=== PATIENT | female | born 1990 | race Caucasian/White ===

== ENCOUNTER → 2017-04-16 16:05 | Outpatient (CLI) | payer SELFPAY ==
[2017-04-16 16:40] LABS: ROM Internal Control Test YES-OK TO RESULT pt. (Internal QC)
[2017-04-16 16:41] LABS: ROM Patient Test Negative (Negative)
== END ==
PROVIDERS: Visit Provider Obstetrics & Gynecology
DX: Z34.83 Encounter for supervision of other normal pregnancy, third trimester (principal)
CPT/HCPCS: 84112

== ENCOUNTER → 2017-04-23 11:07 | Outpatient (CLI) | payer SELFPAY ==
[2017-04-23 11:26] LABS: Hematocrit 35.7 % (37-47); Hemoglobin 12.1 g/dl (12.0-15.0); Mean Corp Hgb Conc 33.9 g/gl (32-36); Mean Corpuscular Volume 88.4 fL (81-99); Mean Platelet Vol. 9.9 fl (6.2-12.0); Platelet Count 257 K/mm3 (150-450); RBC Distribution Width CV 14.2 % (11.6-14.6); RBC Distribution Width SD 45.1 fl (35.1-43.9); Red Blood Count 4.04 M/mm3 (4.2-5.4); Scan Indicated on CBC? Y/N NO; White Blood Count 11.3 K/mm3 (4.4-11.0)
[2017-04-23 11:33] LABS: Protein, Urine (Random) 16.9 mg/dL (<11.9)
[2017-04-23 11:54] LABS: ALB/GLOB Ratio 0.6 RATIO (0.9-2.4); AST(SGOT) 14 U/L (15-37); Alanine Aminotransfer ALT/SGPT 17 U/L (13-56); Albumin, Serum 2.6 g/dL (3.2-5.0); Alkaline Phosphatase 136 U/L (45-117); Anion Gap 10 (5-15); BUN 6 mg/dL (7-18); BUN/Creat Ratio 15.2 RATIO (10-20); Calcium,Total 8.4 mg/dL (8.5-10.1); Chloride 106 mmol/L (98-107); Creatinine, Serum 0.39 mg/dL (0.55-1.02); EST Glomerular Filtration Rate 205 mL/min (>60); Est Glom Filt Rate - Afr Amer 248 mL/min (>60); Globulin 4.4 g/dL (2.2-4.2); Glucose 79 mg/dL (74-106); Potassium 3.8 mmol/L (3.5-5.1); Sodium Level 137 mmol/L (136-145); Uric Acid 4.9 mg/dL (2.6-6.0)
== END ==
DX: O12.03 Gestational edema, third trimester (principal); R03.0 Elevated blood-pressure reading, without diagnosis of hypertension; Z3A.00 Weeks of gestation of pregnancy not specified
CPT/HCPCS: 36415; 80053; 82570; 84156; 84550; 85027

== ENCOUNTER 2017-05-03 02:20 | Inpatient (IN) | payer SELFPAY ==
[2017-05-03 03:31] VITALS: BMI 42.0
[2017-05-03] MEDS: Lactated Ringers 1,000 ML 50 ML IV ×5 (03:45→19:32)
[2017-05-03 03:58] LABS: Hemoglobin 12.1 g/dl (12.0-15.0); Mean Corp Hgb Conc 33.6 g/gl (32-36); Mean Corpuscular Hgb 29.8 pg (27.0-32.0); Mean Corpuscular Volume 88.7 fL (81-99); Mean Platelet Vol. 10.5 fl (6.2-12.0); Platelet Count 250 K/mm3 (150-450); RBC Distribution Width CV 14.6 % (11.6-14.6); RBC Distribution Width SD 46.1 fl (35.1-43.9); Red Blood Count 4.06 M/mm3 (4.2-5.4); White Blood Count 16.6 K/mm3 (4.4-11.0)
[2017-05-03 04:02] LABS: Scan Indicated on CBC? Y/N NO
[2017-05-03] MEDS: Acetaminophen 325 MG Tablet PO ×2 (08:32→16:06)
[2017-05-03] MEDS: Oxytocin 30 units/NS 500 ml 30 UNITS/500 ML IV.SOLN IV (10:00)
[2017-05-03] MEDS: 0.9% Saline Lock 10 ML Syringe IV ×2 (13:13→21:04)
--- NOTE | 2017-05-03 18:30 | PCM.PN.BLA ---
Progress Note LABOR PROGRESS NOTE No complaints. She is comfortable. AVSS GEN - NAD FHR 130, moderate variabiliyt, + accelerations, + variable decelerations TOCO 4/10 min SVE 8/90/-2 by my exam. A/P: 26yo G1 @ 40wga in active labor, Cat II FHR -Unclear progression of labor curve. Will repeat exam in approximately 2 hours and if unchanged plan for section. - status overall reassuring
--- NOTE | 2017-05-03 20:45 | PCM.PN.BLA ---
Progress Note LABOR PROGRESS NOTE Relates she is feeling more painfulness in the vagina and in her left lower abdomen. AVSS GEN - NAD, AAO x 3 FHR 150, moderate variability, + acceleratoins, + variable deceleration, + prolonged deceleration TOCO 5/10 min SVE 8/90/0, no signifificant caput A/P: 26yo G1 @ 40wga in active labor, Cat II FHR -Protracted active phase however significant change in station since my last exam -Plan for repeat exam in 2 hours -Anesthesiology consult for pain management
[2017-05-03] MEDS: Ondansetron 4 MG/2 ML Vial IV (22:57)
--- NOTE | 2017-05-03 23:01 | PCM.PN.BLA ---
Progress Note LABOR PROGRESS NOTE Relates discomfort has returned. AVSS GEN- NAD, AAO x 3 SVE 8-8.5/90/0 TOCO 4/10 min FHR 135, moderate variability, + accelerations, no decelerations A/P: 26yo G1 @ 40wga in active labor with arrest of dilation, Cat I FHR -Findings reviewed. Patient with 8cm dilation since approximately 1100h-1430h with only change in station. -Given no significant change at this time, recommend proceed with section. -Reviewed indications, risks including pain, bleeding, infection, injury to bowel or bladder, hemorrhage, possible hysterectomy, VTE reviewed. Discussed how C/S performed. Patient and family given opportunity to ask questions and questions answered to their satisfaction. - status overall reassuring
[2017-05-03] MEDS: Sodium Citrate/Citric Acid 30 ML UDC PO (23:09)
[2017-05-03] MEDS: Cefazolin 2 GM in 0.9% Normal Saline 100 ML IV (23:30)
[2017-05-03] MEDS: Oxytocin 30 units/NS 500 ml 30 UNITS/500 ML IV.SOLN 167 UNITS IV (23:51)
[2017-05-03] MEDS: Methylergonovine 0.2 MG/ML Ampul IM (23:53)
[2017-05-04] VITALS (42 sets, daily range): BP systolic 91–148; BP diastolic 54–128; PULSE 100–140; RESP 16–23; TEMP 36.5–37.7; O2SAT 93–100; BMI 42.0; BMI 44.3
--- NOTE | 2017-05-04 | PLAC_PTH ---
PATIENT: ADONIS ADAMS LOC: [facility] U#:[id number] AGE/SX: 26/F ROOM: [facility] RE05/03/[address]: Dr. Fuentes Del Rosario MD : 1990 BED: 1 DIS: 05/07/2017 SPEC #: [id number] RECD: 05/04/17 10:42 STATUS: EARNEST RESurjit #: [id number] MART: 05/04/17 00:[address]: Fuentes Del Rosario DEPT: SURGICAL PATHOLOGY RECD BY: Kenan Pandey ENTERED: 05/04/17 10:42 SP TYPE: PLACENTA OTHR DR: Dr. Jon Pisano, DO No Primary Care Phys Tissues: Placenta, NOS Procedures: Surgery Specimen Level V HEADER OPERATION: Primary section PRE-OP DIAGNOSIS: 40wga, prolonged labor TISSUE SUBMITTED: Placenta MICROSCOPIC DIAGNOSIS Placenta: Placental disc - third trimester placenta (390 gm). - Focal acute vasculitis of subamniotic blood vessels. Membranes ? moderate to severe acute chorioamnionitis. Umbilical cord - three blood vessels and moderate to severe acute funisitis. SJ:stefan 05/07/17 MICROSCOPIC DESCRIPTION Slides are reviewed. GROSS DESCRIPTION SPECIMEN: PLACENTA / CLINICAL INFORMATION: A. Weight: 4.254 kg B. Gestational Age: 40 weeks C. Sex: Male PLACENTAL WEIGHT (POST FIXATION): 390 gm PLACENTAL DIMENSIONS: 21 x 15 x 2 cm PLACENTAL SHAPE: Usual ovoid PLACENTAL WEIGHT FOR GESTATIONAL AGE: Within 10-99th percentile MEMBRANES - Present A. Insertion: Marginal B. Site of rupture from edge: 1 cm from edge of placental disc C. Color of membrane: Claire-greenish consistent with meconium staining. D. Abnormalities: None UMBILICAL CORD - Present A. Color: Claire-huynh B. Insertion: Central C. Length: 2.5 cm. Also present in the container is a detached segment of umbilical cord measuring 32 cm in length and 1.5 to 3 cm in diameter. D. Diameter: Up to 2 cm (attached segment of umbilical cord) E. Number of vessels: Three F. Abnormalities: None PLACENTAL DISC - Present A. Color of surface: Claire-huynh B. surface abnormalities: None C. Maternal cotyledons: Intact with minimal tears D. Attached retro placental clot: No clot E. Cut surface: Dark red and spongy F. Lesions: None G. Separate clot: Absent SECTIONS SUBMITTED: 1. Membrane roll 2. Cord, maternal end 3. Cord, end 4. Placental disc, and maternal surfaces 5. Placental disc, and maternal surfaces 6. Placental disc, and maternal surfaces MARCELLO:stefan 05/04/17 TC:2 CPT: 95229
--- NOTE | 2017-05-04 01:14 | OP.PCM_ITS ---
- Problem List (1) 40 weeks gestation of Status: Acute (2) Delivery of by section Status: Acute Delivery Classification: HECTOR Final ANDREA: 05/03/17 Final ANDREA Source: US <20 weeks Gestational age: 40 Weeks and 1 Days Indications: Ms. Marcos is a 26-year-old 1 para 0 at 40 weeks gestational age admitted in labor who progressed to 8-9 cm dilatation with Pitocin augmentation with no further progression of dilatation. She was counseled regarding risks, benefits, indications and opted to proceed with section for arrest of dilation. Informed consent was obtained prior to procedure. Indications for : Prolonged Active Phase, - - Arrest of dilation Description of Procedure: The patient was taken to the operating room and spinal analgesia was administered. She is placed in a dorsal supine position with left lateral tilt. The perineum and abdomen were prepped and draped in sterile fashion. And the spinal was found to be adequate. A Pfannenstiel incision was made using a scalpel and brought down to incise the subcutaneous tissue and rectus fascia at the midline. Subcutaneous tissue was bluntly dissected off the fascia laterally. The fascial incision was dissected laterally and cephalad using curved Tucker scissors. The superior leaflet of the rectus fascia was grasped using Manuel clamps and bluntly dissected and sharply dissected from the underlying rectus muscle. In a similar fashion the inferior rectus fascia was dissected from the underlying muscle. The rectus muscles were bluntly at the midline. The peritoneum was identified and entered [sharply]. Peritoneal incision was extended sharply. The bladder blade was placed into the abdomen and the vesicouterine peritoneal fold identified. The fold was incised and a bladder flap created. Bladder blade was then repositioned to the abdomen. A low transverse hysterotomy was made using the [Metzenbaum scissors] to level of the membranes. The hysterotomy was extended bluntly cephalad and caudad. The membranes were then ruptured revealing questionably light meconium versus mucopurulent fluid. The head was elevated and brought to the level of the hysterotomy and the infant delivered revealing vigorous [male] . The cord was doubly clamped and cut. The infant was passed to awaiting [nursery personnel]. The placenta was manually removed from the uterus following cord avulsion and appeared intact on inspection. The uterus was rubberized cleared of debris. There was difficulty achieving visualization initially due to blood loss from the hysterotomy and mild uterine atony. A single dose of IM Methergine was administered in addition to IV pitocin. The hysterotomy was then repaired using 0 Vicryl running lock suture then returned to the abdomen. However the hysterotomy appeared mal- approximated with the abdominal peritoneum. Hysterotomy stitch was removed. The bladder blade was then repositioned to the abdomen. And the inferior edges of the hysterotomy were grasped. The hysterotomy was again repaired using 0 Vicryl running lock suture with evangelical of normal anatomy. a second imbricating layer was also placed for additional hemostasis. A figure of 8 stitch was placed at the left hysterotomy for additional hemostasis with hemostasis attained. Paracolic gutters were packed in the hysterotomy inspected for 2 minutes with excellent hemostasis. Sean was placed for continued hemostasis along denuded peritoneum. And the packing laps are removed. The bladder blade was removed. The anterior cul-de-sac was cleared of debris. The peritoneum was reapproximated using 2-0 Vicryl running suture. The rectus fascia was closed using 0 Vicryl running suture. The subcutaneous tissue was sponge irrigated and small capillary bleeding controlled using the Bovie device. The subcutaneous tissue was reapproximated using 2-0 Vicryl. The skin was closed using 4-0 Monocryl subcuticularly by the UNIFORM ATTENDANT under my supervision. This was followed by [place] and a Mepilex occlusive dressing was placed over the incision. The fundus was firm. The patient was then transferred to the recovery room without complication. Sponge, instrument, and needle counts were correct ?2. Infant weight 4254g Amniotic Membrane Rupture Type: Spontaneous Amniotic Fluid Description: Moderate meconium Placenta Disposition: [facility] Specimen(s) sent to pathology: placenta Drain: Franco to straight drain Fluids Replaced: 1500 mL Cord Entanglement: None Nuchal Cord Compression: Without compression Cord Vessel Description: 3 Vessels Esitmated Blood Loss (ml): 1400 Infant Gender: Male (1 minute): 9 (5 minute): 9 Delayed cord clamping: Yes Pre-op Antibiotic Given: Ancef 2 grams IV x1 Pt instructed on risks of surgery: Bleeding, Infection, Injury to surrounding structure(s) including bowel and bladder, - - Possible hysterectomy - Admit VTE Documentation VTE Present on Admission: No VTE Mechan Device Prophylaxis: SCD's VTE Pharm Prophylaxis ordered?: No
[2017-05-04] MEDS: miSOPROStol 200 MCG Tablet 800 MCG RECTAL (01:20)
[2017-05-04] MEDS: Carboprost Tromethamine 250 MCG/ML Ampul IM ×3 (01:39→03:11)
[2017-05-04 01:41] LABS: Hematocrit 24.8 % (37-47); Hemoglobin 8.2 g/dl (12.0-15.0); Mean Corp Hgb Conc 33.1 g/gl (32-36); Mean Corpuscular Volume 90.8 fL (81-99); Mean Platelet Vol. 9.9 fl (6.2-12.0); Platelet Count 285 K/mm3 (150-450); RBC Distribution Width CV 14.6 % (11.6-14.6); RBC Distribution Width SD 46.4 fl (35.1-43.9); Red Blood Count 2.73 M/mm3 (4.2-5.4)
[2017-05-04 01:42] LABS: Scan Indicated on CBC? Y/N NO
[2017-05-04 01:49] LABS: International Normalized Ratio 1.3; Prothrombin Time (Protime)PT. 16.1 SECONDS (11.7-14.9)
[2017-05-04 01:50] LABS: Fibrinogen 484 mg/dl (203-444); Partial Thromboplast Time 28.3 Seconds (24.1-36.2)
[2017-05-04] MEDS: Clindamycin 900 MG/50 ML BAG 75 MG IV ×3 (02:50→22:26)
[2017-05-04 03:18] LABS: Absolute Neutrophil Count 14.5 X10^3/uL (2.0-7.7); Basophil# 0.01 X10^3/uL; Basophil% 0.1 % (0-1); Eosinophil# 0.02 X10^3/uL; Eosinophils% 0.1 % (0-5); Fibrinogen 313 mg/dl (203-444); Hematocrit 23.9 % (37-47); Hemoglobin 7.9 g/dl (12.0-15.0); International Normalized Ratio 1.6; Lymphocyte % 7.6 % (19-41); Mean Corp Hgb Conc 33.1 g/gl (32-36); Mean Corpuscular Hgb 28.9 pg (27.0-32.0); Mean Corpuscular Volume 87.5 fL (81-99); Mean Platelet Vol. 9.2 fl (6.2-12.0); Monocyte# 1.21 X10^3/uL; Monocyte% 7.1 % (0-10); Neutrophil # 14.51 X10^3/uL (2.7-7.7); Neutrophil % 84.6 % (47-70); Partial Thromboplast Time 31.5 Seconds (24.1-36.2); Platelet Count 221 K/mm3 (150-450); Prothrombin Time (Protime)PT. 18.1 SECONDS (11.7-14.9); RBC Distribution Width CV 15.2 % (11.6-14.6); RBC Distribution Width SD 48.6 fl (35.1-43.9); Red Blood Count 2.73 M/mm3 (4.2-5.4); White Blood Count 17.1 K/mm3 (4.4-11.0)
[2017-05-04 03:19] LABS: Differential Indicated SCAN CRITERIA MET; POSITIVE COUNT NO; POSITIVE DIFFERENTIAL NO; POSITIVE MORPHOLOGY YES
--- NOTE | 2017-05-04 03:40 | RAD_ITS ---
STUDY: X-RAY - PELVIS REASON FOR EXAM: Female, 26 years old. Question foreign body, no confluent sponges or instrumentation done prior to emergent . TECHNIQUE: One view of the pelvis was obtained. COMPARISON: None. FINDINGS: There is a catheter superimposed over the midline urinary bladder level and a catheter coiling over the mid and right pelvis possible a drain. No other radiopaque densities detected. Normal visualized soft tissue structures. Normal bilateral iliac wings, sacroiliac joints and visualized sacrum. Normal visualized bilateral superior and inferior pubic rami. Normal pubic symphysis. Normal ischial tuberosities. Normal visualized right femoral head. Normal right acetabulum. Normal right hip joint. Normal visualized left femoral head. Normal left acetabulum. Normal left hip joint. RAD/Pelvis 1 or 2 Views IMPRESSION: Catheters as outlined above. No other foreign bodies noted. Electronically Signed: Gila Vargas MD at 4:41 EST , Service support ,
--- NOTE | 2017-05-04 03:48 | NURSING ---
0345 report called to INSPECTOR AUTOMATIC TYPEWRITERARLIN Hernandez
[2017-05-04 03:50] LABS: Hematocrit 27.3 % (37-47); Hemoglobin 9.2 g/dl (12.0-15.0); Mean Corp Hgb Conc 33.7 g/gl (32-36); Mean Corpuscular Volume 88.9 fL (81-99); Mean Platelet Vol. 9.8 fl (6.2-12.0); Platelet Count 188 K/mm3 (150-450); RBC Distribution Width CV 14.5 % (11.6-14.6); RBC Distribution Width SD 45.2 fl (35.1-43.9); Red Blood Count 3.07 M/mm3 (4.2-5.4); Scan Indicated on CBC? Y/N NO; White Blood Count 13.8 K/mm3 (4.4-11.0)
[2017-05-04 04:22] LABS: LDH 201 U/L (84-246)
[2017-05-04 04:24] LABS: ALB/GLOB Ratio 0.6 RATIO (0.9-2.4); AST(SGOT) 14 U/L (15-37); Alanine Aminotransfer ALT/SGPT 8 U/L (13-56); Albumin, Serum 1.1 g/dL (3.2-5.0); Alkaline Phosphatase 66 U/L (45-117); Anion Gap 10 (5-15); BUN 5 mg/dL (7-18); BUN/Creat Ratio 11.2 RATIO (10-20); Chloride 109 mmol/L (98-107); Creatinine, Serum 0.44 mg/dL (0.55-1.02); EST Glomerular Filtration Rate 178 mL/min (>60); Est Glom Filt Rate - Afr Amer 215 mL/min (>60); Estimated Creatinine Clearance 143.64 ml/min; Glucose 134 mg/dL (74-106); Potassium 4.7 mmol/L (3.5-5.1); Protein, Total 3.1 g/dL (6.4-8.2); Sodium Level 138 mmol/L (136-145)
--- NOTE | 2017-05-04 04:37 | PCM.OPRPT ---
Problem List (1) Delivery of by section Status: Acute (2) hemorrhage Status: Acute Qualifiers: hemorrhage type: other immediate Qualified Code(s): O72.1 - Other immediate hemorrhage (3) Endometritis Status: Acute Report of Operation Date of Procedure: 05/04/17 Pre-Operative Diagnosis: Status post section, hemorrhage Post-Operative Diagnosis: Status post section, hemorrhage, endometritis Surgery/Procedure Performed:: Examination under anesthesia, dilation and curettage, Bakri balloon placement Description of Surgical Findings:: Lower uterine segment atony test preparation tutor: Alison Esposito Type of Anesthesia:: MAC Anesthesiologist: Betty Saleh Specimen's removed: none Drains: Bakri - no drainage Estimated Blood Loss (mL): 1490 mL Description of Procedure: The labor and delivery nurse requested I return to the OR shortly after I completed patient section for vaginal bleeding. On my arrival the patient had some blood and clots on a Chux pad. Her fundus was firm. Intrauterine exam was performed retrieving approximately 500 cc of blood and clot in addition to what was already present. There was heavy vaginal bleeding and the patient had become significantly tachycardic and was noted to have pallor. At this time I decided to proceed with an examination under anesthesia. Cytotec 800 mcg was placed per rectally. Following discussion with the APPLIANCE SERVICE TECHNICIAN, MAC was performed. I quickly left the OR to discuss the turn of events with Nelli's , Robert, and reviewed with him my concern for hemorrhage and the necessity of identifying its source and cause, my plan to proceed with examination under anesthesia, and blood transfusion. He was in agreement with plan. On return to the OR the patient was comfortable and in dorsal lithotomy. The perineum was prepped and draped in sterile fashion. Vaginal wall retractors were placed. There was no vaginal laceration present and I walked ring forceps around the cervix 360? . There was no evidence of cervical laceration. I performed ultrasound-guided curettage with no retrieval of products of conception. This is also followed by gauze curettage with some improvement of lower uterine segment tone however the bleeding continued. At this time the patient was given a dose of Hemabate IM. I placed a Bakri balloon with a total of 360 cc of normal saline however there was little drainage on return. The vagina was packed. Transexamic acid was also administered IV. The patient's heart rate had improved from the 160s down to the 120s-130s and her blood pressure remained stable however her heart rate did not decrease further. On ultrasound there is no evidence of free fluid in the abdomen or pelvis however this was limited by body habitus. Blood transfusion was started in the examination under anesthesia. I suspected the source of bleeding was subclinical chorioamnionitis now endometritis given the presence of the questionably mucopurulent amniotic fluid noted at the time of rupture during section. There was no other evidence for source of bleeding. Gentamicin and clindamycin were ordered.There was no significant free fluid in pelvis noted on US. I waited approximately 15 minutes however there was no further improvement of the patient's vitals and mild abdominal distention was noted, thus I opted to proceed with exploratory laparotomy. Please see operative note for further details laparotomy. Sponge counts for the EUA were correct x 2. - Admit VTE Documentation VTE Present on Admission: No VTE Mechan Device Prophylaxis: SCD's VTE Pharm Prophylaxis ordered?: No
--- NOTE | 2017-05-04 05:05 | NURSING ---
4,000ml total IV intake per anesthesia this includes all IV fluids and blood products. see anesthesia record
--- NOTE | 2017-05-04 05:17 | PCM.OPRPT ---
Problem List (1) Delivery of by section Status: Acute (2) hemorrhage Status: Acute (3) Endometritis Status: Acute Report of Operation Date of Procedure: 05/04/17 Pre-Operative Diagnosis: Status post section, hemorrhage Post-Operative Diagnosis: Status post section, hemorrhage, endometritis Surgery/Procedure Performed:: Exploratory laparotomy Description of Surgical Findings:: Lower uterine segment atony artificial flowers starcher: Mela Henry artificial flowers starcher: Alison Esposito Type of Anesthesia:: General Anesthesiologist: Tristin Fierro Specimen's removed: none Drains: LISET Estimated Blood Loss (mL): 400 Description of Procedure: Prior operative notes and progress notes for details of patient's hemorrhage. Given persistent tachycardia in setting of hemorrhage despite intravenous fluid resuscitation and blood transfusion and vaginal packings, I recommended proceeding with exploratory laparotomy. I reviewed with Nelli's Robert, my concern and the importance of ruling out any internal/intra-abdominal source of bleeding as this must be addressed if present to ensure hemodynamic stability. I discussed with him potential for further surgery, including hysterectomy, and reviewed risks of laparotomy. Her agreed with plan to proceed with laparotomy. The vaginal packing was removed and the patient was placed into the dorsal supine position. She was under general anesthesia and intubated. The abdomen was prepped and draped in sterile fashion. The Pfannenstiel incision was taken down using scalpel and scissors to level the peritoneum. The peritoneal sutures were cut and the abdomen entered. The uterus was exteriorized and inspected. The uterus was boggy at the lower uterine segment and the BAKRI balloon was not palpable. I began vigorous massage of the uterus. At this time Dr. Pham performed an examination vaginally and it appeared that the bulky balloon had expulsed. Intramyometrial hemabate was placed. The Bakri balloon was replaced with a total of 320 cc normal saline and subsequently drained 300 mL of blood. A second dose intramyometrial hemabate dose was also injected. Uterine tone had improved. The posterior cul-de-sac was cleared of debris and clots and the uterus and adnexa were returned to the abdomen. The hysterotomy was again inspected there was no bleeding along the suture line. There was a small amount of capillary bleeding from along denuded peritoneum of the inferior broad ligament bilaterally but no active bleeding. FloSeal was placed at these sites for additional hemostasis. I proceeded with closure given no active bleeding. The peritoneum was reapproximated with the muscle using 2-0 Vicryl mattress sutures. Fascia was reapproximated using 0 Vicryl running suture. The subcutaneous tissue was reapproximated using 2-0 Vicryl running suture. Skin was closed using 4-0 Monocryl. Sean was placed along each of the tissue layers from the hysterotomy, muscle, fascia, subcutaneous tissue layer. The fundus remained firm and a Mepilex occlusive dressing was placed. The sponge and instrument count was correct x 2, however, as the count occurred after opening of the tray and laparotomy, an abdominal film was obtained. The abdominal film had no evidence of retained sponge, needle or instruments. That patient was awakened, extubated and transferred to the ICU for recovery and post-op care. - Admit VTE Documentation VTE Present on Admission: No VTE Mechan Device Prophylaxis: SCD's VTE Pharm Prophylaxis ordered?: No
--- NOTE | 2017-05-04 05:25 | OP.PCM_ITS ---
Problem List (1) Delivery of by section Status: Acute (2) hemorrhage Status: Acute (3) Endometritis Status: Acute Report of Operation Date of Procedure: 05/04/17 Pre-Operative Diagnosis: Status post section, hemorrhage Post-Operative Diagnosis: Status post section, hemorrhage, endometritis Surgery/Procedure Performed:: Exploratory laparotomy Description of Surgical Findings:: Lower uterine segment atony regulatory internship: Mela Henry regulatory internship: Alison Esposito Type of Anesthesia:: General Anesthesiologist: Tristin Fierro Specimen's removed: none Drains: LISET Estimated Blood Loss (mL): 400 Description of Procedure: Prior operative notes and progress notes for details of patient's hemorrhage. Given persistent tachycardia in setting of hemorrhage despite intravenous fluid resuscitation and blood transfusion and vaginal packings, I recommended proceeding with exploratory laparotomy. I reviewed with Nelli's Robert, my concern and the importance of ruling out any internal/intra- abdominal source of bleeding as this must be addressed if present to ensure hemodynamic stability. I discussed with him potential for further surgery, including hysterectomy, and reviewed risks of laparotomy. Her agreed with plan to proceed with laparotomy. The vaginal packing was removed and the patient was placed into the dorsal supine position. She was under general anesthesia and intubated. The abdomen was prepped and draped in sterile fashion. The Pfannenstiel incision was taken down using scalpel and scissors to level the peritoneum. The peritoneal sutures were cut and the abdomen entered. The uterus was exteriorized and inspected. The uterus was boggy at the lower uterine segment and the BAKRI balloon was not palpable. I began vigorous massage of the uterus. At this time Dr. Pham performed an examination vaginally and it appeared that the bulky balloon had expulsed. Intramyometrial hemabate was placed. The Bakri balloon was replaced with a total of 320 cc normal saline and subsequently drained 300 mL of blood. A second dose intramyometrial hemabate dose was also injected. Uterine tone had improved. The posterior cul-de-sac was cleared of debris and clots and the uterus and adnexa were returned to the abdomen. The hysterotomy was again inspected there was no bleeding along the suture line. There was a small amount of capillary bleeding from along denuded peritoneum of the inferior broad ligament bilaterally but no active bleeding. FloSeal was placed at these sites for additional hemostasis. I proceeded with closure given no active bleeding. The peritoneum was reapproximated with the muscle using 2-0 Vicryl mattress sutures. Fascia was reapproximated using 0 Vicryl running suture. The subcutaneous tissue was reapproximated using 2-0 Vicryl running suture. Skin was closed using 4-0 Monocryl. Sean was placed along each of the tissue layers from the hysterotomy, muscle, fascia, subcutaneous tissue layer. The fundus remained firm and a Mepilex occlusive dressing was placed. The sponge and instrument count was correct x 2, however, as the count occurred after opening of the tray and laparotomy, an abdominal film was obtained. The abdominal film had no evidence of retained sponge, needle or instruments. That patient was awakened, extubated and transferred to the ICU for recovery and post-op care. - Admit VTE Documentation VTE Present on Admission: No VTE Mechan Device Prophylaxis: SCD's VTE Pharm Prophylaxis ordered?: No
--- NOTE | 2017-05-04 06:05 | NURSING ---
called by this RN. notified of no change in fundal exam, blood clots noted in tapanode balloon tubing, RN attempted to milk small clots out of tubing without success. New order received to flush tampanode with 10-20 ml NS x1. physician updated on vaginal packing noted to have small amts of lochia on it. HR 120's and DIRK drained has been emptied for 100ml and approximately 50ml of drainage noted in dirk drain by ROCK LOADER 0611 balloon tamponade flushed with 20ml NS, flushed easily
[2017-05-04] MEDS: Cefazolin 1 GM/50 ML BAG IV ×2 (06:47→14:02)
--- NOTE | 2017-05-04 06:47 | NURSING ---
please see ICU charting for vital signs and intake and outputs
[2017-05-04] MEDS: 0.9% NaCl IVPB Med Flush (250 mL) 15 ML IV (06:56)
[2017-05-04] MEDS: Methylergonovine 0.2 MG/ML Ampul IM (07:14)
--- NOTE | 2017-05-04 07:44 | NURSING ---
between 429 and 714 balloon tamponade remains in place with stop-cock intact
--- NOTE | 2017-05-04 08:06 | NURSING ---
xray obtained in OR after laparotomy completed due to emergency surgery and no time to count
--- NOTE | 2017-05-04 08:20 | NURSING ---
Balloon Tampnod intact and lite pink drainage.
[2017-05-04 08:32] LABS: International Normalized Ratio 1.4; Prothrombin Time (Protime)PT. 16.2 SECONDS (11.7-14.9)
[2017-05-04 08:33] LABS: Fibrinogen 376 mg/dl (203-444); Partial Thromboplast Time 30.6 Seconds (24.1-36.2)
[2017-05-04 08:36] LABS: Basophil# 0.01 X10^3/uL; Hematocrit 21.4 % (37-47); Hemoglobin 7.2 g/dl (12.0-15.0); Mean Corp Hgb Conc 33.6 g/gl (32-36); Mean Corpuscular Hgb 28.7 pg (27.0-32.0); Mean Corpuscular Volume 85.3 fL (81-99); Mean Platelet Vol. 9.1 fl (6.2-12.0); Monocyte# 0.81 X10^3/uL; Neutrophil # 8.94 X10^3/uL (2.7-7.7); Platelet Count 143 K/mm3 (150-450); RBC Distribution Width CV 14.9 % (11.6-14.6); RBC Distribution Width SD 46.3 fl (35.1-43.9); Red Blood Count 2.51 M/mm3 (4.2-5.4); White Blood Count 10.7 K/mm3 (4.4-11.0)
[2017-05-04 08:37] LABS: Differential Indicated SCAN CRITERIA MET; POSITIVE COUNT NO; POSITIVE DIFFERENTIAL NO; POSITIVE MORPHOLOGY YES
[2017-05-04 08:38] LABS: M R Staph aureus DNA By PCR Negative (Negative); Probe Check PASS; Specimen Processing Control PASS
[2017-05-04 08:41] LABS: Anion Gap 11 (5-15); BUN 5 mg/dL (7-18); BUN/Creat Ratio 11.2 RATIO (10-20); Chloride 106 mmol/L (98-107); Creatinine, Serum 0.44 mg/dL (0.55-1.02); Glucose 116 mg/dL (74-106); Potassium 3.7 mmol/L (3.5-5.1); Sodium Level 138 mmol/L (136-145)
--- NOTE | 2017-05-04 08:47 | NURSING ---
Mother initiated pumping and instructions given. Balloon tampnod intact .
[2017-05-04 09:01] LABS: Absolute Lymphocyte Count 0.75 X10^3/ul (0.83-4.51); Absolute Neutrophil Count 7.7 X10^3/uL (2.0-7.7); Scan Smear per Review Criteria MANUAL DIFF; Total Cells Counted 100 (MANUAL DIFF)
[2017-05-04 09:02] LABS: Lymphocyte 7 % (19-41); Metamyelocyte 6 % (0-1); Monocyte 9 % (0-10); Myelocyte 1 (0-0); Neutrophil-Band 10 % (0-5); Neutrophil-Segmented 62 % (47-70)
[2017-05-04 09:10] LABS: Lactic Acid 3.8 mmol/L (0.4-2.0)
--- NOTE | 2017-05-04 09:43 | PCM.CON.CC ---
Reason for Consult Date of Consultation: 05/04/17 Reason for Consultation: hemorrhage History of Present Illness: The patient is a 26-year-old female, with a history as outlined below, who presented on May 03 in labor for planned delivery. Although there were initial plans for vaginal delivery, there was a lack of progression in dilation even with the use of Pitocin augmentation. Therefore, the decision was made to take the patient for a section. During the skein yarn dyer hours of May 04, the patient underwent planned section with 1.4 L of blood loss noted. Short time following the completion of the the patient began to experience heavy vaginal bleeding became significantly tachycardic. The patient subsequently underwent a D&C with Bakri balloon placement. There was concern for potential endometritis given the presence of the mucopurulent amniotic fluid noted at the time of rupture during section. Unfortunately, there was no change in the patient clinically and she was therefore taken for exploratory laparotomy. Throughout the skein yarn dyer hours, she received a total of 4 units of packed red blood cells, along with 4 units of FFP. Postoperatively, she was transferred to the medical intensive care unit for ongoing management. Past Medical History Allergies latex Allergy (Verified 05/03/17 03:30) Rash codeine Adverse Reaction (Verified 05/03/17 03:30) Vomiting Home Medications: Ambulatory Orders Medication Instructions Recorded Vits [Prenatabs FA] 1 tablet PO DAILY 05/03/17 Smoking Status: Never smoker Review of Systems Constitutional: Denies: Chills, Fever, Weight Change HEENT: Denies: Head Aches, Sinus Congestion, Sinus Drainage Cardiovascular: Denies: Chest Pain, Palpitations Respiratory: Denies: Cough, Shortness of breath at rest, Sputum production Gastrointestinal: Reports: Abdominal Pain. Denies: Nausea, Vomiting Genitourinary: Denies: Dysuria Musculoskeletal: Denies: Joint Pain, Joint Tenderness Skin: Denies: Rash, Wounds Neurological: Denies: Numbness, Tingling, Focal weakness Psychiatric: Denies: Anxiety, Depression, Homicidal Ideations, Suicidal Ideations Hematologic/ Lymphatic: Reports: Hx of blood transfusion Patient Problems: Active and Suspected Problems 40 weeks gestation of (Acute) Delivery of by section (Acute) hemorrhage (Acute) Endometritis (Acute) Objective: The patient's most recent lab work, culture data and imaging studies have all been personally reviewed. - Physical Exam General: Alert, Oriented x3, Cooperative, No apparent distress HEENT: Atraumatic, PERRLA, Normocephalic Oral: No Gingival or Mucosal Lesions/ Ulcerations, Dry Mucosa Neck: Supple, No Nodes, Trachea Midline Lungs: No rhonchi, No wheeze, No rales, Diminished Cardiovascular: Normal S1, Normal S2, No murmurs, Tachycardic Abdomen: Soft, Hypoactive Bowel Sounds, Tender, - - Bakri balloon remains in place. LISET drain in place Extremities: No clubbing, No cyanosis, - - Trace lower extremity edema Skin: Incision - Dressed, C/D/I Musculoskeletal: No Muscle Wasting Lymphatic: No Cervical, Supraclavicular, or Inguinal Adenopathy Neurological: Neuro grossly intact Psych/Mental Status: Normal Affect, Appropriate Vital Signs Temp Pulse Resp BP Pulse Ox 98.7 F 125 H 19 H 91/61 98 05/04/17 08:00 05/04/17 08:00 05/04/17 08:00 05/04/17 08:00 05/04/17 09:31 Oxygen Flow Rate 2 Oxygen Delivery Method Nasal Cannula Weight: 227 lb 1.218 oz Body Mass Index (BMI) 44.3 Intake and Output for Last 24 Hours 05/02/17 05/03/17 05/04/17 23:59 23:59 23:59 Intake Total 5320 / 5320 4250.6 / 4250.6 Output Total 2550 / 2550 4690 / 4690 Balance 2770 / 2770 -439.4 / -439.4 Laboratory Tests Past 24 Hrs 05/03/17 05/03/17 05/04/17 03:45 03:45 01:25 WBC 20.0 H RBC 2.73 L Hgb 8.2 L Hct 24.8 L MCV 90.8 MCH 30.0 MCHC 33.1 RDW 14.6 RDW Differential 46.4 H Plt Count 285 MPV 9.9 Immature Gran % (Auto) Neut % (Auto) Lymph % (Auto) [place] % (Auto) Eos % (Auto) Baso % (Auto) Absolute Neuts (auto) Absolute Lymphs (auto) Total Counted Neutrophils % (Manual) Band Neutrophils % Lymphocytes % (Manual) Monocytes % (Manual) Metamyelocytes % Myelocytes % Diff Path Review PT INR APTT Fibrinogen Sodium Potassium Chloride Carbon Dioxide Anion Gap BUN Creatinine Estim Creat Clear Calc Est GFR (MDRD) Af Amer Est GFR (MDRD) Non-Af BUN/Creatinine Ratio Glucose Lactic Acid Calcium Ionized Calcium Total Bilirubin AST ALT Alkaline Phosphatase Lactate Dehydrogenase Total Protein Albumin Globulin Albumin/Globulin Ratio MRSA (PCR) Crossmatch See Detail See Detail 05/04/17 05/04/17 05/04/17 01:25 02:50 02:50 WBC 17.1 H RBC 2.73 L Hgb 7.9 L Hct 23.9 L MCV 87.5 MCH 28.9 MCHC 33.1 RDW 15.2 H RDW Differential 48.6 H Plt Count 221 MPV 9.2 Immature Gran % (Auto) 0.500 Neut % (Auto) 84.6 H Lymph % (Auto) 7.6 L [place] % (Auto) 7.1 Eos % (Auto) 0.1 Baso % (Auto) 0.1 Absolute Neuts (auto) 14.5 H Absolute Lymphs (auto) 1.30 Total Counted Not Reportable Neutrophils % (Manual) Band Neutrophils % Lymphocytes % (Manual) Monocytes % (Manual) Metamyelocytes % Myelocytes % Diff Path Review PT 16.1 H 18.1 H INR 1.3 1.6 APTT 28.3 31.5 Fibrinogen 484 H 313 Sodium Potassium Chloride Carbon Dioxide Anion Gap BUN Creatinine Estim Creat Clear Calc Est GFR (MDRD) Af Amer Est GFR (MDRD) Non-Af BUN/Creatinine Ratio Glucose Lactic Acid Calcium Ionized Calcium Total Bilirubin AST ALT Alkaline Phosphatase Lactate Dehydrogenase Total Protein Albumin Globulin Albumin/Globulin Ratio MRSA (PCR) Crossmatch 05/04/17 05/04/17 05/04/17 02:50 02:50 03:32 WBC 13.8 H RBC 3.07 L Hgb 9.2 L Hct 27.3 L MCV 88.9 MCH 30.0 MCHC 33.7 RDW 14.5 RDW Differential 45.2 H Plt Count 188 MPV 9.8 Immature Gran % (Auto) Neut % (Auto) Lymph % (Auto) [place] % (Auto) Eos % (Auto) Baso % (Auto) Absolute Neuts (auto) Absolute Lymphs (auto) Total Counted Neutrophils % (Manual) Band Neutrophils % Lymphocytes % (Manual) Monocytes % (Manual) Metamyelocytes % Myelocytes % Diff Path Review PT INR APTT Fibrinogen Sodium 138 Potassium 4.7 Chloride 109 H Carbon Dioxide 19.0 L Anion Gap 10 BUN 5 L Creatinine 0.44 L Estim Creat Clear Calc 143.64 Est GFR (MDRD) Af Amer 215 Est GFR (MDRD) Non-Af 178 BUN/Creatinine Ratio 11.2 Glucose 134 H Lactic Acid Calcium 6.0 L* Ionized Calcium Total Bilirubin 0.70 AST 14 L ALT 8 L Alkaline Phosphatase 66 Lactate Dehydrogenase 201 Total Protein 3.1 L Albumin 1.1 L Globulin 2.0 L Albumin/Globulin Ratio 0.6 L MRSA (PCR) Crossmatch 05/04/17 05/04/17 05/04/17 06:00 08:15 08:15 WBC RBC Hgb Hct MCV MCH MCHC RDW RDW Differential Plt Count MPV Immature Gran % (Auto) Neut % (Auto) Lymph % (Auto) [place] % (Auto) Eos % (Auto) Baso % (Auto) Absolute Neuts (auto) Absolute Lymphs (auto) Total Counted Neutrophils % (Manual) Band Neutrophils % Lymphocytes % (Manual) Monocytes % (Manual) Metamyelocytes % Myelocytes % Diff Path Review PT 16.2 H INR 1.4 APTT 30.6 Fibrinogen 376 Sodium 138 Potassium 3.7 Chloride 106 Carbon Dioxide 21.0 Anion Gap 11 BUN 5 L Creatinine 0.44 L Estim Creat Clear Calc Est GFR (MDRD) Af Amer Est GFR (MDRD) Non-Af BUN/Creatinine Ratio 11.2 Glucose 116 H Lactic Acid Calcium Ionized Calcium Total Bilirubin AST ALT Alkaline Phosphatase Lactate Dehydrogenase Total Protein Albumin Globulin Albumin/Globulin Ratio MRSA (PCR) Negative Crossmatch 05/04/17 05/04/17 05/04/17 08:15 08:15 08:20 WBC 10.7 RBC 2.51 L Hgb 7.2 L Hct 21.4 L MCV 85.3 MCH 28.7 MCHC 33.6 RDW 14.9 H RDW Differential 46.3 H Plt Count 143 L MPV 9.1 Immature Gran % (Auto) HAND COOPER HELPER Neut % (Auto) HAND COOPER HELPER Lymph % (Auto) HAND COOPER HELPER [place] % (Auto) HAND COOPER HELPER Eos % (Auto) HAND COOPER HELPER Baso % (Auto) HAND COOPER HELPER Absolute Neuts (auto) 7.7 Absolute Lymphs (auto) 0.75 L Total Counted 100 Neutrophils % (Manual) 62 Band Neutrophils % 10 H Lymphocytes % (Manual) 7 L Monocytes % (Manual) 9 Metamyelocytes % 6 H Myelocytes % 1 H Diff Path Review May foll PT INR APTT Fibrinogen Sodium Potassium Chloride Carbon Dioxide Anion Gap BUN Creatinine Estim Creat Clear Calc Est GFR (MDRD) Af Amer Est GFR (MDRD) Non-Af BUN/Creatinine Ratio Glucose Lactic Acid 3.8 H Calcium Ionized Calcium Pending Total Bilirubin AST ALT Alkaline Phosphatase Lactate Dehydrogenase Total Protein Albumin Globulin Albumin/Globulin Ratio MRSA (PCR) Crossmatch Clinical Impression(s) from Imaging Studies Pelvis X-Ray 05/04/17 03:40 IMPRESSION: Catheters as outlined above. No other foreign bodies noted. Electronically Signed: Gila Vargas MD at 4:41 EST , Service support , Assessment/Plan Active and Suspected Problems 40 weeks gestation of (Acute) Delivery of by section (Acute) hemorrhage (Acute) Endometritis (Acute) RECOMMENDATIONS: 1. Continue to monitor serial blood counts. Hemoglobin again fell to 7.2 g/dL this morning. Therefore, the patient will receive an additional 2 units of packed red blood cells. 2. Recheck H&H 1 hour posttransfusion completion. 3. Continue antibiotics per OB 4. Clear liquid diet per OB. No need for supplemental IV fluids for now. 5. Oxycodone for pain 6. Wean supplemental oxygen to maintain saturations at or above 90%. 7. Encourage incentive spirometer use IMPRESSIONS: 1. Acute blood loss anemia secondary to hemorrhage Continue to monitor blood counts regularly. Will transfuse 2 units of additional packed red blood cells, given that the patient's hemoglobin was noted be 7.2 g/dL this morning. Check H&H 1 hour post transfusion. 2. Thrombocytopenia Likely consumptive in nature secondary to hemorrhage. No indication for transfusion at this time. We will continue to monitor. 3. Lactic acidemia Secondary to #1. Plan to repeat serum lactate level in 6 hours. Continue supplemental IV fluids and blood product administration in order to maintain hemodynamic stability. This note was generated with [employer] software. It may contain incorrect words, spelling, and punctuation that were not noted in checking the note before signing. Code Visit Inpatient E&M: 02572 Init Hosp L3
--- NOTE | 2017-05-04 09:53 | CON.PCM_ITS ---
Reason for Consult Date of Consultation: 05/04/17 Reason for Consultation: hemorrhage History of Present Illness: The patient is a 26-year-old female, with a history as outlined below, who presented on May 03 in labor for planned delivery. Although there were initial plans for vaginal delivery, there was a lack of progression in dilation even with the use of Pitocin augmentation. Therefore, the decision was made to take the patient for a section. During the telegraphic typewriter operator chief hours of May 04, the patient underwent planned section with 1.4 L of blood loss noted. Short time following the completion of the the patient began to experience heavy vaginal bleeding became significantly tachycardic. The patient subsequently underwent a D&C with Bakri balloon placement. There was concern for potential endometritis given the presence of the mucopurulent amniotic fluid noted at the time of rupture during section. Unfortunately, there was no change in the patient clinically and she was therefore taken for exploratory laparotomy. Throughout the telegraphic typewriter operator chief hours , she received a total of 4 units of packed red blood cells, along with 4 units of FFP. Postoperatively, she was transferred to the medical intensive care unit for ongoing management. Past Medical History Allergies latex Allergy (Verified 05/03/17 03:30) Rash codeine Adverse Reaction (Verified 05/03/17 03:30) Vomiting Home Medications: Ambulatory Orders Medication Instructions Recorded Vits [Prenatabs FA] 1 tablet PO DAILY 05/03/17 Smoking Status: Never smoker Review of Systems Constitutional: Denies: Chills, Fever, Weight Change HEENT: Denies: Head Aches, Sinus Congestion, Sinus Drainage Cardiovascular: Denies: Chest Pain, Palpitations Respiratory: Denies: Cough, Shortness of breath at rest, Sputum production Gastrointestinal: Reports: Abdominal Pain. Denies: Nausea, Vomiting Genitourinary: Denies: Dysuria Musculoskeletal: Denies: Joint Pain, Joint Tenderness Skin: Denies: Rash, Wounds Neurological: Denies: Numbness, Tingling, Focal weakness Psychiatric: Denies: Anxiety, Depression, Homicidal Ideations, Suicidal Ideations Hematologic/ Lymphatic: Reports: Hx of blood transfusion Patient Problems: Active and Suspected Problems 40 weeks gestation of (Acute) Delivery of by section (Acute) hemorrhage (Acute) Endometritis (Acute) Objective: The patient's most recent lab work, culture data and imaging studies have all been personally reviewed. - Physical Exam General: Alert, Oriented x3, Cooperative, No apparent distress HEENT: Atraumatic, PERRLA, Normocephalic Oral: No Gingival or Mucosal Lesions/ Ulcerations, Dry Mucosa Neck: Supple, No Nodes, Trachea Midline Lungs: No rhonchi, No wheeze, No rales, Diminished Cardiovascular: Normal S1, Normal S2, No murmurs, Tachycardic Abdomen: Soft, Hypoactive Bowel Sounds, Tender, - - Bakri balloon remains in place. LISET drain in place Extremities: No clubbing, No cyanosis, - - Trace lower extremity edema Skin: Incision - Dressed, C/D/I Musculoskeletal: No Muscle Wasting Lymphatic: No Cervical, Supraclavicular, or Inguinal Adenopathy Neurological: Neuro grossly intact Psych/Mental Status: Normal Affect, Appropriate Vital Signs Temp Pulse Resp BP Pulse Ox 98.7 F 125 H 19 H 91/61 98 05/04/17 08:00 05/04/17 08:00 05/04/17 08:00 05/04/17 08:00 05/04/17 09:31 Oxygen Flow Rate 2 Oxygen Delivery Method Nasal Cannula Weight: 227 lb 1.218 oz Body Mass Index (BMI) 44.3 Intake and Output for Last 24 Hours 05/02/17 05/03/17 05/04/17 23:59 23:59 23:59 Intake Total 5320 / 5320 4250.6 / 4250.6 Output Total 2550 / 2550 4690 / 4690 Balance 2770 / 2770 -439.4 / -439.4 Laboratory Tests Past 24 Hrs 05/03/17 05/03/17 05/04/17 03:45 03:45 01:25 WBC 20.0 H RBC 2.73 L Hgb 8.2 L Hct 24.8 L MCV 90.8 MCH 30.0 MCHC 33.1 RDW 14.6 RDW Differential 46.4 H Plt Count 285 MPV 9.9 Immature Gran % (Auto) Neut % (Auto) Lymph % (Auto) [place] % (Auto) Eos % (Auto) Baso % (Auto) Absolute Neuts (auto) Absolute Lymphs (auto) Total Counted Neutrophils % (Manual) Band Neutrophils % Lymphocytes % (Manual) Monocytes % (Manual) Metamyelocytes % Myelocytes % Diff Path Review PT INR APTT Fibrinogen Sodium Potassium Chloride Carbon Dioxide Anion Gap BUN Creatinine Estim Creat Clear Calc Est GFR (MDRD) Af Amer Est GFR (MDRD) Non-Af BUN/Creatinine Ratio Glucose Lactic Acid Calcium Ionized Calcium Total Bilirubin AST ALT Alkaline Phosphatase Lactate Dehydrogenase Total Protein Albumin Globulin Albumin/Globulin Ratio MRSA (PCR) Crossmatch See Detail See Detail 05/04/17 05/04/17 05/04/17 01:25 02:50 02:50 WBC 17.1 H RBC 2.73 L Hgb 7.9 L Hct 23.9 L MCV 87.5 MCH 28.9 MCHC 33.1 RDW 15.2 H RDW Differential 48.6 H Plt Count 221 MPV 9.2 Immature Gran % (Auto) 0.500 Neut % (Auto) 84.6 H Lymph % (Auto) 7.6 L [place] % (Auto) 7.1 Eos % (Auto) 0.1 Baso % (Auto) 0.1 Absolute Neuts (auto) 14.5 H Absolute Lymphs (auto) 1.30 Total Counted Not Reportable Neutrophils % (Manual) Band Neutrophils % Lymphocytes % (Manual) Monocytes % (Manual) Metamyelocytes % Myelocytes % Diff Path Review PT 16.1 H 18.1 H INR 1.3 1.6 APTT 28.3 31.5 Fibrinogen 484 H 313 Sodium Potassium Chloride Carbon Dioxide Anion Gap BUN Creatinine Estim Creat Clear Calc Est GFR (MDRD) Af Amer Est GFR (MDRD) Non-Af BUN/Creatinine Ratio Glucose Lactic Acid Calcium Ionized Calcium Total Bilirubin AST ALT Alkaline Phosphatase Lactate Dehydrogenase Total Protein Albumin Globulin Albumin/Globulin Ratio MRSA (PCR) Crossmatch 05/04/17 05/04/17 05/04/17 02:50 02:50 03:32 WBC 13.8 H RBC 3.07 L Hgb 9.2 L Hct 27.3 L MCV 88.9 MCH 30.0 MCHC 33.7 RDW 14.5 RDW Differential 45.2 H Plt Count 188 MPV 9.8 Immature Gran % (Auto) Neut % (Auto) Lymph % (Auto) [place] % (Auto) Eos % (Auto) Baso % (Auto) Absolute Neuts (auto) Absolute Lymphs (auto) Total Counted Neutrophils % (Manual) Band Neutrophils % Lymphocytes % (Manual) Monocytes % (Manual) Metamyelocytes % Myelocytes % Diff Path Review PT INR APTT Fibrinogen Sodium 138 Potassium 4.7 Chloride 109 H Carbon Dioxide 19.0 L Anion Gap 10 BUN 5 L Creatinine 0.44 L Estim Creat Clear Calc 143.64 Est GFR (MDRD) Af Amer 215 Est GFR (MDRD) Non-Af 178 BUN/Creatinine Ratio 11.2 Glucose 134 H Lactic Acid Calcium 6.0 L* Ionized Calcium Total Bilirubin 0.70 AST 14 L ALT 8 L Alkaline Phosphatase 66 Lactate Dehydrogenase 201 Total Protein 3.1 L Albumin 1.1 L Globulin 2.0 L Albumin/Globulin Ratio 0.6 L MRSA (PCR) Crossmatch 05/04/17 05/04/17 05/04/17 06:00 08:15 08:15 WBC RBC Hgb Hct MCV MCH MCHC RDW RDW Differential Plt Count MPV Immature Gran % (Auto) Neut % (Auto) Lymph % (Auto) [place] % (Auto) Eos % (Auto) Baso % (Auto) Absolute Neuts (auto) Absolute Lymphs (auto) Total Counted Neutrophils % (Manual) Band Neutrophils % Lymphocytes % (Manual) Monocytes % (Manual) Metamyelocytes % Myelocytes % Diff Path Review PT 16.2 H INR 1.4 APTT 30.6 Fibrinogen 376 Sodium 138 Potassium 3.7 Chloride 106 Carbon Dioxide 21.0 Anion Gap 11 BUN 5 L Creatinine 0.44 L Estim Creat Clear Calc Est GFR (MDRD) Af Amer Est GFR (MDRD) Non-Af BUN/Creatinine Ratio 11.2 Glucose 116 H Lactic Acid Calcium Ionized Calcium Total Bilirubin AST ALT Alkaline Phosphatase Lactate Dehydrogenase Total Protein Albumin Globulin Albumin/Globulin Ratio MRSA (PCR) Negative Crossmatch 05/04/17 05/04/17 05/04/17 08:15 08:15 08:20 WBC 10.7 RBC 2.51 L Hgb 7.2 L Hct 21.4 L MCV 85.3 MCH 28.7 MCHC 33.6 RDW 14.9 H RDW Differential 46.3 H Plt Count 143 L MPV 9.1 Immature Gran % (Auto) BUSINESS DEVELOPMENT PROFESSIONAL Neut % (Auto) BUSINESS DEVELOPMENT PROFESSIONAL Lymph % (Auto) BUSINESS DEVELOPMENT PROFESSIONAL [place] % (Auto) BUSINESS DEVELOPMENT PROFESSIONAL Eos % (Auto) BUSINESS DEVELOPMENT PROFESSIONAL Baso % (Auto) BUSINESS DEVELOPMENT PROFESSIONAL Absolute Neuts (auto) 7.7 Absolute Lymphs (auto) 0.75 L Total Counted 100 Neutrophils % (Manual) 62 Band Neutrophils % 10 H Lymphocytes % (Manual) 7 L Monocytes % (Manual) 9 Metamyelocytes % 6 H Myelocytes % 1 H Diff Path Review May foll PT INR APTT Fibrinogen Sodium Potassium Chloride Carbon Dioxide Anion Gap BUN Creatinine Estim Creat Clear Calc Est GFR (MDRD) Af Amer Est GFR (MDRD) Non-Af BUN/Creatinine Ratio Glucose Lactic Acid 3.8 H Calcium Ionized Calcium Pending Total Bilirubin AST ALT Alkaline Phosphatase Lactate Dehydrogenase Total Protein Albumin Globulin Albumin/Globulin Ratio MRSA (PCR) Crossmatch Clinical Impression(s) from Imaging Studies Pelvis X-Ray 05/04/17 03:40 IMPRESSION: Catheters as outlined above. No other foreign bodies noted. Electronically Signed: Gila Vargas MD at 4:41 EST , Service support , Assessment/Plan Active and Suspected Problems 40 weeks gestation of (Acute) Delivery of by section (Acute) hemorrhage (Acute) Endometritis (Acute) RECOMMENDATIONS: 1. Continue to monitor serial blood counts. Hemoglobin again fell to 7.2 g/dL this morning. Therefore, the patient will receive an additional 2 units of packed red blood cells. 2. Recheck H&H 1 hour posttransfusion completion. 3. Continue antibiotics per OB 4. Clear liquid diet per OB. No need for supplemental IV fluids for now. 5. Oxycodone for pain 6. Wean supplemental oxygen to maintain saturations at or above 90%. 7. Encourage incentive spirometer use IMPRESSIONS: 1. Acute blood loss anemia secondary to hemorrhage Continue to monitor blood counts regularly. Will transfuse 2 units of additional packed red blood cells, given that the patient's hemoglobin was noted be 7.2 g/dL this morning. Check H&H 1 hour post transfusion. 2. Thrombocytopenia Likely consumptive in nature secondary to hemorrhage. No indication for transfusion at this time. We will continue to monitor. 3. Lactic acidemia Secondary to #1. Plan to repeat serum lactate level in 6 hours. Continue supplemental IV fluids and blood product administration in order to maintain hemodynamic stability. This note was generated with [employer] software. It may contain incorrect words, spelling, and punctuation that were not noted in checking the note before signing. Code Visit Inpatient E&M: 34754 Init Hosp L3
--- NOTE | 2017-05-04 10:01 | CASEMGMT ---
Social Work SW met with pt and in room and introduced self and role of SW. Pt admitted to ICU after and need for second surgery. Spoke with both pt and about events of the night and their feelings surrounding the of their child and the unexpected surgery. Emotional support provided to pt and as they review feelings of the situation. Discussed support system and they state that both mothers and some sisters are currently at the hospital with the baby and they are comfortable with this situation and that family is a good support to them. Pt plans to be home with pt after discharge and assist as needed. Pt mother in law also plans to assist as needed. Pt states she does have a physician lined up for the baby and car seat and needed supplies for baby are in place. Although tired, pt affect is appropriate and pt willing to verbalize feelings. Pt is at bedside providing support. Discussed with pt and self pay status. Pt states costs of self pay for vaginal delivery was similar or more cost effective than purchasing insurance and [facility] package plan has been paid for. Pt expressing concerns over payment as vaginal delivery was changed to a c section and there are now addition and unexpected medical issues. CHIKIS placed phone call to Rosina in [employer] and informed of pt concerns. Rosina will look into situation and will meet with pt and to discussed financial concerns. CHIKIS reentered pt room to inform pt and spouse that Rosina from [employer] would be meeting with them to discuss financial concerns. Pt states that Rosina had just left and that pt feels like a big weight has been lifted after talking with [facility]. Pt and deny any further needs. SW will remain available should needs arise. FABRICIO Glover
--- NOTE | 2017-05-04 10:06 | NURSING ---
Balloon Tamponade continues to be intact and draining small amount of red drainage .
--- NOTE | 2017-05-04 10:45 | NURSING ---
Bakri balloon in place and intact and secure to leg
[2017-05-04 12:30] LABS: Reflex Lactate? Y
[2017-05-04] MEDS: Lactated Ringers 1,000 ML 100 ML IV ×2 (12:39→23:39)
[2017-05-04 13:19] LABS: Lactic Acid 3.2 mmol/L (0.4-2.0)
[2017-05-04 15:46] LABS: Hematocrit 26.1 % (37-47)
[2017-05-04 16:36] LABS: Reflex Lactate? Y
--- NOTE | 2017-05-04 17:17 | NURSING ---
vaginal packing removed at this time per Dr. Yañez
--- NOTE | 2017-05-04 17:46 | PN.OBGYN_ITS ---
Patient Problems: Active and Suspected Problems 40 weeks gestation of (Acute) Delivery of by section (Acute) hemorrhage (Acute) Endometritis (Acute) Subjective: Pain controlled, not yet out of bed. She tolerates a clear liquid diet without nausea or vomiting. No flatus yet. Denies chest pain, shortness of breath, lightheadedness or dizziness. She pumped and colostrum was retrieved earlier today. She asks about removal of her vaginal packing. Objective: Afebrile, tachycardia to 120s - Physical Exam General: Alert, Oriented x3, Cooperative, No apparent distress HEENT: Atraumatic, Normocephalic Abdomen: Soft, Non Tender, Non-Distended, - - Mild fundal tenderness, incision with dressing c/d/i, LISET with scant serosanguinous drainage <5cc, Franco with jreicho urine and Bakri bag with 300cc unchanged from this morning Extremities: No Calf Tenderness, - - +1 b/l LE edema Neurological: Neuro grossly intact Psych/Mental Status: Normal Affect, Appropriate, Alert and oriented to time, place, person, mood and affect Vital Signs Temp Pulse Resp BP Pulse Ox 97.7 F L 117 H 16 110/67 95 05/04/17 16:00 05/04/17 17:00 05/04/17 17:00 05/04/17 17:00 05/04/17 17:00 Oxygen Flow Rate 2 Oxygen Delivery Method Room Air Weight: 103 kg Body Mass Index (BMI) 44.3 Intake and Output for Last 24 Hours 05/02/17 05/03/17 05/04/17 23:59 23:59 23:59 Intake Total 5320 / 5320 6656.6 / 6656.6 Output Total 2550 / 2550 6520 / 6520 Balance 2770 / 2770 136.6 / 136.6 Laboratory Tests Past 24 Hrs 05/03/17 05/03/17 05/04/17 03:45 03:45 01:25 WBC 20.0 H RBC 2.73 L Hgb 8.2 L Hct 24.8 L MCV 90.8 MCH 30.0 MCHC 33.1 RDW 14.6 RDW Differential 46.4 H Plt Count 285 MPV 9.9 Immature Gran % (Auto) Neut % (Auto) Lymph % (Auto) [place] % (Auto) Eos % (Auto) Baso % (Auto) Absolute Neuts (auto) Absolute Lymphs (auto) Total Counted Neutrophils % (Manual) Band Neutrophils % Lymphocytes % (Manual) Monocytes % (Manual) Metamyelocytes % Myelocytes % Diff Path Review PT INR APTT Fibrinogen Sodium Potassium Chloride Carbon Dioxide Anion Gap BUN Creatinine Estim Creat Clear Calc Est GFR (MDRD) Af Amer Est GFR (MDRD) Non-Af BUN/Creatinine Ratio Glucose Lactic Acid Calcium Ionized Calcium Total Bilirubin AST ALT Alkaline Phosphatase Lactate Dehydrogenase Total Protein Albumin Globulin Albumin/Globulin Ratio MRSA (PCR) Screen Baby's Blood Type Baby's SIRENA Crossmatch See Detail See Detail 05/04/17 05/04/17 05/04/17 01:25 02:50 02:50 WBC 17.1 H RBC 2.73 L Hgb 7.9 L Hct 23.9 L MCV 87.5 MCH 28.9 MCHC 33.1 RDW 15.2 H RDW Differential 48.6 H Plt Count 221 MPV 9.2 Immature Gran % (Auto) 0.500 Neut % (Auto) 84.6 H Lymph % (Auto) 7.6 L [place] % (Auto) 7.1 Eos % (Auto) 0.1 Baso % (Auto) 0.1 Absolute Neuts (auto) 14.5 H Absolute Lymphs (auto) 1.30 Total Counted Not Reportable Neutrophils % (Manual) Band Neutrophils % Lymphocytes % (Manual) Monocytes % (Manual) Metamyelocytes % Myelocytes % Diff Path Review PT 16.1 H 18.1 H INR 1.3 1.6 APTT 28.3 31.5 Fibrinogen 484 H 313 Sodium Potassium Chloride Carbon Dioxide Anion Gap BUN Creatinine Estim Creat Clear Calc Est GFR (MDRD) Af Amer Est GFR (MDRD) Non-Af BUN/Creatinine Ratio Glucose Lactic Acid Calcium Ionized Calcium Total Bilirubin AST ALT Alkaline Phosphatase Lactate Dehydrogenase Total Protein Albumin Globulin Albumin/Globulin Ratio MRSA (PCR) Screen Baby's Blood Type Baby's SIRENA Crossmatch 05/04/17 05/04/17 05/04/17 02:50 02:50 03:32 WBC 13.8 H RBC 3.07 L Hgb 9.2 L Hct 27.3 L MCV 88.9 MCH 30.0 MCHC 33.7 RDW 14.5 RDW Differential 45.2 H Plt Count 188 MPV 9.8 Immature Gran % (Auto) Neut % (Auto) Lymph % (Auto) [place] % (Auto) Eos % (Auto) Baso % (Auto) Absolute Neuts (auto) Absolute Lymphs (auto) Total Counted Neutrophils % (Manual) Band Neutrophils % Lymphocytes % (Manual) Monocytes % (Manual) Metamyelocytes % Myelocytes % Diff Path Review PT INR APTT Fibrinogen Sodium 138 Potassium 4.7 Chloride 109 H Carbon Dioxide 19.0 L Anion Gap 10 BUN 5 L Creatinine 0.44 L Estim Creat Clear Calc 143.64 Est GFR (MDRD) Af Amer 215 Est GFR (MDRD) Non-Af 178 BUN/Creatinine Ratio 11.2 Glucose 134 H Lactic Acid Calcium 6.0 L* Ionized Calcium Total Bilirubin 0.70 AST 14 L ALT 8 L Alkaline Phosphatase 66 Lactate Dehydrogenase 201 Total Protein 3.1 L Albumin 1.1 L Globulin 2.0 L Albumin/Globulin Ratio 0.6 L MRSA (PCR) Screen Baby's Blood Type Baby's SIRENA Crossmatch 05/04/17 05/04/17 05/04/17 06:00 08:15 08:15 WBC RBC Hgb Hct MCV MCH MCHC RDW RDW Differential Plt Count MPV Immature Gran % (Auto) Neut % (Auto) Lymph % (Auto) [place] % (Auto) Eos % (Auto) Baso % (Auto) Absolute Neuts (auto) Absolute Lymphs (auto) Total Counted Neutrophils % (Manual) Band Neutrophils % Lymphocytes % (Manual) Monocytes % (Manual) Metamyelocytes % Myelocytes % Diff Path Review PT 16.2 H INR 1.4 APTT 30.6 Fibrinogen 376 Sodium 138 Potassium 3.7 Chloride 106 Carbon Dioxide 21.0 Anion Gap 11 BUN 5 L Creatinine 0.44 L Estim Creat Clear Calc Est GFR (MDRD) Af Amer Est GFR (MDRD) Non-Af BUN/Creatinine Ratio 11.2 Glucose 116 H Lactic Acid Calcium Ionized Calcium Total Bilirubin AST ALT Alkaline Phosphatase Lactate Dehydrogenase Total Protein Albumin Globulin Albumin/Globulin Ratio MRSA (PCR) Negative Screen Baby's Blood Type Baby's SIRENA Crossmatch 05/04/17 05/04/17 05/04/17 08:15 08:15 08:20 WBC 10.7 RBC 2.51 L Hgb 7.2 L Hct 21.4 L MCV 85.3 MCH 28.7 MCHC 33.6 RDW 14.9 H RDW Differential 46.3 H Plt Count 143 L MPV 9.1 Immature Gran % (Auto) [employer] SEAT [employer] INSTALLER Neut % (Auto) AUT[employer] SEAT COVER INSTALLER Lymph % (Auto) AUT[employer] SEAT COVER INSTALLER [place] % (Auto) AUT[employer] SEAT COVER INSTALLER Eos % (Auto) AUT[employer] SEAT COVER INSTALLER Baso % (Auto) [employer] SE[employer] INSTALLER Absolute Neuts (auto) 7.7 Absolute Lymphs (auto) 0.75 L Total Counted 100 Neutrophils % (Manual) 62 Band Neutrophils % 10 H Lymphocytes % (Manual) 7 L Monocytes % (Manual) 9 Metamyelocytes % 6 H Myelocytes % 1 H Diff Path Review May foll PT INR APTT Fibrinogen Sodium Potassium Chloride Carbon Dioxide Anion Gap BUN Creatinine Estim Creat Clear Calc Est GFR (MDRD) Af Amer Est GFR (MDRD) Non-Af BUN/Creatinine Ratio Glucose Lactic Acid 3.8 H Calcium Ionized Calcium Pending Total Bilirubin AST ALT Alkaline Phosphatase Lactate Dehydrogenase Total Protein Albumin Globulin Albumin/Globulin Ratio MRSA (PCR) Screen Baby's Blood Type Baby's SIRENA Crossmatch 05/04/17 05/04/17 05/04/17 10:05 12:15 15:30 WBC RBC Hgb 9.0 L Hct 26.1 L MCV MCH MCHC RDW RDW Differential Plt Count MPV Immature Gran % (Auto) Neut % (Auto) Lymph % (Auto) [place] % (Auto) Eos % (Auto) Baso % (Auto) Absolute Neuts (auto) Absolute Lymphs (auto) Total Counted Neutrophils % (Manual) Band Neutrophils % Lymphocytes % (Manual) Monocytes % (Manual) Metamyelocytes % Myelocytes % Diff Path Review PT INR APTT Fibrinogen Sodium Potassium Chloride Carbon Dioxide Anion Gap BUN Creatinine Estim Creat Clear Calc Est GFR (MDRD) Af Amer Est GFR (MDRD) Non-Af BUN/Creatinine Ratio Glucose Lactic Acid 3.2 H Calcium Ionized Calcium Total Bilirubin AST ALT Alkaline Phosphatase Lactate Dehydrogenase Total Protein Albumin Globulin Albumin/Globulin Ratio MRSA (PCR) Screen NEGATIVE Baby's Blood Type PRESUMED RH POS Baby's SIRENA Crossmatch Assessment/Plan Active and Suspected Problems 40 weeks gestation of (Acute) Delivery of by section (Acute) hemorrhage (Acute) Endometritis (Acute) 26yo day of surgery s/p PLTCS complicated by hemorrhage s/p EUA, dilation and curettage with acute post-operative anemia. -Reviewed course of events following delivery -PPH presumably 2/2 chorioamnionitis/endometritis. wbc improved with IV antibiotics. Will continue Gent/Clind/Ancef x 48 hours. -6u prbc, 4u ffp administered with improvement of vitals and urine output. H/H improved. Tachycardia remains. Following discussion, patient notes that her mother reminded her that she has a baseline elevated heart rate discovered at age 15, but does not recall a specific diagnosis -- possible that current tachycardia to 110s-120s is her baseline. She also had heart rate at this range on admission and throughout her labor. Will plan to observe H/H overnight and if remains stable transfer to . -Vaginal packing removed, peripad reviewed after approximately 10 minutes and it remained dry. Bakri remains in situ. -/pumping -OOB to chair -Advance to regular diet
--- NOTE | 2017-05-04 17:48 | PN.OBGYN_ITS ---
Subjective: Pain is minimal. Nelli requests I inform her to bring her breast pump from the car. She is hungry and relates her throat is sore and her mouth is dry. Denies lightheadedness, chest pain or shortness of breath. She is tired. - Physical Exam General: Oriented x3, Cooperative, No apparent distress HEENT: Atraumatic, Normocephalic Lungs: Normal air movement Cardiovascular: Tachycardic Abdomen: Soft, Non Tender, Non-Distended, - - Dressing c/d/i, fundus firm and mildly tender, lochia scant - vaginal packing in situ, Bakri balloon with 300cc in bag Extremities: No Calf Tenderness, - - trace LE edema Neurological: Neuro grossly intact Psych/Mental Status: Normal Affect, Appropriate, Alert and oriented to time, place, person, mood and affect Vital Signs Temp Pulse Resp BP Pulse Ox 97.7 F L 117 H 16 110/67 95 05/04/17 16:00 05/04/17 17:00 05/04/17 17:00 05/04/17 17:00 05/04/17 17:00 Oxygen Flow Rate 2 Oxygen Delivery Method Room Air Weight: 103 kg Body Mass Index (BMI) 44.3 Intake and Output for Last 24 Hours 05/02/17 05/03/17 05/04/17 23:59 23:59 23:59 Intake Total 5320 / 5320 6656.6 / 6656.6 Output Total 2550 / 2550 6520 / 6520 Balance 2770 / 2770 136.6 / 136.6 Laboratory Tests Past 24 Hrs 05/03/17 05/03/17 05/04/17 03:45 03:45 01:25 WBC 20.0 H RBC 2.73 L Hgb 8.2 L Hct 24.8 L MCV 90.8 MCH 30.0 MCHC 33.1 RDW 14.6 RDW Differential 46.4 H Plt Count 285 MPV 9.9 Immature Gran % (Auto) Neut % (Auto) Lymph % (Auto) [place] % (Auto) Eos % (Auto) Baso % (Auto) Absolute Neuts (auto) Absolute Lymphs (auto) Total Counted Neutrophils % (Manual) Band Neutrophils % Lymphocytes % (Manual) Monocytes % (Manual) Metamyelocytes % Myelocytes % Diff Path Review PT INR APTT Fibrinogen Sodium Potassium Chloride Carbon Dioxide Anion Gap BUN Creatinine Estim Creat Clear Calc Est GFR (MDRD) Af Amer Est GFR (MDRD) Non-Af BUN/Creatinine Ratio Glucose Lactic Acid Calcium Ionized Calcium Total Bilirubin AST ALT Alkaline Phosphatase Lactate Dehydrogenase Total Protein Albumin Globulin Albumin/Globulin Ratio MRSA (PCR) Screen Baby's Blood Type Baby's SIRENA Crossmatch See Detail See Detail 05/04/17 05/04/17 05/04/17 01:25 02:50 02:50 WBC 17.1 H RBC 2.73 L Hgb 7.9 L Hct 23.9 L MCV 87.5 MCH 28.9 MCHC 33.1 RDW 15.2 H RDW Differential 48.6 H Plt Count 221 MPV 9.2 Immature Gran % (Auto) 0.500 Neut % (Auto) 84.6 H Lymph % (Auto) 7.6 L [place] % (Auto) 7.1 Eos % (Auto) 0.1 Baso % (Auto) 0.1 Absolute Neuts (auto) 14.5 H Absolute Lymphs (auto) 1.30 Total Counted Not Reportable Neutrophils % (Manual) Band Neutrophils % Lymphocytes % (Manual) Monocytes % (Manual) Metamyelocytes % Myelocytes % Diff Path Review PT 16.1 H 18.1 H INR 1.3 1.6 APTT 28.3 31.5 Fibrinogen 484 H 313 Sodium Potassium Chloride Carbon Dioxide Anion Gap BUN Creatinine Estim Creat Clear Calc Est GFR (MDRD) Af Amer Est GFR (MDRD) Non-Af BUN/Creatinine Ratio Glucose Lactic Acid Calcium Ionized Calcium Total Bilirubin AST ALT Alkaline Phosphatase Lactate Dehydrogenase Total Protein Albumin Globulin Albumin/Globulin Ratio MRSA (PCR) Screen Baby's Blood Type Baby's SIRENA Crossmatch 05/04/17 05/04/17 05/04/17 02:50 02:50 03:32 WBC 13.8 H RBC 3.07 L Hgb 9.2 L Hct 27.3 L MCV 88.9 MCH 30.0 MCHC 33.7 RDW 14.5 RDW Differential 45.2 H Plt Count 188 MPV 9.8 Immature Gran % (Auto) Neut % (Auto) Lymph % (Auto) [place] % (Auto) Eos % (Auto) Baso % (Auto) Absolute Neuts (auto) Absolute Lymphs (auto) Total Counted Neutrophils % (Manual) Band Neutrophils % Lymphocytes % (Manual) Monocytes % (Manual) Metamyelocytes % Myelocytes % Diff Path Review PT INR APTT Fibrinogen Sodium 138 Potassium 4.7 Chloride 109 H Carbon Dioxide 19.0 L Anion Gap 10 BUN 5 L Creatinine 0.44 L Estim Creat Clear Calc 143.64 Est GFR (MDRD) Af Amer 215 Est GFR (MDRD) Non-Af 178 BUN/Creatinine Ratio 11.2 Glucose 134 H Lactic Acid Calcium 6.0 L* Ionized Calcium Total Bilirubin 0.70 AST 14 L ALT 8 L Alkaline Phosphatase 66 Lactate Dehydrogenase 201 Total Protein 3.1 L Albumin 1.1 L Globulin 2.0 L Albumin/Globulin Ratio 0.6 L MRSA (PCR) Screen Baby's Blood Type Baby's SIRENA Crossmatch 05/04/17 05/04/17 05/04/17 06:00 08:15 08:15 WBC RBC Hgb Hct MCV MCH MCHC RDW RDW Differential Plt Count MPV Immature Gran % (Auto) Neut % (Auto) Lymph % (Auto) [place] % (Auto) Eos % (Auto) Baso % (Auto) Absolute Neuts (auto) Absolute Lymphs (auto) Total Counted Neutrophils % (Manual) Band Neutrophils % Lymphocytes % (Manual) Monocytes % (Manual) Metamyelocytes % Myelocytes % Diff Path Review PT 16.2 H INR 1.4 APTT 30.6 Fibrinogen 376 Sodium 138 Potassium 3.7 Chloride 106 Carbon Dioxide 21.0 Anion Gap 11 BUN 5 L Creatinine 0.44 L Estim Creat Clear Calc Est GFR (MDRD) Af Amer Est GFR (MDRD) Non-Af BUN/Creatinine Ratio 11.2 Glucose 116 H Lactic Acid Calcium Ionized Calcium Total Bilirubin AST ALT Alkaline Phosphatase Lactate Dehydrogenase Total Protein Albumin Globulin Albumin/Globulin Ratio MRSA (PCR) Negative Screen Baby's Blood Type Baby's SIRENA Crossmatch 05/04/17 05/04/17 05/04/17 08:15 08:15 08:20 WBC 10.7 RBC 2.51 L Hgb 7.2 L Hct 21.4 L MCV 85.3 MCH 28.7 MCHC 33.6 RDW 14.9 H RDW Differential 46.3 H Plt Count 143 L MPV 9.1 Immature Gran % (Auto) [employer] SERVICES COORDINATOR Neut % (Auto) ACADEMIC SERVICES COORDINATOR Lymph % (Auto) ACADEMIC SERVICES COORDINATOR [place] % (Auto) ACADEMIC SERVICES COORDINATOR Eos % (Auto) ACADEMIC SERVICES COORDINATOR Baso % (Auto) ACADEMIC SERVICES COORDINATOR Absolute Neuts (auto) 7.7 Absolute Lymphs (auto) 0.75 L Total Counted 100 Neutrophils % (Manual) 62 Band Neutrophils % 10 H Lymphocytes % (Manual) 7 L Monocytes % (Manual) 9 Metamyelocytes % 6 H Myelocytes % 1 H Diff Path Review May foll PT INR APTT Fibrinogen Sodium Potassium Chloride Carbon Dioxide Anion Gap BUN Creatinine Estim Creat Clear Calc Est GFR (MDRD) Af Amer Est GFR (MDRD) Non-Af BUN/Creatinine Ratio Glucose Lactic Acid 3.8 H Calcium Ionized Calcium Pending Total Bilirubin AST ALT Alkaline Phosphatase Lactate Dehydrogenase Total Protein Albumin Globulin Albumin/Globulin Ratio MRSA (PCR) Screen Baby's Blood Type Baby's SIRENA Crossmatch 05/04/17 05/04/17 05/04/17 10:05 12:15 15:30 WBC RBC Hgb 9.0 L Hct 26.1 L MCV MCH MCHC RDW RDW Differential Plt Count MPV Immature Gran % (Auto) Neut % (Auto) Lymph % (Auto) [place] % (Auto) Eos % (Auto) Baso % (Auto) Absolute Neuts (auto) Absolute Lymphs (auto) Total Counted Neutrophils % (Manual) Band Neutrophils % Lymphocytes % (Manual) Monocytes % (Manual) Metamyelocytes % Myelocytes % Diff Path Review PT INR APTT Fibrinogen Sodium Potassium Chloride Carbon Dioxide Anion Gap BUN Creatinine Estim Creat Clear Calc Est GFR (MDRD) Af Amer Est GFR (MDRD) Non-Af BUN/Creatinine Ratio Glucose Lactic Acid 3.2 H Calcium Ionized Calcium Total Bilirubin AST ALT Alkaline Phosphatase Lactate Dehydrogenase Total Protein Albumin Globulin Albumin/Globulin Ratio MRSA (PCR) Screen NEGATIVE Baby's Blood Type PRESUMED RH POS Baby's SIRENA Crossmatch 05/04/17 17:30 WBC RBC Hgb Hct MCV MCH MCHC RDW RDW Differential Plt Count MPV Immature Gran % (Auto) Neut % (Auto) Lymph % (Auto) [place] % (Auto) Eos % (Auto) Baso % (Auto) Absolute Neuts (auto) Absolute Lymphs (auto) Total Counted Neutrophils % (Manual) Band Neutrophils % Lymphocytes % (Manual) Monocytes % (Manual) Metamyelocytes % Myelocytes % Diff Path Review PT INR APTT Fibrinogen Sodium Potassium Chloride Carbon Dioxide Anion Gap BUN Creatinine Estim Creat Clear Calc Est GFR (MDRD) Af Amer Est GFR (MDRD) Non-Af BUN/Creatinine Ratio Glucose Lactic Acid Pending Calcium Ionized Calcium Total Bilirubin AST ALT Alkaline Phosphatase Lactate Dehydrogenase Total Protein Albumin Globulin Albumin/Globulin Ratio MRSA (PCR) Screen Baby's Blood Type Baby's SIRENA Crossmatch Assessment/Plan 26yo day of surgery s/p PLTCS complicated by hemorrhage s/p EUA, dilation and curettage, ex lap with acute post-operative anemia. -Continue Gent/Clind/Ancef x 48 hours. -Tachycardia remains, s/p 4u prbc, 4th unit ffp hanging now. Will defer fluid management to critical care team. -Vaginal packing, Bakri balloon in situ, will maintain -Desires to breastfeed, consultation requested -Sips and chips
[2017-05-04 18:09] LABS: Lactic Acid 1.7 mmol/L (0.4-2.0)
--- NOTE | 2017-05-04 19:02 | NURSING ---
Bakri balloon intact and secure to leg.
[2017-05-04] MEDS: 0.9% Saline Lock 10 ML Syringe IV ×2 (21:23→21:30)
[2017-05-04 21:57] LABS: Hematocrit 24.6 % (37-47); Hemoglobin 8.6 g/dl (12.0-15.0)
[2017-05-05] VITALS (20 sets, daily range): BP systolic 104–124; BP diastolic 57–79; PULSE 108–129; RESP 16–25; TEMP 36.6–37.3; O2SAT 92–95
[2017-05-05 03:53] LABS: Hematocrit 23.2 % (37-47); Hemoglobin 7.9 g/dl (12.0-15.0)
--- NOTE | 2017-05-05 05:17 | PN_ITS ---
Subjective: The patient was seen and examined at the bedside this morning. Events from the last 24 hours have been reviewed. The patient is currently afebrile and hemodynamically stable. She remains tachycardic with a 2 L/min supplemental oxygen requirement. The patient was transfused an additional 2 units of packed red blood cells yesterday afternoon, as her hemoglobin was noted to be 7.2 g/ dL. Following said transfusion, her hemoglobin increased to 9.0 g/dL. However , over the course of the evening/night, her hemoglobin has again fallen 1 g. Although the patient's initial lactate was noted to be elevated at 3.8. Over the course of yesterday, her lactic acidemia normalized. The patient did tolerate a diet last evening. She reports that her pain is currently under control. Objective: The patient's most recent lab work, culture data and imaging studies have all been personally reviewed. General: Alert, Oriented x3, Cooperative, No apparent distress HEENT: Atraumatic, PERRLA, Normocephalic Oral: Moist Mucosa, No Gingival or Mucosal Lesions/ Ulcerations Neck: Supple, No Nodes, Trachea Midline Lungs: Normal air movement, No rhonchi, No wheeze, No rales Cardiovascular: Normal S1, Normal S2, No murmurs, Tachycardic Abdomen: Bowel Sounds Present, Soft, Tender, - - LISET and Bakri Balloon in place Extremities: No clubbing, No cyanosis, Edema, Peripheral Pulses Normal Skin: Incision - Intact Musculoskeletal: No Tenderness to Palpation of Joints or Extremities Lymphatic: No Cervical, Supraclavicular, or Inguinal Adenopathy Neurological: Neuro grossly intact Psych/Mental Status: Alert and oriented to time, place, person, mood and affect Vital Signs Temp Pulse Resp BP Pulse Ox 98.9 F 108 H 21 H 110/66 95 05/05/17 00:00 05/05/17 05:00 05/05/17 05:00 05/05/17 05:00 05/05/17 05:00 Oxygen Flow Rate 2 Oxygen Delivery Method Room Air Weight: 227 lb 1.218 oz Body Mass Index (BMI) 44.3 Intake and Output for Last 24 Hours 05/03/17 05/04/17 05/05/17 23:59 23:59 23:59 Intake Total 5320 / 5320 6656.6 / 6656.6 736 / 736 Output Total 2550 / 2550 6520 / 6520 1440 / 1440 Balance 2770 / 2770 136.6 / 136.6 -704 / -704 Labs (Last 48 Hours) 05/03/17 05/03/17 05/03/17 03:45 03:45 03:45 WBC RBC Hgb Hct MCV MCH MCHC RDW RDW Differential Plt Count MPV Immature Gran % (Auto) Neut % (Auto) Lymph % (Auto) [place] % (Auto) Eos % (Auto) Baso % (Auto) Absolute Neuts (auto) Absolute Lymphs (auto) Total Counted Neutrophils % (Manual) Band Neutrophils % Lymphocytes % (Manual) Monocytes % (Manual) Metamyelocytes % Myelocytes % Diff Path Review PT INR APTT Fibrinogen Sodium Potassium Chloride Carbon Dioxide Anion Gap BUN Creatinine Estim Creat Clear Calc Est GFR (MDRD) Af Amer Est GFR (MDRD) Non-Af BUN/Creatinine Ratio Glucose Lactic Acid Calcium Ionized Calcium Total Bilirubin AST ALT Alkaline Phosphatase Lactate Dehydrogenase Total Protein Albumin Globulin Albumin/Globulin Ratio MRSA (PCR) Blood Type A NEGATIVE Antibody Screen NEGATIVE Screen Baby's Blood Type Baby's SIRENA Crossmatch See Detail See Detail 05/04/17 05/04/17 05/04/17 01:25 01:25 02:50 WBC 20.0 H 17.1 H RBC 2.73 L 2.73 L Hgb 8.2 L 7.9 L Hct 24.8 L 23.9 L MCV 90.8 87.5 MCH 30.0 28.9 MCHC 33.1 33.1 RDW 14.6 15.2 H RDW Differential 46.4 H 48.6 H Plt Count 285 221 MPV 9.9 9.2 Immature Gran % (Auto) 0.500 Neut % (Auto) 84.6 H Lymph % (Auto) 7.6 L [place] % (Auto) 7.1 Eos % (Auto) 0.1 Baso % (Auto) 0.1 Absolute Neuts (auto) 14.5 H Absolute Lymphs (auto) 1.30 Total Counted Not Reportable Neutrophils % (Manual) Band Neutrophils % Lymphocytes % (Manual) Monocytes % (Manual) Metamyelocytes % Myelocytes % Diff Path Review PT 16.1 H INR 1.3 APTT 28.3 Fibrinogen 484 H Sodium Potassium Chloride Carbon Dioxide Anion Gap BUN Creatinine Estim Creat Clear Calc Est GFR (MDRD) Af Amer Est GFR (MDRD) Non-Af BUN/Creatinine Ratio Glucose Lactic Acid Calcium Ionized Calcium Total Bilirubin AST ALT Alkaline Phosphatase Lactate Dehydrogenase Total Protein Albumin Globulin Albumin/Globulin Ratio MRSA (PCR) Blood Type Antibody Screen Screen Baby's Blood Type Baby's SIRENA Crossmatch 05/04/17 05/04/17 05/04/17 02:50 02:50 02:50 WBC RBC Hgb Hct MCV MCH MCHC RDW RDW Differential Plt Count MPV Immature Gran % (Auto) Neut % (Auto) Lymph % (Auto) [place] % (Auto) Eos % (Auto) Baso % (Auto) Absolute Neuts (auto) Absolute Lymphs (auto) Total Counted Neutrophils % (Manual) Band Neutrophils % Lymphocytes % (Manual) Monocytes % (Manual) Metamyelocytes % Myelocytes % Diff Path Review PT 18.1 H INR 1.6 APTT 31.5 Fibrinogen 313 Sodium 138 Potassium 4.7 Chloride 109 H Carbon Dioxide 19.0 L Anion Gap 10 BUN 5 L Creatinine 0.44 L Estim Creat Clear Calc 143.64 Est GFR (MDRD) Af Amer 215 Est GFR (MDRD) Non-Af 178 BUN/Creatinine Ratio 11.2 Glucose 134 H Lactic Acid Calcium 6.0 L* Ionized Calcium Total Bilirubin 0.70 AST 14 L ALT 8 L Alkaline Phosphatase 66 Lactate Dehydrogenase 201 Total Protein 3.1 L Albumin 1.1 L Globulin 2.0 L Albumin/Globulin Ratio 0.6 L MRSA (PCR) Blood Type Antibody Screen Screen Baby's Blood Type Baby's SIRENA Crossmatch 05/04/17 05/04/17 05/04/17 03:32 06:00 08:15 WBC 13.8 H RBC 3.07 L Hgb 9.2 L Hct 27.3 L MCV 88.9 MCH 30.0 MCHC 33.7 RDW 14.5 RDW Differential 45.2 H Plt Count 188 MPV 9.8 Immature Gran % (Auto) Neut % (Auto) Lymph % (Auto) [place] % (Auto) Eos % (Auto) Baso % (Auto) Absolute Neuts (auto) Absolute Lymphs (auto) Total Counted Neutrophils % (Manual) Band Neutrophils % Lymphocytes % (Manual) Monocytes % (Manual) Metamyelocytes % Myelocytes % Diff Path Review PT 16.2 H INR 1.4 APTT 30.6 Fibrinogen 376 Sodium Potassium Chloride Carbon Dioxide Anion Gap BUN Creatinine Estim Creat Clear Calc Est GFR (MDRD) Af Amer Est GFR (MDRD) Non-Af BUN/Creatinine Ratio Glucose Lactic Acid Calcium Ionized Calcium Total Bilirubin AST ALT Alkaline Phosphatase Lactate Dehydrogenase Total Protein Albumin Globulin Albumin/Globulin Ratio MRSA (PCR) Negative Blood Type Antibody Screen Screen Baby's Blood Type Baby's SIRENA Crossmatch 05/04/17 05/04/17 05/04/17 08:15 08:15 08:15 WBC 10.7 RBC 2.51 L Hgb 7.2 L Hct 21.4 L MCV 85.3 MCH 28.7 MCHC 33.6 RDW 14.9 H RDW Differential 46.3 H Plt Count 143 L MPV 9.1 Immature Gran % (Auto) [employer] Neut % (Auto) [employer]IVE Lymph % (Auto) [employer]PRESENT[employer]IVE [place] % (Auto) [employer]IVE Eos % (Auto) [employer]PRES[employer]IVE Baso % (Auto) [employer]PRES[employer]IVE Absolute Neuts (auto) 7.7 Absolute Lymphs (auto) 0.75 L Total Counted 100 Neutrophils % (Manual) 62 Band Neutrophils % 10 H Lymphocytes % (Manual) 7 L Monocytes % (Manual) 9 Metamyelocytes % 6 H Myelocytes % 1 H Diff Path Review May foll PT INR APTT Fibrinogen Sodium 138 Potassium 3.7 Chloride 106 Carbon Dioxide 21.0 Anion Gap 11 BUN 5 L Creatinine 0.44 L Estim Creat Clear Calc Est GFR (MDRD) Af Amer Est GFR (MDRD) Non-Af BUN/Creatinine Ratio 11.2 Glucose 116 H Lactic Acid Calcium Ionized Calcium Pending Total Bilirubin AST ALT Alkaline Phosphatase Lactate Dehydrogenase Total Protein Albumin Globulin Albumin/Globulin Ratio MRSA (PCR) Blood Type Antibody Screen Screen Baby's Blood Type Baby's SIRENA Crossmatch 05/04/17 05/04/17 05/04/17 08:20 10:05 12:15 WBC RBC Hgb Hct MCV MCH MCHC RDW RDW Differential Plt Count MPV Immature Gran % (Auto) Neut % (Auto) Lymph % (Auto) [place] % (Auto) Eos % (Auto) Baso % (Auto) Absolute Neuts (auto) Absolute Lymphs (auto) Total Counted Neutrophils % (Manual) Band Neutrophils % Lymphocytes % (Manual) Monocytes % (Manual) Metamyelocytes % Myelocytes % Diff Path Review PT INR APTT Fibrinogen Sodium Potassium Chloride Carbon Dioxide Anion Gap BUN Creatinine Estim Creat Clear Calc Est GFR (MDRD) Af Amer Est GFR (MDRD) Non-Af BUN/Creatinine Ratio Glucose Lactic Acid 3.8 H 3.2 H Calcium Ionized Calcium Total Bilirubin AST ALT Alkaline Phosphatase Lactate Dehydrogenase Total Protein Albumin Globulin Albumin/Globulin Ratio MRSA (PCR) Blood Type Antibody Screen Screen NEGATIVE Baby's Blood Type PRESUMED RH POS Baby's SIRENA Crossmatch 05/04/17 05/04/17 05/04/17 15:30 17:30 21:35 WBC RBC Hgb 9.0 L 8.6 L Hct 26.1 L 24.6 L MCV MCH MCHC RDW RDW Differential Plt Count MPV Immature Gran % (Auto) Neut % (Auto) Lymph % (Auto) [place] % (Auto) Eos % (Auto) Baso % (Auto) Absolute Neuts (auto) Absolute Lymphs (auto) Total Counted Neutrophils % (Manual) Band Neutrophils % Lymphocytes % (Manual) Monocytes % (Manual) Metamyelocytes % Myelocytes % Diff Path Review PT INR APTT Fibrinogen Sodium Potassium Chloride Carbon Dioxide Anion Gap BUN Creatinine Estim Creat Clear Calc Est GFR (MDRD) Af Amer Est GFR (MDRD) Non-Af BUN/Creatinine Ratio Glucose Lactic Acid 1.7 Calcium Ionized Calcium Total Bilirubin AST ALT Alkaline Phosphatase Lactate Dehydrogenase Total Protein Albumin Globulin Albumin/Globulin Ratio MRSA (PCR) Blood Type Antibody Screen Screen Baby's Blood Type Baby's SIRENA Crossmatch 05/05/17 03:40 WBC RBC Hgb 7.9 L Hct 23.2 L MCV MCH MCHC RDW RDW Differential Plt Count MPV Immature Gran % (Auto) Neut % (Auto) Lymph % (Auto) [place] % (Auto) Eos % (Auto) Baso % (Auto) Absolute Neuts (auto) Absolute Lymphs (auto) Total Counted Neutrophils % (Manual) Band Neutrophils % Lymphocytes % (Manual) Monocytes % (Manual) Metamyelocytes % Myelocytes % Diff Path Review PT INR APTT Fibrinogen Sodium Potassium Chloride Carbon Dioxide Anion Gap BUN Creatinine Estim Creat Clear Calc Est GFR (MDRD) Af Amer Est GFR (MDRD) Non-Af BUN/Creatinine Ratio Glucose Lactic Acid Calcium Ionized Calcium Total Bilirubin AST ALT Alkaline Phosphatase Lactate Dehydrogenase Total Protein Albumin Globulin Albumin/Globulin Ratio MRSA (PCR) Blood Type Antibody Screen Screen Baby's Blood Type Baby's SIRENA Crossmatch Clinical Impression(s) from Imaging Studies Pelvis X-Ray 05/04/17 03:40 IMPRESSION: Catheters as outlined above. No other foreign bodies noted. Electronically Signed: Gila Vargas MD at 4:41 EST , Service support , Assessment/Plan Active and Suspected Problems 40 weeks gestation of (Acute) Delivery of by section (Acute) hemorrhage (Acute) Endometritis (Acute) RECOMMENDATIONS: 1. Continue to monitor serial blood counts. The patient's hemoglobin was noted to be 7.9 g/dL this morning. She will receive 1 additional unit of packed red blood cells accordingly. 2. Recheck H&H 1 hour posttransfusion completion. 3. Continue antibiotics per OB 4. Lactated Ringer's can be discontinued, as the patient is tolerating p.o. intake 5. Continue oxycodone for pain 6. Wean supplemental oxygen to maintain saturations at or above 90%. 7. Encourage incentive spirometer use IMPRESSIONS: 1. Acute blood loss anemia secondary to hemorrhage Continue to monitor blood counts regularly. The patient's hemoglobin slowly fell over the course of last evening following transfusion of 2 units of packed red blood cells yesterday. Concern for continued slow oozing. The patient will be given an additional unit of packed red blood cells this morning. Will recheck H&H posttransfusion. 2. Thrombocytopenia Likely consumptive in nature secondary to hemorrhage. No indication for transfusion at this time. We will continue to monitor. 3. Lactic acidemia Resolved. Secondary to #1. Continue supportive measures as noted above. This note was generated with [email or web address] software. It may contain incorrect words, spelling, and punctuation that were not noted in checking the note before signing. Code Visit Inpatient E&M: 22005 Subs Hosp L2
[2017-05-05] MEDS: Clindamycin 900 MG/50 ML BAG 75 MG IV ×2 (05:18→16:00)
--- NOTE | 2017-05-05 10:14 | PCM.PN.OB ---
Patient Problems: Active and Suspected Problems 40 weeks gestation of (Acute) Delivery of by section (Acute) hemorrhage (Acute) Endometritis (Acute) Subjective: Awake and alert. Some crmaping but pain reasonably controlled. Tolerating PO. No nausea or vomiting. Objective: Afeb 99.1 Tachycardic to 120s. BP stable. urine output adequate. 300cc from uterine balloon over last day. LISET with light drainage. - Physical Exam General: Alert, Oriented x3, Cooperative, No apparent distress Lungs: Clear to auscultation, Normal air movement Cardiovascular: Regular rate, Regular Rhythm, Tachycardic Abdomen: Soft, - - Appropriately tender. Incision dressing dry Extremities: Edema - 2+ Skin: No rashes Neurological: Neuro grossly intact Psych/Mental Status: Normal Affect Comment: Scant vaginal bleeding. Balloon in place Vital Signs Temp Pulse Resp BP Pulse Ox 98.7 F 118 H 23 H 120/67 93 05/05/17 09:00 05/05/17 09:00 05/05/17 09:00 05/05/17 09:00 05/05/17 09:00 Oxygen Flow Rate 2 Oxygen Delivery Method Room Air Weight: 227 lb 1.218 oz Body Mass Index (BMI) 44.3 Intake and Output for Last 24 Hours 05/03/17 05/04/17 05/05/17 23:59 23:59 23:59 Intake Total 5320 / 5320 6656.6 / 6656.6 1388.5 / 1388.5 Output Total 2550 / 2550 6520 / 6520 2545 / 2545 Balance 2770 / 2770 136.6 / 136.6 -1156.5 / -1156.5 Laboratory Tests Past 24 Hrs 05/03/17 05/04/17 05/04/17 03:45 10:05 12:15 Hgb Hct Lactic Acid 3.2 H Screen NEGATIVE Baby's Blood Type PRESUMED RH POS Baby's SIRENA Crossmatch See Detail 05/04/17 05/04/17 05/04/17 15:30 17:30 21:35 Hgb 9.0 L 8.6 L Hct 26.1 L 24.6 L Lactic Acid 1.7 Screen Baby's Blood Type Baby's SIRENA Crossmatch 05/05/17 03:40 Hgb 7.9 L Hct 23.2 L Lactic Acid Screen Baby's Blood Type Baby's SIRENA Crossmatch Assessment/Plan Active and Suspected Problems 40 weeks gestation of (Acute) Delivery of by section (Acute) hemorrhage (Acute) Endometritis (Acute) Currently being transfused with one unit PRBC after Hgb drop overnight. Balloon removed from the uterus this morning. Small amount of bleeding after-old blood. Will recheck H/H after transfusion. Agree with holding IV fluids as taking adequate PO. Will keep sofia for now until assured stable. Keep LISET for now but if continues small amount of drainage will d/c tomorrow. Could consider transfer back to [facility] if seems stable later this afternoon or evening.. Continue antibiotics until afebrile for at least 48 hours.
--- NOTE | 2017-05-05 10:21 | PN.OBGYN_ITS ---
Patient Problems: Active and Suspected Problems 40 weeks gestation of (Acute) Delivery of by section (Acute) hemorrhage (Acute) Endometritis (Acute) Subjective: Awake and alert. Some crmaping but pain reasonably controlled. Tolerating PO. No nausea or vomiting. Objective: Afeb 99.1 Tachycardic to 120s. BP stable. urine output adequate. 300cc from uterine balloon over last day. LISET with light drainage. - Physical Exam General: Alert, Oriented x3, Cooperative, No apparent distress Lungs: Clear to auscultation, Normal air movement Cardiovascular: Regular rate, Regular Rhythm, Tachycardic Abdomen: Soft, - - Appropriately tender. Incision dressing dry Extremities: Edema - 2+ Skin: No rashes Neurological: Neuro grossly intact Psych/Mental Status: Normal Affect Comment: Scant vaginal bleeding. Balloon in place Vital Signs Temp Pulse Resp BP Pulse Ox 98.7 F 118 H 23 H 120/67 93 05/05/17 09:00 05/05/17 09:00 05/05/17 09:00 05/05/17 09:00 05/05/17 09:00 Oxygen Flow Rate 2 Oxygen Delivery Method Room Air Weight: 227 lb 1.218 oz Body Mass Index (BMI) 44.3 Intake and Output for Last 24 Hours 05/03/17 05/04/17 05/05/17 23:59 23:59 23:59 Intake Total 5320 / 5320 6656.6 / 6656.6 1388.5 / 1388.5 Output Total 2550 / 2550 6520 / 6520 2545 / 2545 Balance 2770 / 2770 136.6 / 136.6 -1156.5 / -1156.5 Laboratory Tests Past 24 Hrs 05/03/17 05/04/17 05/04/17 03:45 10:05 12:15 Hgb Hct Lactic Acid 3.2 H Screen NEGATIVE Baby's Blood Type PRESUMED RH POS Baby's SIRENA Crossmatch See Detail 05/04/17 05/04/17 05/04/17 15:30 17:30 21:35 Hgb 9.0 L 8.6 L Hct 26.1 L 24.6 L Lactic Acid 1.7 Screen Baby's Blood Type Baby's SIRENA Crossmatch 05/05/17 03:40 Hgb 7.9 L Hct 23.2 L Lactic Acid Screen Baby's Blood Type Baby's SIRENA Crossmatch Assessment/Plan Active and Suspected Problems 40 weeks gestation of (Acute) Delivery of by section (Acute) hemorrhage (Acute) Endometritis (Acute) Currently being transfused with one unit PRBC after Hgb drop overnight. Balloon removed from the uterus this morning. Small amount of bleeding after- old blood. Will recheck H/H after transfusion. Agree with holding IV fluids as taking adequate PO. Will keep sofia for now until assured stable. Keep LSIET for now but if continues small amount of drainage will d/c tomorrow. Could consider transfer back to L and D if seems stable later this afternoon or evening.. Continue antibiotics until afebrile for at least 48 hours.
[2017-05-05] MEDS: oxyCODONE 5 MG Tablet PO ×2 (11:33→16:46)
[2017-05-05 11:37] LABS: Hematocrit 25.3 % (37-47); Hemoglobin 8.7 g/dl (12.0-15.0)
[2017-05-06 02:00] VITALS: BP 110/69; PULSE 102; RESP 16; TEMP 36.8
[2017-05-06] MEDS: Senna/Docusate Sodium 1 Tablet PO (03:20)
[2017-05-06] MEDS: oxyCODONE 5 MG Tablet PO ×3 (03:20→16:11)
[2017-05-06 05:45] LABS: Absolute Lymphocyte Count 1.33 X10^3/ul (0.83-4.51); Absolute Neutrophil Count 10.8 X10^3/uL (2.0-7.7); Basophil# 0.02 X10^3/uL; Basophil% 0.2 % (0-1); Eosinophil# 0.26 X10^3/uL; Hematocrit 25.9 % (37-47); Hemoglobin 8.7 g/dl (12.0-15.0); Lymphocyte # 1.33 X10^3/ul (4.0); Mean Corp Hgb Conc 33.6 g/gl (32-36); Mean Corpuscular Hgb 28.8 pg (27.0-32.0); Mean Corpuscular Volume 85.8 fL (81-99); Mean Platelet Vol. 9.1 fl (6.2-12.0); Monocyte# 0.69 X10^3/uL; Monocyte% 5.2 % (0-10); Neutrophil % 81.2 % (47-70); Platelet Count 180 K/mm3 (150-450); RBC Distribution Width CV 15.9 % (11.6-14.6); RBC Distribution Width SD 49.6 fl (35.1-43.9); Red Blood Count 3.02 M/mm3 (4.2-5.4); White Blood Count 13.3 K/mm3 (4.4-11.0)
[2017-05-06 05:58] LABS: Anion Gap 9 (5-15); BUN 10 mg/dL (7-18); BUN/Creat Ratio 25.8 RATIO (10-20); Calcium,Total 7.8 mg/dL (8.5-10.1); Chloride 102 mmol/L (98-107); Creatinine, Serum 0.39 mg/dL (0.55-1.02); EST Glomerular Filtration Rate 209 mL/min (>60); Est Glom Filt Rate - Afr Amer 252 mL/min (>60); Estimated Creatinine Clearance 154.26 ml/min; Glucose 93 mg/dL (74-106); POSITIVE COUNT NO; POSITIVE DIFFERENTIAL NO; POSITIVE MORPHOLOGY NO; Sodium Level 137 mmol/L (136-145)
[2017-05-06 06:10] LABS: International Normalized Ratio 1.3; Prothrombin Time (Protime)PT. 15.5 SECONDS (11.7-14.9)
[2017-05-06 08:46] VITALS: BP 107/70; PULSE 102; RESP 18; TEMP 36.6; O2SAT 98
--- NOTE | 2017-05-06 08:55 | PCM.PN.OB ---
Patient Problems: Active and Suspected Problems 40 weeks gestation of (Acute) Delivery of by section (Acute) hemorrhage (Acute) Endometritis (Acute) Subjective: Doing well this morning. Pain reasonably controlled with oxycodone. Voiding. Bleeding light. Breast feeding and pumping. Objective: Afeb VSS. Hgb stable overnight. LISET with small drainage but serosanguinous. Urine output adequate. No fevers. - Physical Exam General: Alert, Oriented x3, Cooperative, No apparent distress Lungs: Clear to auscultation, Normal air movement Cardiovascular: Regular rate, Regular Rhythm Abdomen: Soft, Non-Distended, - - Incision dressing dry. LISET site without erythema. Appropriately tender Extremities: Edema - 1+ Skin: No rashes Neurological: Neuro grossly intact Psych/Mental Status: Normal Affect Comment: Lochia scant Vital Signs Temp Pulse Resp BP Pulse Ox 97.9 F 102 H 18 107/70 98 05/06/17 08:46 05/06/17 08:46 05/06/17 08:46 05/06/17 08:46 05/06/17 08:46 Oxygen Flow Rate 2 Oxygen Delivery Method Room Air Weight: 227 lb 1.218 oz Body Mass Index (BMI) 44.3 Intake and Output for Last 24 Hours 05/04/17 05/05/17 05/06/17 23:59 23:59 23:59 Intake Total 6656.6 / 6656.6 2613.9 / 2613.9 Output Total 6520 / 6520 3645 / 3645 225 / 225 Balance 136.6 / 136.6 -1031.1 / -1031.1 -225 / -225 Laboratory Tests Past 24 Hrs 05/03/17 05/05/17 05/06/17 03:45 11:30 05:30 WBC 13.3 H RBC 3.02 L Hgb 8.7 L 8.7 L Hct 25.3 L 25.9 L MCV 85.8 MCH 28.8 MCHC 33.6 RDW 15.9 H RDW Differential 49.6 H Plt Count 180 MPV 9.1 Immature Gran % (Auto) 1.400 H Neut % (Auto) 81.2 H Lymph % (Auto) 10.0 L [place] % (Auto) 5.2 Eos % (Auto) 2.0 Baso % (Auto) 0.2 Absolute Neuts (auto) 10.8 H Absolute Lymphs (auto) 1.33 Total Counted Not Reportable PT INR Sodium Potassium Chloride Carbon Dioxide Anion Gap BUN Creatinine Estim Creat Clear Calc Est GFR (MDRD) Af Amer Est GFR (MDRD) Non-Af BUN/Creatinine Ratio Glucose Calcium Crossmatch See Detail 05/06/17 05/06/17 05:30 05:30 WBC RBC Hgb Hct MCV MCH MCHC RDW RDW Differential Plt Count MPV Immature Gran % (Auto) Neut % (Auto) Lymph % (Auto) [place] % (Auto) Eos % (Auto) Baso % (Auto) Absolute Neuts (auto) Absolute Lymphs (auto) Total Counted PT 15.5 H INR 1.3 Sodium 137 Potassium 3.0 L Chloride 102 Carbon Dioxide 26.0 Anion Gap 9 BUN 10 Creatinine 0.39 L Estim Creat Clear Calc 154.26 Est GFR (MDRD) Af Amer 252 Est GFR (MDRD) Non-Af 209 BUN/Creatinine Ratio 25.8 H Glucose 93 Calcium 7.8 L Crossmatch Assessment/Plan Active and Suspected Problems 40 weeks gestation of (Acute) Delivery of by section (Acute) hemorrhage (Acute) Endometritis (Acute) Hgb stable overnight. LISET drain removed without difficulty. No fevers so antibiotics were d/c'd yesterday with no signs of endomyometritis. Will continue comfort care today and anticipate discharge home tomorrow.
--- NOTE | 2017-05-06 09:07 | DCINST_ITS ---
Discharge Diet: No Restrictions Discharge Activity: Return to Normal Activity, May Not Drive, May not drive while taking narcotic pain medications., May Shower Return to work on:: 07/02/17 May resume sexual activity in: 4-6 weeks Call your doctor if your incision/area has: Continuous Slow Oozing, Sudden Increased Bleeding, Increased Pain/ Swelling, Increased Redness, Foul Smelling Discharge, Swelling at the incision site Call your doctor if you observe: Fever of 101 or Higher, Inability to urinate, Inability to have a bowel movement, Using more than one pad per hour, Shortness of breath, Chest pain, Calf discomfort, Uncontrolled pain Cleanse incision/area with: Soap & Water Additional Instructions: If you experience any of the following, contact your healthcare provider. * Bleeding that soaks a pad every hour for 2 hours * Fever 100.4 or higher * Unrelieved incision or abdominal pain * Swelling, redness, discharge or bleeding from your incision or episiotomy site * Your incision begins to separate * Problems urinating (including inability to urinate or burning while urinating) . * Visual changes * Severe headache * Flu-like symptoms * Pain or redness in one of both of your breasts * Pain, warmth, tenderness or swelling in your legs, especially the calf area * Frequent nausea and vomiting * Symptoms of depression or anxiety If you experience any of the following, call 911 or go to the nearest Emergency Room. * Chest pain * Problems breathing * Seizure activity * Partial or complete paralysis of a body part, slurred speech, weakness or drooping of the face, or a sudden inability to walk or hold your balance Allergies/Adverse Reactions: Allergies latex Allergy (Verified 05/03/17 03:30) Rash codeine Adverse Reaction (Verified 05/03/17 03:30) Vomiting Medications to take at Discharge Vits [Prenatabs FA ] 1 tablet PO DAILY 05/03/17 Ferrous Gluconate 325 mg PO BIDCM #60 tab 05/06/17 Ibuprofen [Motrin] 800 mg PO TID PRN PRN #30 tab 05/06/17 Oxycodone [Oxyir] 5 - 10 mg PO Q4H PRN PRN 7 Days #28 tab 05/06/17 The following prescriptions were given: Oxycodone [Oxyir] 5 - 10 mg PO Q4H PRN PRN 7 Days #28 tab PRN Reason: Mod-Severe Pain (4-12/26) Ibuprofen [Motrin] 800 mg PO TID PRN PRN #30 tab PRN Reason: pain or cramping Ferrous Gluconate 325 mg PO BIDCM #60 tab Follow-Up: Call to make an appointment with your doctor for an incision check in 1-2 weeks. You will also need a 6 week post- follow up appointment. Please Follow Up With: Teena Yañez MD When: one week Primary Care Physician: Care Physician,No Primary [Primary Care Provider] - Proposed Discharge Date: 05/07/17
--- NOTE | 2017-05-06 12:24 | NURSING ---
LISET drain removed and dressing change by Dr Del Rosario this am.
[2017-05-06 13:52] VITALS: BP 126/73; PULSE 91; RESP 18; TEMP 36.9; O2SAT 95
[2017-05-06] MEDS: Ibuprofen 600 MG Tablet PO (18:26)
[2017-05-06 20:30] VITALS: BP 129/73; PULSE 99; RESP 16; TEMP 36.6
[2017-05-07 02:05] VITALS: BP 106/70; PULSE 70; RESP 16; TEMP 36.4
[2017-05-07] MEDS: oxyCODONE 5 MG Tablet PO ×2 (02:13→08:58)
[2017-05-07] MEDS: Ibuprofen 600 MG Tablet PO (05:42)
[2017-05-07 08:00] VITALS: BP 112/60; PULSE 76; RESP 16; TEMP 36.6; O2SAT 97
[2017-05-07 10:13] LABS: Pathologist Review Reviewed
[2017-05-07] MEDS: Senna/Docusate Sodium 1 Tablet PO (11:19)
[2017-05-07 12:00] VITALS: BP 120/68; PULSE 78; RESP 16; RESP 18; TEMP 36.6; O2SAT 97
--- NOTE | 2017-05-07 20:17 | PCM.DC.SUM ---
Discharge Date and Diagnosis - Problem List Patient Problems: Active and Suspected Problems Delivery of by section (Acute) hemorrhage (Acute) Endometritis (Acute) Date of Admission: 05/03/17 Date of Discharge: 05/07/17 Hospital Course and Treatment Imaging Results: MR#: [id number] Acct: [id number] Name: ADONIS ADAMS Rep #: [id number] : 1990 F 26 From: Gila Vargas MD PCP: Care Physician, No Primary Status: ADM IN Study: Pelvis 1 or 2 Views Date of Exam: 05/04/17 Exam# [id number] Ordering Dr: Fuentes Del Rosario MD STUDY: X-RAY - PELVIS REASON FOR EXAM: Female, 26 years old. Question foreign body, no confluent sponges or instrumentation done prior to emergent . TECHNIQUE: One view of the pelvis was obtained. COMPARISON: None. FINDINGS: There is a catheter superimposed over the midline urinary bladder level and a catheter coiling over the mid and right pelvis possible a drain. No other radiopaque densities detected. Normal visualized soft tissue structures. Normal bilateral iliac wings, sacroiliac joints and visualized sacrum. Normal visualized bilateral superior and inferior pubic rami. Normal pubic symphysis. Normal ischial tuberosities. Normal visualized right femoral head. Normal right acetabulum. Normal right hip joint. Normal visualized left femoral head. Normal left acetabulum. Normal left hip joint. RAD/Pelvis 1 or 2 Views IMPRESSION: Catheters as outlined above. No other foreign bodies noted. Electronically Signed: Gila Vargas MD at 4:41 EST , Service support , Consultations 05/03/17 03:25 Consult: Anesthesia Routine Comment: Reason For Exam: Consult: Critical care Operations: - - section, examination under anesthesia with dilation and curettage, exploratory laparotomy Procedures: None Summary of Care Provided: The patient is a 26 year old F 1 para 0 admitted at 40 weeks gestational age in labor. She progressed to to 8-9cm dilation and subsequently had a section for arrest of dilation. Her infant was 9lb 6oz. Her immediate course was complicated by a post- hemorrhage. She subsequently had an examination under anesthesia with dilation and curettage and Bakri balloon placement under MAC, then an exploratory laparotomy under general anesthesia for continued hemodynamic instability. She was transferred to the ICU from the OR. She received multiple uterotonics as well as a total of 6 u prbc and 4 units ffp. IV Gentamicin, Clindamycin was administered for presumed intrauterine infection. She vitals improved with blood transfusion and volume resuscitation and was out of bed to chair and tolerating a regular diet by the evening following surgeries. On post-operative day 1 the Bakri balloon was removed with no further significant bleeding. Adonis was then transferred to the [facility] for continued post-operative care. She was out of bed and ambulating, passing flatus, . Her Hgb remained stable at 8.7. She was discharged to home on post-operative day #4 without further complication. Discharge Diet: No Restrictions Discharge Activity: Return to Normal Activity, May Not Drive, May not drive while taking narcotic pain medications., May Shower Return to work on:: 07/02/17 May resume sexual activity in: 4-6 weeks Call your doctor if your incision/area has: Continuous Slow Oozing, Sudden Increased Bleeding, Increased Pain/ Swelling, Increased Redness, Foul Smelling Discharge, Swelling at the incision site Call your doctor if you observe: Fever of 101 or Higher, Inability to urinate, Inability to have a bowel movement, Using more than one pad per hour, Shortness of breath, Chest pain, Calf discomfort, Uncontrolled pain Cleanse incision/area with: Soap & Water Home Medications: Medications to take at Discharge Vits [Prenatabs FA ] 1 tablet PO DAILY 05/03/17 Ferrous Gluconate 325 mg PO BIDCM #60 tab 05/06/17 Ibuprofen [Motrin] 800 mg PO TID PRN PRN #30 tab 05/06/17 Oxycodone [Oxyir] 5 - 10 mg PO Q4H PRN PRN 7 Days #28 tab 05/06/17 Calcium Citrate 2 tab PO BID #90 tab 05/07/17 Following Prescrptions Were Given to Patient: Oxycodone [Oxyir] 5 - 10 mg PO Q4H PRN PRN 7 Days #28 tab PRN Reason: Mod-Severe Pain (-12/26) Ibuprofen [Motrin] 800 mg PO TID PRN PRN #30 tab PRN Reason: pain or cramping Calcium Citrate 2 tab PO BID #90 tab Ferrous Gluconate 325 mg PO BIDCM #60 tab Primary Care Physician: Care Physician,No Primary [Primary Care Provider] - Please Follow Up With: Teena Yañez MD When: one week Meaningful Use Info Meaningful Use Diagnoses (Choose all that apply): None applicable
--- NOTE | 2017-05-07 20:27 | DS.PCM_ITS ---
Discharge Date and Diagnosis - Problem List Patient Problems: Active and Suspected Problems Delivery of by section (Acute) hemorrhage (Acute) Endometritis (Acute) Date of Admission: 05/03/17 Date of Discharge: 05/07/17 Hospital Course and Treatment Imaging Results: MR#: [id number] Acct: [id number] Name: ADONIS ADAMS Rep #: [id number] : 1990 F 26 From: Gila Vargas MD PCP: Care Physician, No Primary Status: ADM IN Study: Pelvis 1 or 2 Views Date of Exam: 05/04/17 Exam# [id number] Ordering Dr: Fuentes Del Rosario MD STUDY: X-RAY - PELVIS REASON FOR EXAM: Female, 26 years old. Question foreign body, no confluent sponges or instrumentation done prior to emergent . TECHNIQUE: One view of the pelvis was obtained. COMPARISON: None. FINDINGS: There is a catheter superimposed over the midline urinary bladder level and a catheter coiling over the mid and right pelvis possible a drain. No other radiopaque densities detected. Normal visualized soft tissue structures. Normal bilateral iliac wings, sacroiliac joints and visualized sacrum. Normal visualized bilateral superior and inferior pubic rami. Normal pubic symphysis. Normal ischial tuberosities. Normal visualized right femoral head. Normal right acetabulum. Normal right hip joint. Normal visualized left femoral head. Normal left acetabulum. Normal left hip joint. RAD/Pelvis 1 or 2 Views IMPRESSION: Catheters as outlined above. No other foreign bodies noted. Electronically Signed: Gila Vargas MD at 4:41 EST , Service support , Consultations 05/03/17 03:25 Consult: Anesthesia Routine Comment: Reason For Exam: Consult: Critical care Operations: - - section, examination under anesthesia with dilation and curettage, exploratory laparotomy Procedures: None Summary of Care Provided: The patient is a 26 year old F 1 para 0 admitted at 40 weeks gestational age in labor. She progressed to to 8-9cm dilation and subsequently had a section for arrest of dilation. Her infant was 9lb 6oz. Her immediate course was complicated by a post- hemorrhage. She subsequently had an examination under anesthesia with dilation and curettage and Bakri balloon placement under MAC, then an exploratory laparotomy under general anesthesia for continued hemodynamic instability. She was transferred to the ICU from the OR. She received multiple uterotonics as well as a total of 6 u prbc and 4 units ffp. IV Gentamicin, Clindamycin was administered for presumed intrauterine infection. She vitals improved with blood transfusion and volume resuscitation and was out of bed to chair and tolerating a regular diet by the evening following surgeries. On post-operative day 1 the Bakri balloon was removed with no further significant bleeding. Adonis was then transferred to the [facility] for continued post-operative care. She was out of bed and ambulating, passing flatus, . Her Hgb remained stable at 8.7. She was discharged to home on post-operative day #4 without further complication. Discharge Diet: No Restrictions Discharge Activity: Return to Normal Activity, May Not Drive, May not drive while taking narcotic pain medications., May Shower Return to work on:: 07/02/17 May resume sexual activity in: 4-6 weeks Call your doctor if your incision/area has: Continuous Slow Oozing, Sudden Increased Bleeding, Increased Pain/ Swelling, Increased Redness, Foul Smelling Discharge, Swelling at the incision site Call your doctor if you observe: Fever of 101 or Higher, Inability to urinate, Inability to have a bowel movement, Using more than one pad per hour, Shortness of breath, Chest pain, Calf discomfort, Uncontrolled pain Cleanse incision/area with: Soap & Water Home Medications: Medications to take at Discharge Vits [Prenatabs FA ] 1 tablet PO DAILY 05/03/17 Ferrous Gluconate 325 mg PO BIDCM #60 tab 05/06/17 Ibuprofen [Motrin] 800 mg PO TID PRN PRN #30 tab 05/06/17 Oxycodone [Oxyir] 5 - 10 mg PO Q4H PRN PRN 7 Days #28 tab 05/06/17 Calcium Citrate 2 tab PO BID #90 tab 05/07/17 Following Prescrptions Were Given to Patient: Oxycodone [Oxyir] 5 - 10 mg PO Q4H PRN PRN 7 Days #28 tab PRN Reason: Mod-Severe Pain (-12/26) Ibuprofen [Motrin] 800 mg PO TID PRN PRN #30 tab PRN Reason: pain or cramping Calcium Citrate 2 tab PO BID #90 tab Ferrous Gluconate 325 mg PO BIDCM #60 tab Primary Care Physician: Care Physician,No Primary [Primary Care Provider] - Please Follow Up With: Teena Yañez MD When: one week Meaningful Use Info Meaningful Use Diagnoses (Choose all that apply): None applicable
[2017-05-08 14:30] LABS: Pathology Specimen OB SEE PATHOLOGY REPORT
== END 2017-05-07 13:00 | disposition home or self-care (01) | DRG 765 ==
LOC: WP 23:59 → ICU 05-04 04:32 → WP 05-05 14:07
PROVIDERS: Internal Medicine Critical Care Medicine; Obstetrics & Gynecology; Admitting Provider Obstetrics & Gynecology; Visit Provider Obstetrics & Gynecology
DX: O62.0 Primary inadequate contractions (principal); O71.9 Obstetric trauma, unspecified; O75.3 Other infection during labor; O72.1 Other immediate postpartum hemorrhage; O90.81 Anemia of the puerperium; Z91.040 Latex allergy status; Z3A.40 40 weeks gestation of pregnancy; Z37.0 Single live birth
CPT/HCPCS: 59025; 59050; 72170; 76815; 80047; 80048; 80053; 83605; 83615; 85014; 85018; 85025; 85027; 85384; 85461; 85610; 85730; 86850; 86900; 86920; 87641; 88307; 90384; 93460; 97802; 99218; J7030; J7040; J7050; J7120; P9016; P9017; A4216; G0378; J0610; J2405; J2790

== ENCOUNTER 2017-05-10 12:14 | Outpatient (CLI) | payer SELFPAY | END 2017-05-10 12:44 | disposition home or self-care (01) | LOC: WPOUT 12:16 → WP 12:17 | PROVIDERS: Visit Provider Obstetrics & Gynecology | DX: Z39.1 Encounter for care and examination of lactating mother (principal) | CPT/HCPCS: 96152 ==

== ENCOUNTER → 2018-03-05 11:11 | Outpatient (CLI) | payer SELFPAY ==
[2017-05-04 05:55] VITALS: BMI 44.3
[2018-03-07 16:26] LABS: HPV Reflexed? NOT INDICATED
--- OUTSIDE RECORDS SUMMARY | 2018-06-06 20:07 | XMS RPT_ITS ---
:1990 Author Organization OHIP Care Team Providers Name Role Phone Teena Yañez Attending Unavailable Teena Yañez Referring Unavailable Primay Care Physicia, No Primary Care Unavailable Primay Care Physicia, No Primary Care Unavailable Fuentes Del Rosario Admitting Unavailable Fuentes Del Rosario Attending Unavailable Jon Pisano D.O. Consulting Unavailable Teena Yañez Attending Unavailable Primay Care Physicia, No Primary Care Unavailable MYNOR ARBOLEDA Attending Unavailable Fuentes Del Rosario Admitting Unavailable Charlee Lowe.Ruchi. Attending Unavailable Primay Care Physicia, No Primary Care Unavailable Charlee Lowe.Ruchi. Consulting Unavailable Fuentes Del Rosario Consulting Unavailable Fuentes Del Rosario Admitting Unavailable Jon Pisano D.O. Attending Unavailable Primay Care Physicia, No Primary Care Unavailable Jon Pisano D.O. 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 [facility] O62.1(ICD-10) Hospital Repository 04/23/2017 Unknown Z34.83 - Encounter MYNOR ARBOLEDA for supervision of [facility] other normal Hospital , third Repository trimester / Z34.83(ICD-10) 04/23/2017 Unknown O12.03 - Gestational MYNOR ARBOLEDA edema, third Community trimester / Hospital O12.03(ICD-10) Repository 04/23/2017 Unknown R03.0 - Elevated MYNOR ARBOLEDA blood-pressure Community reading, without Hospital diagnosis of Repository hypertension / R03.0(ICD-10) PROCEDURES PROCEDURES No Procedure Records FoundRESULTS RESULTS PAP I-G W/RFX HRHPV Collected: 03/04/2018 Status: F Source: [facility] 2:30 PM [facility] REPOSITORY Order Comment: CYTOLOGY INFORMATION: - CLINICAL INFORMATION: - DATE LMP/MENOPAUSE: 02/17/18 LMP - COLLECTION VIAL: Thin Prep Vial - SURVEY OPERATIONS DIRECTOR SOURCE: CERVICAL/ENDOCERVICAL - COLLECTION TECHNIQUE: BRUSH/SPATULA Specimen Comment: [id number] Specimen Comment: Source.............Cervix;Endocervix Specimen Comment: LMP / Prev Treat...OCV=[id number] Specimen Comment: No. of containers..01 ThinPrep Vial TYPE CODE TESTS RESULT OUT OF RANGE REFERENCE UNITS LAB L7400.0800 . Normal DIAGN Comment Result Comment: NEGATIVE FOR INTRAEPITHELIAL LESION AND MALIGNANCY. LAB L7400.0900 . Normal ADEQ Comment Result Comment: Satisfactory for evaluation. Endocervical and/or squamous metaplastic cells (endocervical component) are present. LAB L7400.1400 . Normal PERFORM Comment Result Comment: Lashonda Kessler, Neurodiagnostic Technologist (ASCP) LAB L7400.2575 . Normal TEST METHOD Comment Result Comment: This liquid based ThinPrep(R) pap test was screened with the use of an image guided system. LAB L7400.2600 . Normal . COMM LAB L7400.2700 . Normal PAPSMR Comment Result Comment: The Pap smear is a screening test designed to aid in the detection of premalignant and malignant conditions of the uterine cervix. It is not a diagnostic procedure and should not be used as the sole means of detecting cervical cancer. Both false-positive and false-negative reports do occur. LAB L7400.2800 . Normal HPV RFLX Comment Result Comment: The HPV DNA reflex criteria were not met with this specimen result therefore, no HPV testing was performed. Performed at: - [facility] [id number] Secretary Bookkeeper: Kaya Law MD, Phone: [phone] Performed By: #### L7400.0350 #### [facility] (refer to report for specific site) refer to report for address and phone number DISCHARGE SUMMARY Observed: 05/07/2017 Status: F Source: [facility] 8:28 PM [facility] REPOSITORY [facility] Medical Records Department [address] [place] [address] Discharge Summary 05/07/172016 MR#: [id number] Acct: [id number] Name: ADONIS HODGSON Rep #: [id number] : 1990 26 From: Teena Mejia MD PCP: Care Physician, No Primary Status: DIS IN Y Location: [place] [address]-1 Discharge Date and Diagnosis - Problem List Patient Problems: Active and Suspected Problems Delivery of by section (Acute) hemorrhage (Acute) Endometritis (Acute) Date of Admission: 05/03/17 Date of Discharge: 05/07/17 Hospital Course and Treatment Imaging Results: MR#: [id number] Acct: [id number] Name: ADONIS HODGSON Rep #: [id number] : 1990 F 26 From: Gila Vargas MD PCP: Care Physician, No Primary Status: ADM IN Study: Pelvis 1 or 2 Views Date of Exam: 05/04/17 Exam# [id number] Ordering Dr: Fuentes Del Rosario MD STUDY: X-RAY - PELVIS REASON FOR EXAM: Female, 26 years old. Question foreign body, no confluent sponges or instrumentation done prior to emergent . TECHNIQUE: One view of the pelvis was obtained. COMPARISON: None. FINDINGS: There is a catheter superimposed over the midline urinary bladder level and a catheter coiling over the mid and right pelvis possible a drain. No other radiopaque densities detected. Normal visualized soft tissue structures. Normal bilateral iliac wings, sacroiliac joints and visualized sacrum. Normal visualized bilateral superior and inferior pubic rami. Normal pubic symphysis. Normal ischial tuberosities. Normal visualized right femoral head. Normal right acetabulum. Normal right hip joint. Normal visualized left femoral head. Normal left acetabulum. Normal left hip joint. RAD/Pelvis 1 or 2 Views IMPRESSION: Catheters as outlined above. No other foreign bodies noted. Electronically Signed: Gila Vargas MD at 4:41 EST , Service support , Consultations 05/03/17 03:25 Consult: Anesthesia Routine Comment: Reason For Exam: Consult: Critical care Operations: - - section, examination under anesthesia with dilation and curettage, exploratory laparotomy Procedures: None Summary of Care Provided: The patient is a 26 year old F 1 para 0 admitted at 40 weeks gestational age in labor. She progressed to to 8-9cm dilation and subsequently had a section for arrest of dilation. Her was 9lb 6oz. Her immediate course was complicated by a post- hemorrhage. She subsequently had an examination under anesthesia with dilation and curettage and Bakri balloon placement under MAC, then an exploratory laparotomy under general anesthesia for continued hemodynamic instability. She was transferred to the ICU from the OR. She received multiple uterotonics as well as a total of 6 u prbc and 4 units ffp. IV Gentamicin, Clindamycin was administered for presumed intrauterine infection. She vitals improved with blood transfusion and volume resuscitation and was out of bed to chair and tolerating a regular diet by the evening following surgeries. On post-operative day 1 the Bakri balloon was removed with no further significant bleeding. Adonis was then transferred to the [facility] for continued post-operative care. She was out of bed and ambulating, passing flatus, . Her Hgb remained stable at 8.7. She was discharged to home on post-operative day #4 without further complication. Discharge Diet: No Restrictions Discharge Activity: Return to Normal Activity, May Not Drive, May not drive while taking narcotic pain medications., May Shower Return to work on:: 07/02/17 May resume sexual activity in: 4-6 weeks Call your doctor if your incision/area has: Continuous Slow Oozing, Sudden Increased Bleeding, Increased Pain/ Swelling, Increased Redness, Foul Smelling Discharge, Swelling at the incision site Call your doctor if you observe: Fever of 101 or Higher, Inability to urinate, Inability to have a bowel movement, Using more than one pad per hour, Shortness of breath, Chest pain, Calf discomfort, Uncontrolled pain Cleanse incision/area with: Soap AND Water Home Medications: Medications to take at Discharge Vits [Prenatabs FA ] 1 tablet PO DAILY 05/03/17 Ferrous Gluconate 325 mg PO BIDCM #60 tab 05/06/17 Ibuprofen [Motrin] 800 mg PO TID PRN PRN #30 tab 05/06/17 Oxycodone [Oxyir] 5 - 10 mg PO Q4H PRN PRN 7 Days #28 tab 05/06/17 Calcium Citrate 2 tab PO BID #90 tab 05/07/17 Following Prescrptions Were Given to Patient: Oxycodone [Oxyir] 5 - 10 mg PO Q4H PRN PRN 7 Days #28 tab PRN Reason: Mod-Severe Pain (4-10/10) Ibuprofen [Motrin] 800 mg PO TID PRN PRN #30 tab PRN Reason: pain or cramping Calcium Citrate 2 tab PO BID #90 tab Ferrous Gluconate 325 mg PO BIDCM #60 tab Primary Care Physician: Care Physician,No Primary [Primary Care Provider] - Please Follow Up With: Teena Yañez MD When: one week Meaningful Use Info Meaningful Use Diagnoses (Choose all that apply): None applicable 05/07/172027 <Electronically signed by Teena Yañez MD> Date Teena Yañez MD Cosigner Signature (if applicable): Date CC: No Primary Care Physician; Teena Yañez MD Signed OPERATIVE REPORT Observed: 05/07/2017 Status: F Source: [facility] 8:15 PM [facility] REPOSITORY [facility] Medical Records Department [address] [place] [address] Operative Report 05/04/17 0437 MR#: [id number] Acct: [id number] Name: ADONIS HODGSON Rep #: [id number] : 1990 26 From: Teena Mejia MD PCP: Care Physician, No Primary Status: DIS IN Y [id number] Problem List (1) Delivery of by section Status: Acute (2) hemorrhage Status: Acute Qualifiers: hemorrhage type: other immediate Qualified Code(s): O72.1 - Other immediate hemorrhage (3) Endometritis Status: Acute Report of Operation Date of Procedure: 05/04/17 Pre-Operative Diagnosis: Status post section, hemorrhage Post-Operative Diagnosis: Status post section, hemorrhage, endometritis Surgery/Procedure Performed:: Examination under anesthesia, dilation and curettage, Bakri balloon placement Description of Surgical Findings:: Lower uterine segment atony medicine tech: Alison Esposito Type of Anesthesia:: MAC Anesthesiologist: Betty Saleh Specimen's removed: none Drains: Bakri - no drainage Estimated Blood Loss (mL): 1490 mL Description of Procedure: The labor and delivery nurse requested I return to the OR shortly after I completed patient section for vaginal bleeding. On my arrival the patient had some blood and clots on a Chux pad. Her fundus was firm. Intrauterine exam was performed retrieving approximately 500 cc of blood and clot in addition to what was already present. There was heavy vaginal bleeding and the patient had become significantly tachycardic and was noted to have pallor. At this time I decided to proceed with an examination under anesthesia. Cytotec 800 mcg was placed per rectally. Following discussion with the ATLASSIAN ADMINISTRATOR, MAC was performed. I quickly left the OR to discuss the turn of events with Adonis's , Robert, and reviewed with him my concern for hemorrhage and the necessity of identifying its source and cause, my plan to proceed with examination under anesthesia, and blood transfusion. He was in agreement with plan. On return to the OR the patient was comfortable and in dorsal lithotomy. The perineum was prepped and draped in sterile fashion. Vaginal wall retractors were placed. There was no vaginal laceration present and I walked ring forceps around the cervix 360 . There was no evidence of cervical laceration. I performed ultrasound-guided curettage with no retrieval of products of conception. This is also followed by gauze curettage with some improvement of lower uterine segment tone however the bleeding continued. At this time the patient was given a dose of Hemabate IM. I placed a Bakri balloon with a total of 360 cc of normal saline however there was little drainage on return. The vagina was packed. Transexamic acid was also administered IV. The patient's heart rate had improved from the 160s down to the 120s-130s and her blood pressure remained stable however her heart rate did not decrease further. On ultrasound there is no evidence of free fluid in the abdomen or pelvis however this was limited by body habitus. Blood transfusion was started in the examination under anesthesia. I suspected the source of bleeding was subclinical chorioamnionitis now endometritis given the presence of the questionably mucopurulent amniotic fluid noted at the time of rupture during section. There was no other evidence for source of bleeding. Gentamicin and clindamycin were ordered.There was no significant free fluid in pelvis noted on US. I waited approximately 15 minutes however there was no further improvement of the patient's vitals and mild abdominal distention was noted, thus I opted to proceed with exploratory laparotomy. Please see operative note for further details laparotomy. Sponge counts for the EUA were correct x 2. - Admit VTE Documentation VTE Present on Admission: No VTE Mechan Device Prophylaxis: SCD's VTE Pharm Prophylaxis ordered?: No 05/07/172014 <Electronically signed by Teena Yañez MD> Date Teena Yañez MD CC: No Primary Care Physician; Jon Pisano D.O.; Teena Yañez MD Signed OPERATIVE REPORT Observed: 05/07/2017 Status: F Source: [facility] 7:57 PM [facility] REPOSITORY [facility] Medical Records Department [address] [place] [address] Operative Report 05/04/17 0517 MR#: [id number] Acct: [id number] Name: ADONIS HODGSON Rep #: [id number] : 1990 26 From: Teena Mejia MD PCP: Care Physician, No Primary Status: DIS IN Y Location: [id number] Problem List (1) Delivery of by section Status: Acute (2) hemorrhage Status: Acute (3) Endometritis Status: Acute Report of Operation Date of Procedure: 05/04/17 Pre-Operative Diagnosis: Status post section, hemorrhage Post-Operative Diagnosis: Status post section, hemorrhage, endometritis Surgery/Procedure Performed:: Exploratory laparotomy Description of Surgical Findings:: Lower uterine segment atony medicine tech: Mela Henry medicine tech: Alison Esposito Type of Anesthesia:: General Anesthesiologist: Tristin Fierro Specimen's removed: none Drains: LISET Estimated Blood Loss (mL): 400 Description of Procedure: Prior operative notes and progress notes for details of patient's hemorrhage. Given persistent tachycardia in setting of hemorrhage despite intravenous fluid resuscitation and blood transfusion and vaginal packings, I recommended proceeding with exploratory laparotomy. I reviewed with Adonis's Robert, my concern and the importance of ruling out any internal/intra-abdominal source of bleeding as this must be addressed if present to ensure hemodynamic stability. I discussed with him potential for further surgery, including hysterectomy, and reviewed risks of laparotomy. Her agreed with plan to proceed with laparotomy. The vaginal packing was removed and the patient was placed into the dorsal supine position. She was under general anesthesia and intubated. The abdomen was prepped and draped in sterile fashion. The Pfannenstiel incision was taken down using scalpel and scissors to level the peritoneum. The peritoneal sutures were cut and the abdomen entered. The uterus was exteriorized and inspected. The uterus was boggy at the lower uterine segment and the BAKRI balloon was not palpable. I began vigorous massage of the uterus. At this time Dr. Pham performed an examination vaginally and it appeared that the bulky balloon had expulsed. Intramyometrial hemabate was placed. The Bakri balloon was replaced with a total of 320 cc normal saline and subsequently drained 300 mL of blood. A second dose intramyometrial hemabate dose was also injected. Uterine tone had improved. The posterior cul-de-sac was cleared of debris and clots and the uterus and adnexa were returned to the abdomen. The hysterotomy was again inspected there was no bleeding along the suture line. There was a small amount of capillary bleeding from along denuded peritoneum of the inferior broad ligament bilaterally but no active bleeding. FloSeal was placed at these sites for additional hemostasis. I proceeded with closure given no active bleeding. The peritoneum was reapproximated with the muscle using 2-0 Vicryl mattress sutures. Fascia was reapproximated using 0 Vicryl running suture. The subcutaneous tissue was reapproximated using 2-0 Vicryl running suture. Skin was closed using 4-0 Monocryl. Sean was placed along each of the tissue layers from the hysterotomy, muscle, fascia, subcutaneous tissue layer. The fundus remained firm and a Mepilex occlusive dressing was placed. The sponge and instrument count was correct x 2, however, as the count occurred after opening of the tray and laparotomy, an abdominal film was obtained. The abdominal film had no evidence of retained sponge, needle or instruments. That patient was awakened, extubated and transferred to the ICU for recovery and post-op care. - Admit VTE Documentation VTE Present on Admission: No VTE Mechan Device Prophylaxis: SCD's VTE Pharm Prophylaxis ordered?: No 05/07/171956 <Electronically signed by Teena Yañez MD> Date Teena Yañez MD CC: No Primary Care Physician; Jon Pisano D.O.; Teena Yañez MD Signed DISCHARGE INSTRUCTION Observed: 05/06/2017 Status: F Source: [facility] 9:07 AM [facility] REPOSITORY [facility] Medical Records Department [address] [place] [address] Instructions for Home/Discharge Instructions 05/06/17905 MR#: [id number] Acct: [id number] Name: ADONIS HODGSON Rep #: [id number] : 1990 26 From: Fuentes Del Rosario MD PCP: Care Physician, No Primary Status: ADM IN Discharge Diet: No Restrictions Discharge Activity: Return to Normal Activity, May Not Drive, May not drive while taking narcotic pain medications., May Shower Return to work on:: 07/02/17 May resume sexual activity in: 4-6 weeks Call your doctor if your incision/area has: Continuous Slow Oozing, Sudden Increased Bleeding, Increased Pain/ Swelling, Increased Redness, Foul Smelling Discharge, Swelling at the incision site Call your doctor if you observe: Fever of 101 or Higher, Inability to urinate, Inability to have a bowel movement, Using more than one pad per hour, Shortness of breath, Chest pain, Calf discomfort, Uncontrolled pain Cleanse incision/area with: Soap AND Water Additional Instructions: If you experience any of the following, contact your healthcare provider. * Bleeding that soaks a pad every hour for 2 hours * Fever 100.4 or higher * Unrelieved incision or abdominal pain * Swelling, redness, discharge or bleeding from your incision or episiotomy site * Your incision begins to separate * Problems urinating (including inability to urinate or burning while urinating). * Visual changes * Severe headache * Flu-like symptoms * Pain or redness in one of both of your breasts * Pain, warmth, tenderness or swelling in your legs, especially the calf area * Frequent nausea and vomiting * Symptoms of depression or anxiety If you experience any of the following, call 911 or go to the nearest Emergency Room. * Chest pain * Problems breathing * Seizure activity * Partial or complete paralysis of a body part, slurred speech, weakness or drooping of the face, or a sudden inability to walk or hold your balance Allergies/Adverse Reactions: Allergies latex Allergy (Verified 05/03/17 03:30) Rash codeine Adverse Reaction (Verified 05/03/17 03:30) Vomiting Medications to take at Discharge Vits [Prenatabs FA ] 1 tablet PO DAILY 05/03/17 Ferrous Gluconate 325 mg PO BIDCM #60 tab 05/06/17 Ibuprofen [Motrin] 800 mg PO TID PRN PRN #30 tab 05/06/17 Oxycodone [Oxyir] 5 - 10 mg PO Q4H PRN PRN 7 Days #28 tab 05/06/17 The following prescriptions were given: Oxycodone [Oxyir] 5 - 10 mg PO Q4H PRN PRN 7 Days #28 tab PRN Reason: Mod-Severe Pain (4-10/10) Ibuprofen [Motrin] 800 mg PO TID PRN PRN #30 tab PRN Reason: pain or cramping Ferrous Gluconate 325 mg PO BIDCM #60 tab Follow-Up: Call to make an appointment with your doctor for an incision check in 1-2 weeks. You will also need a 6 week post- follow up appointment. Please Follow Up With: Teena Yañez MD When: one week Primary Care Physician: Care Physician,No Primary [Primary Care Provider] - Proposed Discharge Date: 05/07/17 05/06/17906 <Electronically signed by Fuentes Del Rosario MD> Date Fuentes Del Rosario MD CC: No Primary Care Physician; Jon Pisano D.O. CBC W/DIFF, AUTOMATED Collected: 05/06/2017 Status: F Source: [facility] 5:30 AM [facility] REPOSITORY TYPE CODE TESTS RESULT OUT OF RANGE REFERENCE UNITS LAB L100.1000 4.4-11.0 K/mm3 High WBC 13.3 LAB L100.1200 4.2-5.4 M/mm3 Low RBC 3.02 LAB L100.1300 12.0-15.0 g/dl Low HGB 8.7 LAB L100.1400 37-47 % Low HCT 25.9 LAB L100.1500 81-99 fL Normal MCV 85.8 LAB L100.1600 27.0-32.0 pg Normal MCH 28.8 LAB L100.1700 32-36 g/gl Normal MCHC 33.6 LAB L100.1810 11.6-14.6 % High RDW CV 15.9 LAB L100.1820 35.1-43.9 fl High RDW SD 49.6 LAB L100.1900 150-450 K/mm3 Normal PLT 180 LAB L100.2000 6.2-12.0 fl Normal MPV 9.1 LAB L100.2100 47-70 % High NEUT% 81.2 LAB L100.2200 19-41 % Low LY% 10.0 LAB L100.2300 0-10 % Normal MONO% 5.2 LAB L100.2400 0-5 % Normal EO% 2.0 LAB L100.2500 0-1 % Normal BASO% 0.2 LAB L100.2550 0.0-0.9 % High IM GRAN % 1.400 Result Comment: IG% - Immature Granulocytes (promyelocytes, myelocytes and metamyelocytes) > 1% indicates that a LEFT SHIFT is Present. LAB L100.2620 2.0-7.7 X10 3/uL High Absolute Neut 10.8 LAB L100.2720 0.83-4.51 X10 3/ul Normal Absolute Lymph 1.33 Performed By: #### L100.0100 #### [facility] [address] [place], [address] BASIC METABOLIC Collected: 05/06/2017 Status: F Source: [facility] PROFILE ([facility]) 5:30 AM [facility] REPOSITORY TYPE CODE TESTS RESULT OUT OF RANGE REFERENCE UNITS LAB L501.0100 74-106 mg/dL Normal GLU 93 Result Comment: Please note revised GLUCOSE reference range effective 2017. LAB L501.1000 7-18 mg/dL Normal BUN 10 LAB L501.1100 0.55-1.02 mg/dL Low CREAT,SERUM 0.39 Result Comment: The validity of the calculated GFR AND GFRAA in patients over 70 years has not been determined. Clinical correlation is essential. LAB L501.1110 >60 mL/min Normal EST GFR 209 Result Comment: Non- GFR Calc LAB L501.1115 >60 mL/min Normal EST GFR - AA 252 Result Comment: GFR Calc LAB L501.1255 ml/min Normal Estimated CRCL 154.26 LAB L501.1300 10-20 RATIO High BUN/CRE 25.8 LAB L501.2200 8.5-10 mg/dL Low .1 CA 7.8 LAB L501.5300 136-14 mmol/L 5 NA Normal 137 LAB L501.5600 3.5-5. mmol/L Low 1 K 3.0 LAB L501.5900 98-107 mmol/L CL Normal 102 LAB L501.6100 21.0-3 mmol/L 2.0 CO2 Normal 26.0 LAB L501.6200 5-15 GAP Normal 9 Performed By: #### L500.2500 #### [facility] [place], [address] PROTHROMBIN TIME W/INR Collected: 05/06/2017 Status: F Source: [facility] 5:30 AM [facility] REPOSITORY TYPE CODE TESTS RESULT OUT OF RANGE REFERENCE UNITS LAB L300.4150 11.7-14.9 SECONDS High PROTIME 15.5 LAB L300.4200 Normal INR 1.3 Performed By: #### L300.3900 #### [facility] [address] [place] [address], [address] HH, HEMOGLOBIN AND Collected: 05/05/2017 Status: F Source: [facility] HEMATOCRIT 11:30 AM [facility] REPOSITORY TYPE CODE TESTS RESULT OUT OF RANGE REFERENCE UNITS LAB L100.1300 12.0-15.0 g/dl Low HGB 8.7 LAB L100.1400 37-47 % Low HCT 25.3 Performed By: #### L100.0600 #### [facility] [place], [address] CONSULTATION Observed: 05/05/2017 Status: F Source: [facility] 7:06 AM [facility] REPOSITORY [facility] Medical Records Department [address] [place] [address] Consultation 02/16/18 0943 MR#: [id number] Acct: [id number] Name: ADONIS HODGSON Rep #: [id number] : 1990 26 From: Jon Pisano DO PCP: Care Physician, No Primary Status: ADM IN Y Location: ICU [place] [address] Reason for Consult Date of Consultation: 05/04/17 Reason for Consultation: hemorrhage History of Present Illness: The patient is a 26-year-old female, with a history as outlined below, who presented on May 03 in labor for planned delivery. Although there were initial plans for vaginal delivery, there was a lack of progression in dilation even with the use of Pitocin augmentation. Therefore, the decision was made to take the patient for a section. During the participant administrator hours of May 04, the patient underwent planned section with 1.4 L of blood loss noted. Short time following the completion of the the patient began to experience heavy vaginal bleeding became significantly tachycardic. The patient subsequently underwent a D AND C with Bakri balloon placement. There was concern for potential endometritis given the presence of the mucopurulent amniotic fluid noted at the time of rupture during section. Unfortunately, there was no change in the patient clinically and she was therefore taken for exploratory laparotomy. Throughout the participant administrator hours, she received a total of 4 units of packed red blood cells, along with 4 units of FFP. Postoperatively, she was transferred to the medical intensive care unit for ongoing management. Past Medical History Allergies latex Allergy (Verified 05/03/17 03:30) Rash codeine Adverse Reaction (Verified 05/03/17 03:30) Vomiting Home Medications: Ambulatory Orders Medication Instructions Recorded Vits [Prenatabs FA] 1 tablet PO DAILY 05/03/17 Smoking Status: Never smoker Review of Systems Constitutional: Denies: Chills, Fever, Weight Change HEENT: Denies: Head Aches, Sinus Congestion, Sinus Drainage Cardiovascular: Denies: Chest Pain, Palpitations Respiratory: Denies: Cough, Shortness of breath at rest, Sputum production Gastrointestinal: Reports: Abdominal Pain. Denies: Nausea, Vomiting Genitourinary: Denies: Dysuria Musculoskeletal: Denies: Joint Pain, Joint Tenderness Skin: Denies: Rash, Wounds Neurological: Denies: Numbness, Tingling, Focal weakness Psychiatric: Denies: Anxiety, Depression, Homicidal Ideations, Suicidal Ideations Hematologic/ Lymphatic: Reports: Hx of blood transfusion Patient Problems: Active and Suspected Problems 40 weeks gestation of (Acute) Delivery of by section (Acute) hemorrhage (Acute) Endometritis (Acute) Objective: The patient's most recent lab work, culture data and imaging studies have all been personally reviewed. - Physical Exam General: Alert, Oriented x3, Cooperative, No apparent distress HEENT: Atraumatic, PERRLA, Normocephalic Oral: No Gingival or Mucosal Lesions/ Ulcerations, Dry Mucosa Neck: Supple, No Nodes, Trachea Midline Lungs: No rhonchi, No wheeze, No rales, Diminished Cardiovascular: Normal S1, Normal S2, No murmurs, Tachycardic Abdomen: Soft, Hypoactive Bowel Sounds, Tender, - - Bakri balloon remains in place. LISET drain in place Extremities: No clubbing, No cyanosis, - - Trace lower extremity edema Skin: Incision - Dressed, C/D/I Musculoskeletal: No Muscle Wasting Lymphatic: No Cervical, Supraclavicular, or Inguinal Adenopathy Neurological: Neuro grossly intact Psych/Mental Status: Normal Affect, Appropriate Vital Signs Temp Pulse Resp BP Pulse Ox 98.7 F 125 H 19 H 91/61 98 05/04/17 08:00 05/04/17 08:00 05/04/17 08:00 05/04/17 08:00 05/04/17 09:31 Oxygen Flow Rate 2 Oxygen Delivery Method Nasal Cannula Weight: 227 lb 1.218 oz Body Mass Index (BMI) 44.3 Intake and Output for Last 24 Hours Intake Total 5320 / 5320 4250.6 / 4250.6 Output Total 2550 / 2550 4690 / 4690 Balance 2770 / 2770 -439.4 / -439.4 Laboratory Tests Past 24 Hrs WBC 20.0 H RBC 2.73 L Hgb 8.2 L Hct 24.8 L MCV 90.8 MCH 30.0 WBC RBC Hgb Hct MCV MCH MCHC RDW WBC 10.7 RBC 2.51 L Hgb 7.2 L Hct 21.4 L MCV 85.3 MCH 28.7 MCHC 33.6 RDW 14.9 H RDW Differential 46.3 H Clinical Impression(s) from Imaging Studies Pelvis X-Ray 05/04/17 03:40 IMPRESSION: Catheters as outlined above. No other foreign bodies noted. Electronically Signed: Gila Vargas MD at 4:41 EST , Service support , Assessment/Plan Active and Suspected Problems 40 weeks gestation of (Acute) Delivery of by section (Acute) hemorrhage (Acute) Endometritis (Acute) RECOMMENDATIONS: 1. Continue to monitor serial blood counts. Hemoglobin again fell to 7.2 g/dL this morning. Therefore, the patient will receive an additional 2 units of packed red blood cells. 2. Recheck H AND H 1 hour posttransfusion completion. 3. Continue antibiotics per OB 4. Clear liquid diet per OB. No need for supplemental IV fluids for now. 5. Oxycodone for pain 6. Wean supplemental oxygen to maintain saturations at or above 90%. 7. Encourage incentive spirometer use IMPRESSIONS: 1. Acute blood loss anemia secondary to hemorrhage Continue to monitor blood counts regularly. Will transfuse 2 units of additional packed red blood cells, given that the patient's hemoglobin was noted be 7.2 g/dL this morning. Check H AND H 1 hour post transfusion. 2. Thrombocytopenia Likely consumptive in nature secondary to hemorrhage. No indication for transfusion at this time. We will continue to monitor. 3. Lactic acidemia Secondary to #1. Plan to repeat serum lactate level in 6 hours. Continue supplemental IV fluids and blood product administration in order to maintain hemodynamic stability. This note was generated with [employer] dictation software. It may contain incorrect words, spelling, and punctuation that were not noted in checking the note before signing. Code Visit Inpatient E AND M: 23534 Init Hosp L3 05/05/17 0706 <Electronically signed by Jon Pisano DO> Date Jon Pisano DO Cosigner Signature (if applicable): Date CC: No Primary Care Physician; Jon Pisano D.O. Signed HH, HEMOGLOBIN AND Collected: 05/05/2017 Status: F Source: [facility] HEMATOCRIT 3:40 AM [facility] REPOSITORY TYPE CODE TESTS RESULT OUT OF RANGE REFERENCE UNITS LAB L100.1300 12.0-15.0 g/dl Low HGB 7.9 LAB L100.1400 37-47 % Low HCT 23.2 Performed By: #### L100.0600 #### [facility] [address] [place], [address] HH, HEMOGLOBIN AND Collected: 05/04/2017 Status: F Source: [facility] HEMATOCRIT 9:35 PM [facility] REPOSITORY TYPE CODE TESTS RESULT OUT OF RANGE REFERENCE UNITS LAB L100.1300 12.0-15.0 g/dl Low HGB 8.6 LAB L100.1400 37-47 % Low HCT 24.6 Performed By: #### L100.0600 #### [facility] [address] [place], [address] LACTIC ACID Collected: 05/04/2017 Status: F Source: [facility]ONDA 5:30 PM [facility] REPOSITORY TYPE CODE TESTS RESULT OUT OF RANGE REFERENCE UNITS LAB L503.6005 0.4-2.0 mmol/L Normal LACTIC ACID 1.7 Performed By: #### L503.6005 #### [facility] [address] [place], [address] HH, HEMOGLOBIN AND Collected: 05/04/2017 Status: F Source: [facility] HEMATOCRIT 3:30 PM [facility] REPOSITORY TYPE CODE TESTS RESULT OUT OF RANGE REFERENCE UNITS LAB L100.1300 12.0-15.0 g/dl Low HGB 9.0 LAB L100.1400 37-47 % Low HCT 26.1 Performed By: #### L100.0600 #### [facility] [address] [place], [address] LACTIC ACID Collected: 05/04/2017 Status: F Source: [facility]ONDA 12:15 PM [facility] REPOSITORY Order Comment: Yes/No query for Sepsis Lactate Rule Y TYPE CODE TESTS RESULT OUT OF REFERENCE UNITS RANGE LAB L503.6005 0.4-2.0 mmol/L High LACTIC ACID 3.2 Result Comment: Critical Result(s) Called at: 13:20:20 05/04/2017 by: Javi Baer to rené herrmann Performed By: #### L503.6005 #### [facility] [address] [place], [address] RH NEGATIVE MOM Collected: 05/04/2017 Status: F Source: [facility] WORKUP 10:05 AM [facility] REPOSITORY Order Comment: Baby's Full Name matias hodgson Baby's Bracelet # [id number] Baby's MR # [id number] TYPE CODE TESTS RESULT OUT OF RANGE REFERENCE UNITS LAB B101.0425 A Normal MOM'S ABO NEGATIVE RH LAB B101.0450 Normal MOM'S ABS NEGATIVE LAB B101.0500 NEGATIVE Normal NEGATIVE SCREEN LAB B101.0950 Normal BABY'S PRESUMED RH ABO RH POS LAB B101.1000 NEGATIVE Normal BABY'S SIRENA Result Comment: UNKNOWN Performed By: #### B101.0300 #### [facility] [address] [place], [address] RHOGAM Collected: 05/04/2017 Status: F Source: RHONDA 10:05 AM [facility] REPOSITORY TYPE CODE TESTS RESULT OUT OF REFERENCE UNITS RANGE LAB U100.2500 [id number] TRANSFUSED PRODUCT: Rho(D) Immune Globulin RhoGam COUNT: 1 Performed By: #### U100.2500 #### [facility] - refer to report for specific site LACTIC ACID Collected: 05/04/2017 Status: F Source: RHONDA 8:20 AM [facility] REPOSITORY Order Comment: Yes/No query for Sepsis Lactate Rule Y TYPE CODE TESTS RESULT OUT OF REFERENCE UNITS RANGE LAB L503.6005 0.4-2.0 mmol/L High LACTIC ACID 3.8 Result Comment: Critical Result(s) Called at: 09:11:20 05/04/2017 by: Javi Baer TO VINITA YOUSIF Performed By: #### L503.6005 #### [facility] [address] [place], [address] PROTHROMBIN TIME W/INR Collected: 05/04/2017 Status: F Source: [place] 8:15 AM [facility] REPOSITORY TYPE CODE TESTS RESULT OUT OF RANGE REFERENCE UNITS LAB L300.4150 11.7-14.9 SECONDS High PROTIME 16.2 LAB L300.4200 Normal INR 1.4 Performed By: #### L300.3900, L300.4310, L300.4700 #### [facility] [address] [place], [address] PARTIAL THROMBOPLAST Collected: 05/04/2017 Status: F Source: [place] TIME 8:15 AM [facility] REPOSITORY TYPE CODE TESTS RESULT OUT OF RANGE REFERENCE UNITS LAB L300.4310 24.1-36.2 Seconds Normal PTT 30.6 Performed By: #### L300.3900, L300.4310, L300.4700 #### [facility] [address] [place], [address] FIBRINOGEN Collected: 05/04/2017 Status: F Source: [place] 8:15 AM [facility] REPOSITORY TYPE CODE TESTS RESULT OUT OF RANGE REFERENCE UNITS LAB L300.4700 203-444 mg/dl Normal FIB 376 Performed By: #### L300.3900, L300.4310, L300.4700 #### [facility] [address] [place], [address] CBC W/DIFF, AUTOMATED Collected: 05/04/2017 Status: C Source: [place] 8:15 AM [facility] REPOSITORY Order Comment: Diagnosis: Post-op anemia, myometrial hematoma Order Date: 12/03/16 TYPE CODE TESTS RESULT OUT OF RANGE REFERENCE UNITS LAB L100.1000 4.4-11.0 K/mm3 Normal WBC 10.7 LAB L100.1200 4.2-5.4 M/mm3 Low RBC 2.51 LAB L100.1300 12.0-15.0 g/dl Low HGB 7.2 LAB L100.1400 37-47 % Low HCT 21.4 LAB L100.1500 81-99 fL Normal MCV 85.3 LAB L100.1600 27.0-32.0 pg Normal MCH 28.7 LAB L100.1700 32-36 g/gl Normal MCHC 33.6 LAB L100.1810 11.6-14.6 % High RDW CV 14.9 LAB L100.1820 35.1-43.9 fl High RDW SD 46.3 LAB L100.1900 150-450 K/mm3 Low PLT 143 LAB L100.2000 6.2-12.0 fl Normal MPV 9.1 LAB L100.2620 2.0-7.7 X10 3/uL Normal Absolute Neut 7.7 Result Comment: AMENDED REPORT 05/04/17900 Absolute Neut previously reported as: 8.9 H X10^3/uL LAB L100.2720 0.83-4.51 X10 3/ul Low Absolute Lymph 0.75 Result Comment: AMENDED REPORT 05/04/17900 Absolute Lymph previously reported as: 0.90 X10^3/ul LAB L100.3100 MANUAL DIFF CELLS Normal COUNTED 100 LAB L100.3200 47-70 % SEGS 62 Normal LAB L100.3300 0-5 % High BAND 10 LAB L100.3400 0-1 % High META 6 LAB L100.3500 0-0 High MYELO 1 LAB L100.3800 19-41 % Low LYMPH 7 LAB L100.3900 0-10 % 9 Normal MONOCYTE LAB L100.9900 PATH Normal REV Reviewed Result Comment: Normocytic anemia. Clinical correlation necessary. Matheus Echavarria M.D. 05/07/17 AMENDED REPORT 05/07/17 1012 PATH REV previously reported as: May foll Performed By: #### L100.0100 #### [facility] [address] [place], [address] GLUCOSE Collected: 05/04/2017 Status: F Source: [place] 8:15 AM [facility] REPOSITORY TYPE CODE TESTS RESULT OUT OF RANGE REFERENCE UNITS LAB L501.0100 74-106 mg/dL High GLU 116 Result Comment: Fasting Glucose result from 100 to 125 mg/dL suggests IMPAIRED HOMEOSTASIS per A.D.A. criteria. Please note revised GLUCOSE reference range effective 2017. Performed By: #### L501.0100, L501.1000, L501.1100, L501.1300, L501.5300, L501.5600, L501.5900, L501.6100, L501.6200 #### [facility] [address] [place], [place], [address] #### L3100.9600 #### [facility] (refer to report for specific site) refer to report for address and phone number BUN Collected: 05/04/2017 Status: F Source: [place] 8:15 AM [facility] REPOSITORY TYPE CODE TESTS RESULT OUT OF RANGE REFERENCE UNITS LAB L501.1000 7-18 mg/dL Low BUN 5 Performed By: #### L501.0100, L501.1000, L501.1100, L501.1300, L501.5300, L501.5600, L501.5900, L501.6100, L501.6200 #### [facility] [address] [place] [address], [id number] #### L3100.9600 #### [facility] (refer to report for specific site) refer to report for address and phone number CREATININE, SERUM Collected: 05/04/2017 Status: F Source: [place] 8:15 AM [facility] REPOSITORY TYPE CODE TESTS RESULT OUT OF RANGE REFERENCE UNITS LAB L501.1100 0.55-1.02 mg/dL Low 0.44 CREAT,SERUM Result Comment: The validity of the calculated GFR AND GFRAA in patients over 70 years has not been determined. Clinical correlation is essential. Performed By: #### L501.0100, L501.1000, L501.1100, L501.1300, L501.5300, L501.5600, L501.5900, L501.6100, L501.6200 #### [facility] [address] [place] [address], [id number] #### L3100.9600 #### [facility] (refer to report for specific site) refer to report for address and phone number BUN/CREAT RATIO Collected: 05/04/2017 Status: F Source: [facility] 8:15 AM [facility] REPOSITORY TYPE CODE TESTS RESULT OUT OF RANGE REFERENCE UNITS LAB L501.1300 10-20 RATIO Normal BUN/CRE 11.2 Performed By: #### L501.0100, L501.1000, L501.1100, L501.1300, L501.5300, L501.5600, L501.5900, L501.6100, L501.6200 #### [facility] [address] [place], [address] #### L3100.9600 #### [facility] (refer to report for specific site) refer to report for address and phone number SODIUM LEVEL Collected: 05/04/2017 Status: F Source: [facility] 8:15 AM [facility] REPOSITORY TYPE CODE TESTS RESULT OUT OF RANGE REFERENCE UNITS LAB L501.5300 136-145 mmol/L Normal NA 138 Performed By: #### L501.0100, L501.1000, L501.1100, L501.1300, L501.5300, L501.5600, L501.5900, L501.6100, L501.6200 #### [facility] [place], [address] #### L3100.9600 #### [facility] (refer to report for specific site) refer to report for address and phone number POTASSIUM Collected: 05/04/2017 Status: F Source: [facility] 8:15 AM [facility] REPOSITORY TYPE CODE TESTS RESULT OUT OF RANGE REFERENCE UNITS LAB L501.5600 3.5-5.1 mmol/L Normal K 3.7 Performed By: #### L501.0100, L501.1000, L501.1100, L501.1300, L501.5300, L501.5600, L501.5900, L501.6100, L501.6200 #### [facility] [address] [facility] [place], [place], [id number] #### L3100.9600 #### [facility] (refer to report for specific site) refer to report for address and phone number CHLORIDE Collected: 05/04/2017 Status: F Source: [place] 8:15 AM [facility] REPOSITORY TYPE CODE TESTS RESULT OUT OF RANGE REFERENCE UNITS LAB L501.5900 98-107 mmol/L Normal CL 106 Performed By: #### L501.0100, L501.1000, L501.1100, L501.1300, L501.5300, L501.5600, L501.5900, L501.6100, L501.6200 #### [facility] [address] [place], [address] #### L3100.9600 #### [facility] (refer to report for specific site) refer to report for address and phone number CARBON DIOXIDE Collected: 05/04/2017 Status: F Source: [facility] 8:15 AM [facility] REPOSITORY TYPE CODE TESTS RESULT OUT OF RANGE REFERENCE UNITS LAB L501.6100 21.0-32.0 mmol/L Normal CO2 21.0 Performed By: #### L501.0100, L501.1000, L501.1100, L501.1300, L501.5300, L501.5600, L501.5900, L501.6100, L501.6200 #### [facility] [place], [address] #### L3100.9600 #### [facility] (refer to report for specific site) refer to report for address and phone number ANION GAP Collected: 05/04/2017 Status: F Source: [place] 8:15 AM [facility] REPOSITORY TYPE CODE TESTS RESULT OUT OF RANGE REFERENCE UNITS LAB L501.6200 5-15 Normal GAP 11 Performed By: #### L501.0100, L501.1000, L501.1100, L501.1300, L501.5300, L501.5600, L501.5900, L501.6100, L501.6200 #### [facility] [address] [place], [address] #### L3100.9600 #### [facility] (refer to report for specific site) refer to report for address and phone number CALCIUM IONIZED Collected: 05/04/2017 Status: F Source: [facility] 8:15 AM [facility] REPOSITORY TYPE CODE TESTS RESULT OUT OF RANGE REFERENCE UNITS LAB L3100.9600 4.5-5.6 mg/dL Normal IONIZED CA 5.4 Result Comment: Performed at: [facility] [id number] Secretary Bookkeeper: Jerman Tovar PhD, Phone: [phone] Performed By: #### L501.0100, L501.1000, L501.1100, L501.1300, L501.5300, L501.5600, L501.5900, L501.6100, L501.6200 #### [facility] [address] [place], [place], [id number] #### L3100.9600 #### [facility] (refer to report for specific site) refer to report for address and phone number M R STAPH AUREUS Collected: 05/04/2017 Status: F Source: [place] DNA BY PCR 6:00 AM [facility] REPOSITORY TYPE CODE TESTS RESULT OUT OF RANGE REFERENCE UNITS LAB L8200.1100 Negative Normal MRSA Negative RESULT Performed By: #### L8200.1000 #### [facility] [address] [facility] [place], [place], [id number] PATHOLOGY SPECIMEN OB Collected: 05/04/2017 Status: F Source: [facility] 5:31 AM [facility] REPOSITORY Order Comment: Reason for Laboratory Test Placenta for Lab studies Send Specimen For (Specify): Studies @ [facility] Lab:Routine Time of Procedure: 100 Date of Procedure: 05/04/17 Reason specimen being sent to pathology (Hx/complications): 40wga, prolonged labor Type of specimen: Placenta Type of procedure performed: Primary Section TYPE CODE TESTS RESULT OUT OF RANGE REFERENCE UNITS LAB L350.1800 SEE Normal PATH. PATHOLOGY Spec. OB REPORT Result Comment: Specimen submitted to Anatomical Pathology Department for testing. Performed By: #### L350.1800 #### [facility] [address] [place], [place], [address] OPERATIVE REPORT Observed: 05/04/2017 Status: F Source: [facility] 4:35 AM [facility] REPOSITORY [facility] Medical Records Department [address] [place] [address] Operative Report 05/04/17 0104 MR#: [id number] Acct: [id number] Name: ADONIS HODGSON Rep #: [id number] : 1990 From: Teena Mejia MD PCP: Care Physician, No Primary Status: ADM IN Y Location: ICU ICU05-1 - Problem List (1) 40 weeks gestation of Status: Acute (2) Delivery of by section Status: Acute Delivery Classification: HECTOR Final ANDREA: 05/03/17 Final ANDREA Source: US <20 weeks Gestational age: 40 Weeks and 1 Days Indications: Ms. Hodgson is a 26-year-old 1 para 0 at 40 weeks gestational age admitted in labor who progressed to 8-9 cm dilatation with Pitocin augmentation with no further progression of dilatation. She was counseled regarding risks, benefits, indications and opted to proceed with section for arrest of dilation. Informed consent was obtained prior to procedure. Indications for : Prolonged Active Phase, - - Arrest of dilation Description of Procedure: The patient was taken to the operating room and spinal analgesia was administered. She is placed in a dorsal supine position with left lateral tilt. The perineum and abdomen were prepped and draped in sterile fashion. And the spinal was found to be adequate. A Pfannenstiel incision was made using a scalpel and brought down to incise the subcutaneous tissue and rectus fascia at the midline. Subcutaneous tissue was bluntly dissected off the fascia laterally. The fascial incision was dissected laterally and cephalad using curved Tucker scissors. The superior leaflet of the rectus fascia was grasped using Manuel clamps and bluntly dissected and sharply dissected from the underlying rectus muscle. In a similar fashion the inferior rectus fascia was dissected from the underlying muscle. The rectus muscles were bluntly at the midline. The peritoneum was identified and entered [sharply]. Peritoneal incision was extended sharply. The bladder blade was placed into the abdomen and the vesicouterine peritoneal fold identified. The fold was incised and a bladder flap created. Bladder blade was then repositioned to the abdomen. A low transverse hysterotomy was made using the [Metzenbaum scissors] to level of the membranes. The hysterotomy was extended bluntly cephalad and caudad. The membranes were then ruptured revealing questionably light meconium versus mucopurulent fluid. The head was elevated and brought to the level of the hysterotomy and the delivered revealing vigorous [male] infant. The cord was doubly clamped and cut. The was passed to awaiting [nursery personnel]. The placenta was manually removed from the uterus following cord avulsion and appeared intact on inspection. The uterus was rubberized cleared of debris. There was difficulty achieving visualization initially due to blood loss from the hysterotomy and mild uterine atony. A single dose of IM Methergine was administered in addition to IV pitocin. The hysterotomy was then repaired using 0 Vicryl running lock suture then returned to the abdomen. However the hysterotomy appeared mal- approximated with the abdominal peritoneum. Hysterotomy stitch was removed. The bladder blade was then repositioned to the abdomen. And the inferior edges of the hysterotomy were grasped. The hysterotomy was again repaired using 0 Vicryl running lock suture with synagogue of normal anatomy. a second imbricating layer was also placed for additional hemostasis. A figure of 8 stitch was placed at the left hysterotomy for additional hemostasis with hemostasis attained. Paracolic gutters were packed in the hysterotomy inspected for 2 minutes with excellent hemostasis. Sean was placed for continued hemostasis along denuded peritoneum. And the packing laps are removed. The bladder blade was removed. The anterior cul-de-sac was cleared of debris. The peritoneum was reapproximated using 2-0 Vicryl running suture. The rectus fascia was closed using 0 Vicryl running suture. The subcutaneous tissue was sponge irrigated and small capillary bleeding controlled using the Bovie device. The subcutaneous tissue was reapproximated using 2-0 Vicryl. The skin was closed using 4-0 Monocryl subcuticularly by the [employer] under my supervision. This was followed by Cavdutch and a Mepilex occlusive dressing was placed over the incision. The fundus was firm. The patient was then transferred to the recovery room without complication. Sponge, instrument, and needle counts were correct 2. weight 4254g Amniotic Membrane Rupture Type: Spontaneous Amniotic Fluid Description: Moderate meconium Placenta Disposition: [facility] Specimen(s) sent to pathology: placenta Drain: Franco to straight drain Fluids Replaced: 1500 mL Cord Entanglement: None Nuchal Cord Compression: Without compression Cord Vessel Description: 3 Vessels Esitmated Blood Loss (ml): 1400 Gender: Male (1 minute): 9 (5 minute): 9 Delayed cord clamping: Yes Pre-op Antibiotic Given: Ancef 2 grams IV x1 Pt instructed on risks of surgery: Bleeding, Infection, Injury to surrounding structure(s) including bowel and bladder, - - Possible hysterectomy - Admit VTE Documentation VTE Present on Admission: No VTE Mechan Device Prophylaxis: SCD's VTE Pharm Prophylaxis ordered?: No 05/04/17 0435 <Electronically signed by Teena Yañez MD> Date Teena Yañez MD CC: No Primary Care Physician; Teena Yañez MD Signed PELVIS 1 OR 2 VIEWS Observed: 05/04/2017 Status: F Source: [facility] 3:56 AM [facility] REPOSITORY [facility] Imaging Services [address] [place] [address] Pelvis 1 or 2 Views MR#: [id number] Acct: [id number] Name: ADONIS HODGSON Rep #: [id number] : 1990 F 26 From: Gila Vargas MD PCP: Care Physician, No Primary Status: ADM IN Study: Pelvis 1 or 2 Views Date of Exam: 05/04/17 Exam# [id number] Ordering Dr: Fuentes Del Rosario MD STUDY: X-RAY - PELVIS REASON FOR EXAM: Female, 26 years old. Question foreign body, no confluent sponges or instrumentation done prior to emergent . TECHNIQUE: One view of the pelvis was obtained. COMPARISON: None. FINDINGS: There is a catheter superimposed over the midline urinary bladder level and a catheter coiling over the mid and right pelvis possible a drain. No other radiopaque densities detected. Normal visualized soft tissue structures. Normal bilateral iliac wings, sacroiliac joints and visualized sacrum. Normal visualized bilateral superior and inferior pubic rami. Normal pubic symphysis. Normal ischial tuberosities. Normal visualized right femoral head. Normal right acetabulum. Normal right hip joint. Normal visualized left femoral head. Normal left acetabulum. Normal left hip joint. RAD/Pelvis 1 or 2 Views IMPRESSION: Catheters as outlined above. No other foreign bodies noted. Electronically Signed: Gila Vargas MD at 4:41 EST , Service support , CC: No Primary Care Physician; Fuentes Del Rosario MD Auto Claims Adjuster: Signed CBC-COMPLETE BLOOD CNT Collected: 05/04/2017 Status: F Source: RHONDA NO DIFF 3:32 AM [facility] REPOSITORY Order Comment: PATIENT RECEIVING BLOOD PRODUCTS TYPE CODE TESTS RESULT OUT OF RANGE REFERENCE UNITS LAB L100.1000 4.4-11.0 K/mm3 High WBC 13.8 LAB L100.1200 4.2-5.4 M/mm3 Low RBC 3.07 LAB L100.1300 12.0-15.0 g/dl Low HGB 9.2 LAB L100.1400 37-47 % Low HCT 27.3 LAB L100.1500 81-99 fL Normal MCV 88.9 LAB L100.1600 27.0-32.0 pg Normal MCH 30.0 LAB L100.1700 32-36 g/gl Normal MCHC 33.7 LAB L100.1810 11.6-14.6 % Normal RDW CV 14.5 LAB L100.1820 35.1-43.9 fl High RDW SD 45.2 LAB L100.1900 150-450 K/mm3 Normal PLT 188 LAB L100.2000 6.2-12.0 fl Normal MPV 9.8 Performed By: #### L100.0500 #### [facility] [address], [address] CBC W/DIFF, AUTOMATED Collected: 05/04/2017 Status: F Source: RHONDA 2:50 AM [facility] REPOSITORY Order Comment: PATIENT RECEIVING BLOOD PRODUCTS. TYPE CODE TESTS RESULT OUT OF RANGE REFERENCE UNITS LAB L100.1000 4.4-11.0 K/mm3 High WBC 17.1 LAB L100.1200 4.2-5.4 M/mm3 Low RBC 2.73 LAB L100.1300 12.0-15.0 g/dl Low HGB 7.9 LAB L100.1400 37-47 % Low HCT 23.9 LAB L100.1500 81-99 fL Normal MCV 87.5 LAB L100.1600 27.0-32.0 pg Normal MCH 28.9 LAB L100.1700 32-36 g/gl Normal MCHC 33.1 LAB L100.1810 11.6-14.6 % High RDW CV 15.2 LAB L100.1820 35.1-43.9 fl High RDW SD 48.6 LAB L100.1900 150-450 K/mm3 Normal PLT 221 LAB L100.2000 6.2-12.0 fl Normal MPV 9.2 LAB L100.2100 47-70 % High NEUT% 84.6 LAB L100.2200 19-41 % Low LY% 7.6 LAB L100.2300 0-10 % Normal MONO% 7.1 LAB L100.2400 0-5 % Normal EO% 0.1 LAB L100.2500 0-1 % Normal BASO% 0.1 LAB L100.2550 0.0-0.9 % Normal IM GRAN % 0.500 Result Comment: IG% - Immature Granulocytes (promyelocytes, myelocytes and metamyelocytes) > 1% indicates that a LEFT SHIFT is Present. LAB L100.2620 2.0-7.7 X10 3/uL High Absolute Neut 14.5 LAB L100.2720 0.83-4.51 X10 3/ul Normal Absolute Lymph 1.30 Performed By: #### L100.0100, L300.3900, L300.4310, L300.4700 #### [facility] [address] [place], [address] PROTHROMBIN TIME W/INR Collected: 05/04/2017 Status: F Source: RHONDA 2:50 AM [facility] REPOSITORY TYPE CODE TESTS RESULT OUT OF RANGE REFERENCE UNITS LAB L300.4150 11.7-14.9 SECONDS High PROTIME 18.1 LAB L300.4200 Normal INR 1.6 Performed By: #### L100.0100, L300.3900, L300.4310, L300.4700 #### [facility] [address] [place], [address] PARTIAL THROMBOPLAST Collected: 05/04/2017 Status: F Source: [place] TIME 2:50 AM [facility] REPOSITORY TYPE CODE TESTS RESULT OUT OF RANGE REFERENCE UNITS LAB L300.4310 24.1-36.2 Seconds Normal PTT 31.5 Performed By: #### L100.0100, L300.3900, L300.4310, L300.4700 #### [facility] [address] [place], [address] FIBRINOGEN Collected: 05/04/2017 Status: F Source: [place] 2:50 AM [facility] REPOSITORY TYPE CODE TESTS RESULT OUT OF RANGE REFERENCE UNITS LAB L300.4700 203-444 mg/dl Normal FIB 313 Performed By: #### L100.0100, L300.3900, L300.4310, L300.4700 #### [facility] [address] [place], [address] LDH Collected: 05/04/2017 Status: F Source: [place] 2:50 AM [facility] REPOSITORY TYPE CODE TESTS RESULT OUT OF RANGE REFERENCE UNITS LAB L504.2610 84-246 U/L Normal LDH 201 Performed By: #### L504.2610 #### [facility] [address] [place], [address] COMPREHENSIVE METABOLIC Collected: 05/04/2017 Status: F Source: [place] PROFIL 2:50 AM [facility] REPOSITORY TYPE CODE TESTS RESULT OUT OF RANGE REFERENCE UNITS LAB L501.0100 74-106 mg/dL High GLU 134 Result Comment: Fasting Glucose result greater than or equal to 126 mg/dL suggests DIABETES MELLITUS per A.D.A. criteria. Please note revised GLUCOSE reference range effective 2017. LAB L501.1000 7-18 mg/dL Low BUN 5 LAB L501.1100 0.55-1.02 mg/dL Low CREAT,SERUM 0.44 Result Comment: The validity of the calculated GFR AND GFRAA in patients over 70 years has not been determined. Clinical correlation is essential. LAB L501.1110 >60 mL/min Normal EST GFR 178 Result Comment: Non- GFR Calc LAB L501.1115 >60 mL/min Normal EST GFR - AA 215 Result Comment: GFR Calc LAB L501.1255 ml/min Normal Estimated CRCL 143.64 LAB L501.1300 10-20 RATIO BUN/CRE Normal 11.2 LAB L501.1500 6.4-8. g/dL Low 2 T PROT 3.1 LAB L501.1800 3.2-5. g/dL Low 0 ALB 1.1 LAB L501.1950 2.2-4. g/dL Low 2 GLOB 2.0 LAB L501.2000 0.9-2. RATIO Low 4 A/G 0.6 LAB L501.2200 8.5-10 mg/dL Low .1 CA alert 6.0 Result Comment: Critical Result(s) Called at: 04:24:55 05/04/2017 by: LEELA RAVI RN WP LAB L501.4100 15-37 U/L Low AST 14 LAB L501.4305 45-117 U/L Normal ALK P 66 LAB L501.4405 13-56 U/L Low ALT 8 Result Comment: Please note revised ALT reference range effective 2017. LAB L501.4600 0.20-1.00 mg/dL Normal T BILI 0.70 LAB L501.5300 136-145 mmol/L Normal NA 138 LAB L501.5600 3.5-5.1 mmol/L Normal K 4.7 LAB L501.5900 98-107 mmol/L High CL 109 LAB L501.6100 21.0-32.0 mmol/L Low CO2 19.0 LAB L501.6200 5-15 Normal GAP 10 Performed By: #### L500.4050 #### [facility] [address] [place], [address] CBC-COMPLETE BLOOD CNT Collected: 05/04/2017 Status: F Source: RHONDA NO DIFF 1:25 AM [facility] REPOSITORY TYPE CODE TESTS RESULT OUT OF RANGE REFERENCE UNITS LAB L100.1000 4.4-11.0 K/mm3 High WBC 20.0 LAB L100.1200 4.2-5.4 M/mm3 Low RBC 2.73 LAB L100.1300 12.0-15.0 g/dl Low HGB 8.2 LAB L100.1400 37-47 % Low HCT 24.8 LAB L100.1500 81-99 fL Normal MCV 90.8 LAB L100.1600 27.0-32.0 pg Normal MCH 30.0 LAB L100.1700 32-36 g/gl Normal MCHC 33.1 LAB L100.1810 11.6-14.6 % Normal RDW CV 14.6 LAB L100.1820 35.1-43.9 fl High RDW SD 46.4 LAB L100.1900 150-450 K/mm3 Normal PLT 285 LAB L100.2000 6.2-12.0 fl Normal MPV 9.9 Performed By: #### L100.0500 #### [facility] [address] [place], [place], [id number] PROTHROMBIN TIME W/INR Collected: 05/04/2017 Status: F Source: [place] 1:25 AM [facility] REPOSIT[facility] TYPE CODE TESTS RESULT OUT OF RANGE REFERENCE UNITS LAB L300.4150 11.7-14.9 SECONDS High PROTIME 16.1 LAB L300.4200 Normal INR 1.3 Performed By: #### L300.3900, L300.4310, L300.4700 #### [facility] [address] [place], [place], [address] PARTIAL THROMBOPLAST Collected: 05/04/2017 Status: F Source: [place] TIME 1:25 AM [facility] REPOSITORY TYPE CODE TESTS RESULT OUT OF RANGE REFERENCE UNITS LAB L300.4310 24.1-36.2 Seconds Normal PTT 28.3 Performed By: #### L300.3900, L300.4310, L300.4700 #### [facility] [address] [place], [place], [id number] FIBRINOGEN Collected: 05/04/2017 Status: F Source: [place] 1:25 AM [facility] REPOS[facility] TYPE CODE TESTS RESULT OUT OF RANGE REFERENCE UNITS LAB L300.4700 203-444 mg/dl High FIB 484 Performed By: #### L300.3900, L300.4310, L300.4700 #### [facility] [address] [place], [address] PLACENTA Observed: 05/04/2017 Status: F Source: [place] 12:00 AM [facility] REPOSITORY Patient: ADONIS HODGSON : 1990 (26/F) Acct Num: [id number] Phys: Fuentes Del Rosario MD Unit Num: [id number] Loc: WP [id number] Specimen: [id number] Received: 05/04/17 - 104 Spec Type: PLACENTA TISSUES TISSUES: Placenta, NOS GROSS DESCRIPTION SPECIMEN: PLACENTA / CLINICAL INFORMATION: A. Weight: 4.254 kg B. Gestational Age: 40 weeks C. Sex: Male PLACENTAL WEIGHT (POST FIXATION): 390 gm PLACENTAL DIMENSIONS: 21 x 15 x 2 cm PLACENTAL SHAPE: Usual ovoid PLACENTAL WEIGHT FOR GESTATIONAL AGE: Within 10-99th percentile MEMBRANES - Present A. Insertion: Marginal B. Site of rupture from edge: 1 cm from edge of placental disc C. Color of membrane: Claire-greenish consistent with meconium staining. D. Abnormalities: None UMBILICAL CORD - Present A. Color: Claire-huynh B. Insertion: Central C. Length: 2.5 cm. Also present in the container is a detached segment of umbilical cord measuring 32 cm in length and 1.5 to 3 cm in diameter. D. Diameter: Up to 2 cm (attached segment of umbilical cord) E. Number of vessels: Three F. Abnormalities: None PLACENTAL DISC - Present A. Color of surface: Claire-huynh B. surface abnormalities: None C. Maternal cotyledons: Intact with minimal tears D. Attached retro placental clot: No clot E. Cut surface: Dark red and spongy F. Lesions: None G. Separate clot: Absent SECTIONS SUBMITTED: 1. Membrane roll 2. Cord, maternal end 3. Cord, end 4. Placental disc, and maternal surfaces 5. Placental disc, and maternal surfaces 6. Placental disc, and maternal surfaces SJ:stefan 05/04/17 TC:2 CPT: 85200 HEADER OPERATION: Primary section PRE-OP DIAGNOSIS: 40wga, prolonged labor TISSUE SUBMITTED: Placenta MICROSCOPIC DESCRIPTION Slides are reviewed. MICROSCOPIC DIAGNOSIS Placenta: Placental disc - third trimester placenta (390 gm). - Focal acute vasculitis of subamniotic blood vessels. Membranes moderate to severe acute chorioamnionitis. Umbilical cord - three blood vessels and moderate to severe acute funisitis. SJ:stefan 05/07/17 Signed Matheus Jericho 05/07/17 <signature on file> Performed By: #### PPLAC #### [facility] [address] [place], [place], [id number] CBC-COMPLETE BLOOD CNT Collected: 05/03/2017 Status: F Source: RHONDA NO DIFF 3:45 AM [facility] REPOSITORY TYPE CODE TESTS RESULT OUT OF RANGE REFERENCE UNITS LAB L100.1000 4.4-11.0 K/mm3 High WBC 16.6 LAB L100.1200 4.2-5.4 M/mm3 Low RBC 4.06 LAB L100.1300 12.0-15.0 g/dl Normal HGB 12.1 LAB L100.1400 37-47 % Low HCT 36.0 LAB L100.1500 81-99 fL Normal MCV 88.7 LAB L100.1600 27.0-32.0 pg Normal MCH 29.8 LAB L100.1700 32-36 g/gl Normal MCHC 33.6 LAB L100.1810 11.6-14.6 % Normal RDW CV 14.6 LAB L100.1820 35.1-43.9 fl High RDW SD 46.1 LAB L100.1900 150-450 K/mm3 Normal PLT 250 LAB L100.2000 6.2-12.0 fl Normal MPV 10.5 Performed By: #### L100.0500 #### [facility] [address] [place], [place], [address] TYPE AND SCREEN Collected: 05/03/2017 Status: F Source: [place] 3:45 AM [facility] REPOSITORY Order Comment: Reason for Type AND Screen/Red Cells: TYPE CODE TESTS RESULT OUT OF RANGE REFERENCE UNITS LAB B10.0800 A Normal BLOOD TYPE GEL NEGATIVE LAB B100.4000 Normal Antibody NEGATIVE Screen Performed By: #### B101.7450 #### [facility] [address] [place], [address] FFP Collected: 05/03/2017 Status: F Source: [place] 3:45 AM [facility] REPOSITORY TYPE CODE TESTS RESULT OUT OF REFERENCE UNITS RANGE LAB U100.0900 [id number] TRANSFUSED PRODUCT: Fresh Frozen Plasma COUNT: 4 Performed By: #### U100.0900 #### [facility] - refer to report for specific site RC Collected: 05/03/2017 Status: F Source: [place] 3:45 AM [facility] REPOS[facility] TYPE CODE TESTS RESULT OUT OF REFERENCE UNITS RANGE LAB U100.0000 [id number] TRANSFUSED PRODUCT: T AND S with Crossmatch, Red Cells COUNT: 2 Performed By: #### U100.0000 #### [facility] - refer to report for specific site RC Collected: 05/03/2017 Status: F Source: RHONDA 3:45 AM [facility] REPOS[facility] TYPE CODE TESTS RESULT OUT OF REFERENCE UNITS RANGE LAB U100.0000 [id number] TRANSFUSED PRODUCT: T AND S with Crossmatch, Red Cells COUNT: 5 Performed By: #### U100.0000 #### [facility] - refer to report for specific site CBC-COMPLETE BLOOD CNT Collected: 04/23/2017 Status: F Source: RHONDA NO DIFF 11:10 AM [facility] REPOS[facility] TYPE CODE TESTS RESULT OUT OF RANGE REFERENCE UNITS LAB L100.1000 4.4-11.0 K/mm3 High WBC 11.3 LAB L100.1200 4.2-5.4 M/mm3 Low RBC 4.04 LAB L100.1300 12.0-15.0 g/dl Normal HGB 12.1 LAB L100.1400 37-47 % Low HCT 35.7 LAB L100.1500 81-99 fL Normal MCV 88.4 LAB L100.1600 27.0-32.0 pg Normal MCH 30.0 LAB L100.1700 32-36 g/gl Normal MCHC 33.9 LAB L100.1810 11.6-14.6 % Normal RDW CV 14.2 LAB L100.1820 35.1-43.9 fl High RDW SD 45.1 LAB L100.1900 150-450 K/mm3 Normal PLT 257 LAB L100.2000 6.2-12.0 fl Normal MPV 9.9 Performed By: #### L100.0500 #### [facility] [address] [place], [address] COMPREHENSIVE METABOLIC Collected: 04/23/2017 Status: F Source: RHONDA [facility] 11:10 AM [facility] REPOSIT[facility] TYPE CODE TESTS RESULT OUT OF RANGE REFERENCE UNITS LAB L501.0100 74-106 mg/dL Normal GLU 79 LAB L501.1000 7-18 mg/dL Low BUN 6 LAB L501.1100 0.55-1.02 mg/dL Low 0.39 CREAT,SERUM Result Comment: The validity of the calculated GFR AND GFRAA in patients over 70 years has not been determined. Clinical correlation is essential. LAB L501.1110 >60 mL/min Normal EST GFR 205 Result Comment: Non- GFR Calc LAB L501.1115 >60 mL/min Normal EST GFR - AA 248 Result Comment: GFR Calc LAB L501.1300 10-20 RATIO Normal BUN/CRE 15.2 LAB L501.1500 6.4-8.2 g/dL T Normal PROT 7.0 LAB L501.1800 3.2-5.0 g/dL Low ALB 2.6 LAB L501.1950 2.2-4.2 g/dL High GLOB 4.4 LAB L501.2000 0.9-2.4 RATIO Low A/G 0.6 LAB L501.2200 8.5-10.1 mg/dL Low CA 8.4 LAB L501.4100 15-37 U/L Low AST 14 LAB L501.4305 45-117 U/L High ALK P 136 LAB L501.4405 13-56 U/L Normal ALT 17 Result Comment: Please note revised ALT reference range effective 2017. LAB L501.4600 0.20-1.00 mg/dL Normal T BILI 0.30 LAB L501.5300 136-145 mmol/L Normal NA 137 LAB L501.5600 3.5-5.1 mmol/L Normal K 3.8 LAB L501.5900 98-107 mmol/L Normal CL 106 LAB L501.6100 21.0-32.0 mmol/L Normal CO2 21.0 LAB L501.6200 5-15 Normal GAP 10 Performed By: #### L500.4050, L501.1400 #### [facility] [address] [place], [address] URIC ACID Collected: 04/23/2017 Status: F Source: RHONDA 11:10 AM [facility] REPOS[facility]ORY TYPE CODE TESTS RESULT OUT OF RANGE REFERENCE UNITS LAB L501.1400 2.6-6.0 mg/dL Normal URIC 4.9 Result Comment: The drugs N-Acetylcysteine and Metamizole may falsely depress this assay. Performed By: #### L500.4050, L501.1400 #### [facility] [address] [place], [address] CREATININE, URINE Collected: 04/23/2017 Status: F Source: RHONDA (RANDOM) 11:00 AM [facility] REPOS[facility] TYPE CODE TESTS RESULT OUT OF RANGE REFERENCE UNITS LAB L501.1200 NO RANGE EST. mg/dL Normal UR CREAT 101.00 Performed By: #### L501.1200, L501.1930 #### [facility] [address] [place], [address] PROTEIN, URINE Collected: 04/23/2017 Status: F Source: RHONDA (RANDOM) 11:00 AM [facility] REPOS[facility] TYPE CODE TESTS RESULT OUT OF RANGE REFERENCE UNITS LAB L501.1930 <11.9 mg/dL High 16.9 PROTEIN,UR.R AN. Performed By: #### L501.1200, L501.1930 #### [facility] [address] [place], [address] (ROM) RUPTURE OF Collected: 04/16/2017 Status: F Source: RHONDA [facility] 3:30 PM [facility] REPOSITORY Order Comment: STAT...CALL RESULTS TO OFFICE [phone]. SPEAK TO A NURSE Patient test is INVALID and must be repeated on a new sample. Resubmit fresh specimen for repeat testing. RESULTS CALLED TO [] 04/16/17 Tomas Townsendler. REPORT READ BACK BY [] []. TYPE CODE TESTS RESULT OUT OF RANGE REFERENCE UNITS LAB L205.1310 Negative Normal ROM Negative Result Comment: RESULTS CALLED TO SHERIE BRODY RN AT DOCTORS OFFICE 04/16/17 1641 Thom Phillips. REPORT READ BACK BY . Amniotic fluid not present indicates No Rupture of Membranes at time of specimen collection. Performed By: #### L205.1000 #### [facility] [address] [place], [address] ALLERGIES ALLERGIES DATE TYPE / CODE NAME / CODE REACTION SEVERITY SOURCE 05/03/2017 Drug codeine/F006 Vomiting Unknown [facility] Allergy/4160 727395([facility] 71079(SNOMED M) Repository CT) 05/03/2017 Drug latex/V53333 Rash Unknown [facility] Allergy/4160 8921(RXNORM) [facility] [address](SNOMED Repository CT) ENCOUNTERS ENCOUNTERS ADMIT/DISCHARGE ACCOUNT ADMITTING ENCOUNTER LOCATION SOURCE NUMBER CLASS 03/05/2018 [id number] Ambulatory [place] Rhonda 4 [facility] ing:LABSPEC Repository 05/10/2017/ [id number] Ambulatory [place]onda [place] 8 9 [facility] ing:WPOUTRoom Repository : WPOLRM 05/03/2017/ [id number] Fuentes Del Rosario Inpatient [place] 8 5 Encounter [facility] ing:WPRoom: Repository [id number]: 1 05/03/2017 [id number] Fuentes Del Rosario Ambulatory BMSBuilding:B [place] 4 MS.CF.[facility] Repository 05/03/2017 [id number] Fuentes Del Rosario Ambulatory BMSBuilding:B [place] 1 MS.CF.[facility] Repository 04/23/2017 [id number] Ambulatory [place] Rhonda 0 [facility] ing:WOBLAB Repository 04/16/2017 [id number] [place] [facility] ing:LABSPEC Repository PAYERS PAYERS ENCOUNTER GUARANTOR PAYER SUBSCRIBER SOURCE 03/05/2018 ADONIS Bobby Primary NOT GIVENUNK [place] [id number] [facility] Number: Effective Repository [place] [id number]: Date:2018-03-05 (HP) 05/10/2017 Adonis L Primary NOT GIVENUNK [place] [id number] Insurance:SELF PAY [facility], Number: Effective Repository [place] [address]Vpk: Date:2017-05-10 (HP) 05/03/2017 Adonis L Primary Insurance:[facility] Adonis L [place] [id number] PACKAGE PLANPolicy BostickDOB: [id number] [id number] [place]ository [place] [address]Bag: Date:2017-01-25 () 05/03/2017 Secondary NOT GIVENUNK [place] Insurance:SELF PAY [facility] Number: Effective Repository Date:2017-01-25 05/03/2017 Adonis L Primary Insurance:[facility] Adonis L [place] [id number] PACKAGE PLANPolicy BostickDOB: [facility] Number: 0Effective [id number], Date:2017-01-25 [place]ository [place] [address]Yaq: () 05/03/2017 Secondary Adonis L [place] Insurance:MOLINAPolic BostickDOB: [facility] Number: [id number] [id number] Repository Date:[id number] [address]YQ: 05/03/2017 Tertiary NOT GIVENUNK [place] Insurance:SELF PAY [facility] Number: Effective Repository Date:2017-05-03 05/03/2017 Adonis L Primary Insurance:[facility] Adonis L [place] [id number] PACKAGE PLANPolicy BostickUNK [facility] Number: 0Effective [facility], Date:2017-01-25 [place]ository [place] [address]Cqc: (HP) 05/03/2017 Secondary NOT GIVENUNK [place] Insurance:SELF PAY [facility] Number: Effective Repository Date:2017-05-03 04/23/2017 Adonis Bobby Primary NOT GIVENUNK [place] [id number] Insurance:SELF PAY [facility], Number: Effective [place]ository [place] [id number]: Date:2017-04-23 () 04/16/2017 Adonis Bobby Primary NOT GIVENUNK [place] [id number] Insurance:SELF PAY [facility], Number: Effective [place]ository [place] [id number]: Date:2017-04-16 ()
== END ==
PROVIDERS: Referring Provider Obstetrics & Gynecology; Visit Provider Obstetrics & Gynecology
DX: Z12.4 Encounter for screening for malignant neoplasm of cervix (principal)
CPT/HCPCS: 88175; G0145

== ENCOUNTER → 2018-12-30 08:53 | Outpatient (CLI) | payer SELFPAY ==
--- NOTE | 2018-12-30 08:58 | US_ITS ---
STUDY: ULTRASOUND BREAST - RIGHT REASON FOR EXAM: Female, 28 years old. Right breast lump. The lump is not palpable today. TECHNIQUE: Axial and longitudinal images of the RIGHT breast were performed with a high resolution ultrasound transducer. COMPARISON: Comparison is made with prior mammogram done earlier in the day. FINDINGS: RIGHT Breast: There is a 5 mm x 7 mm x 4 mm well-defined hypoechoic nodule at the 3:00 position of the breast at 4 cm from nipple. Low level echoes are seen within it. A biopsy is recommended. US/Breast Limited Unilateral IMPRESSION: 5 mm x 7 mm x 4 mm well-defined hypoechoic nodule at the 3:00 position of the breast for sinus nipple. This is not a typical cyst. A biopsy is recommended. ASSESSMENT CATEGORY: BIRADS Category 4: Suspicious - Biopsy Should Be Considered. A letter regarding these results will be sent to the patient by the facility within 30 days. Electronically Signed: Oliver Mario, at 11:01 EDT , Service support ,
--- NOTE | 2018-12-30 08:58 | BI_ITS ---
MAMMOGRAPHY - BILATERAL DIAGNOSTIC REASON FOR EXAM: Female, 28 years old. Tender palpable right breast lump. PERTINENT HISTORY: Non-contributory. TECHNIQUE: Digital bilateral breast ebenezer (3D mammographic acquisition) in the CC and MLO projections. 2-D mediolateral oblique (MLO) and craniocaudad (CC) views of both breasts were obtained. CAD: Full Field Digital Mammography with Computer Added Detection was performed. COMPARISON: None. Baseline examination. FINDINGS: Breast Composition: The breasts are extremely dense, which lowers the sensitivity of mammography. There are no dominant masses or suspicious calcifications. Small benign-appearing right axillary lymph nodes. No other significant abnormalities are identified. BI/DIAG MAMM W/CAD, BILAT IMPRESSION: Negative diagnostic mammogram. With the patient's history of a palpable abnormality in the right breast, correlation with ultrasound is recommended. ASSESSMENT CATEGORY: BIRADS Category 0: Incomplete. Need additional imaging evaluation. A letter regarding these results will be sent to the patient by the facility within 30 days. Approximately 10% of breast cancers are not detected by mammography. A normal mammogram should not delay biopsy of a clinically suspicious abnormality. Electronically Signed: Oliver Mario, at 11:07 EDT , Service support ,
== END ==
PROVIDERS: Referring Provider Obstetrics & Gynecology; Visit Provider Obstetrics & Gynecology
DX: N64.4 Mastodynia (principal); N63.10 Unspecified lump in the right breast, unspecified quadrant
CPT/HCPCS: 76642; 77062; 77066; G0279

== ENCOUNTER → 2019-01-16 07:35 | Outpatient (CLI) | payer SELFPAY ==
[2019-01-07 10:22] VITALS: BMI 44.3
--- NOTE | 2019-01-16 07:41 | US_ITS ---
STUDY: ULTRASOUND GUIDED BREAST BIOPSY RIGHT REASON FOR EXAM: Female, 28 years old. Abnormal mammogram. TECHNIQUE: Under direct sonographic guidance, the surgeon performed core biopsy of the suspicious nodule at the 3:00 position of the breast. COMPARISON: None. FINDINGS: Successful ultrasound-guided core breast biopsy. US/US Breast Biopsy 1st Lesion IMPRESSION: Successful ultrasound-guided core breast biopsy. Electronically Signed: Oliver Mario, at 9:42 EDT , Service support ,
--- NOTE | 2019-01-16 08:18 | BRBX_PTH ---
PATIENT: ADONIS ADAMS LOC: OPUS U#:[id number] AGE/SX: 34/F ROOM: RE01/16/[address]: Dr. Vickey Tena MD : 1990 BED: DIS: SPEC #: [id number] RECD: 01/16/19 08:48 STATUS: EARNEST SANTO #: [id number] MART: 01/16/19 08:[address]: Vickey Tena DEPT: SURGICAL PATHOLOGY RECD BY: Ed Kenney ENTERED: 01/16/19 09:24 SP TYPE: BREAST BX OTHR DR: No Primary Care Phys Tissues: Right breast, NOS Procedures: Surgery Specimen Level IV HEADER OPERATION: Right breast biopsy PRE-OP DIAGNOSIS: Right breast mass TISSUE SUBMITTED: Right breast ISCHEMIC TIME: 1 minute FIXATION TIME: 11.5 hours MICROSCOPIC DIAGNOSIS Right breast mass, core biopsy: Fibroadenoma. AM:stefan 01/17/19 MICROSCOPIC DESCRIPTION Slides are reviewed. GROSS DESCRIPTION Received is one container labeled with the patient's name and not further designated. The specimen consists of multiple irregular and elongated fragments of light webb soft tissue that in aggregate measure 0.7 x 0.5 x <0.1 cm. The specimen is totally submitted in one cassette. / AM:stefan 01/16/19 TC:5 CPT: 75486
--- NOTE | 2019-01-16 08:24 | NURSING ---
dressed incision after ultra sound guided bx done by dr adams cleansed,skin adaptic applied, x4 steri strips applied to needle incision op site, reviewed dc instructions and care with patient, voiced understanding.
--- NOTE | 2019-01-16 09:57 | HP.PCM_ITS ---
History and Physical Date of Admission: 01/16/19 [facility] [address] [place] [address] OFFICE VISIT Date of Service: 01/07/19 MR#: [id number] Acct: [id number] Name: ADONIS ADAMS Rep #: [id number] : 1990 Provider: Vickey bender MD Age/Sex: 28/F Location: [facility] Status: Signed Intake Vital Signs 01/07/19 Body Mass Index (BMI) 44.3 01/07/19 Height 5 ft 1 in 01/07/19 Weight: 195 lb 01/07/19 Body Mass Index (BMI) 36.8 01/07/19 Blood Pressure 128/90 H 01/07/19 Blood Pressure Location Rt brachial 01/07/19 Blood Pressure Position Sitting 01/07/19 Respiratory Rate 16 01/07/19 Pulse Rate 90 01/07/19 Pulse Source Monitor 01/07/19 Temperature 98.5 F 01/07/19 Temperature Source Oral 01/07/19 Pulse Ox 96 01/07/19 Oxygen Delivery Method room air Intake Visit Reasons: Birads 4 Rt Breast US [facility] 12/30 Chief Complaint: Hemorrhage Director Of Business Systems Required: No Is patient in pain?: Yes (Right breast is very tender) Allergies latex Allergy (Verified 01/07/19 10:20) Rash codeine Adverse Reaction (Verified 01/07/19 10:20) Vomiting Medications NK 01/07/19 [History Confirmed 01/07/19] [facility] Medical History Abnormal ultrasound of breast (Acute) Abnormal mammogram of right breast (Acute) Lump of right breast (Acute) 40 weeks gestation of (Acute) Delivery of by section (Acute) hemorrhage (Acute) Endometritis (Acute) Surgical History Hx of wisdom tooth extraction (Acute) History of (Acute) Family History Mother Hypertension High cholesterol Father High cholesterol Hypertension Social History (Updated 01/07/19 @ 10:36 by Vickey Tena MD) Smoking Status: Never smoker second hand exposure: No alcohol intake: current alcohol intake frequency: holidays/special occasions only substance use type: does not use caffeine: Yes what type of physical activity do you participate in: none frequency: does not exercise HPI HPI HPI: ADONIS ADAMS, is a 28 F who presents to the office today for HPI HPI Surgical H&P: Yes HPI: ADONIS ADAMS is a 28 F who presents to the office today for Abnormal mammogram and ultrasound of her right breast. Ultrasound was completed [facility] on 12/30/2018. This was read as a BI-RADS Category 4 showing a 7 mm nodule in the Right breast located at the 3 o'clock position approximately 4 cm from the nipple. Patient has been complaining a lot of enlarged lymph nodes in her neck muscular pains and not feeling normal. ROS General General: Yes fatigue; no weight change, appetite, colon cancer, breast cancer or weakness HEENT HEENT: Yes swollen glands; no difficulty swallowing, eye injury, eye surgery or hoarseness Endo Endocrine: No thyroid disease, diabetes mellitus, thyroid cancer, Hair loss, heat intolerance or cold intolerance Skin Skin: Yes changing moles; no rash Breast Breast: Yes right breast lump, breast pain, abnormal mammogram and abnormal US; no left breast lump, nipple discharge or breast enlargement Cardio Cardiovascular: Yes murmur; no pacemaker, heart disease, atrial fibrillation, high blood pressure, heart attack, heart stent, palpitations, shortness of breat with exertion or chest pain Psych Psychiatric: No depression, anxiety or hearing voices Resp Respiratory: No shortness of breath, No sleep apnea, No cough, No COPD, No asthma, No emphysema, No wheezing Gastro Gastrointestinal: No abdominal pain, Yes nausea or vomiting, No diarrhea, No constipation, No blood in stool, No acid reflux, Yes hemorrhoids, No ulcers, No gallbladder problem, No black,tarry stools Ahsan Hematologic: No blood thinners, No blood disorders, Yes bleeding, No anemia, No blood clots Neuro Neurologic: No system reviewed and no additional complaints, except as docu, No as per HPI, No abnormal walking, No abnormal hearing, No abnormal movements, No abnormal speech, No behavioral changes, No burning sensations, No confusion, No seizure-like activity, No unsteadiness, No dizziness, No localized weakness, No frequent falls, No headache(s), No lack of coordination, No loss of vision, No memory loss, No numbness, No other visual disturbances, No radiating pain, No restless legs, No sensory deficit, No fainting, No tingling, No tremor(s), No weakness, No other Exam HENMT Head: normal to inspection, normocephalic, atraumatic Mouth: oropharynx normal, moist mucous membranes Eyes General: appearance normal, both eyes and all related structures Sclera: sclerae normal Neck Neck: trachea midline, no lymphadenopathy noted Neck mass: No Thyroid: thyroid normal Lymphatic: no lymphadenopathy noted Chest Breast inspection: normal inspection of the breasts Breast Palpation: No nipple discharge Resp Other: Respiratory Exam: Deferred Cardio Heart Sounds: murmur Other: Cardiac Exam: Deferred GI Other: GI Exam: Deferred Other: Rectal Exam: Deferred Extrem Other: Extremity Exam: Deferred Assessment & Plan Problems 1. Abnormal mammogram of right breast R92.8 Plan I have discussed above with the patient. I have recommended ultrasound guided needle core breast biopsy with vacuum assistance. I have described the procedure to the patient. I have discussed with the patient that sometimes the ultrasound lesion may be artifact and is user dependent and therefore prior to undergoing the procedure, the patient will have a definitive US to ensure that the lesion is truly present and is not artifact. A marker clip will be placed to identify the location. Patient has been counseled to the risks/benefits of the procedure. I have explained the risks of the surgery, including but not limited to: infection, bleeding, injury to any blood vessels/nerves, scar tissue, missing the lesion, further surgery, etc. - the patient understands and agrees to proceed. I have answered all of the patient's questions to her satisfaction and she has no further questions. Coding Level of Care Code Off vis,new,level 3 Diagnoses Abnormal mammogram of right breast R92.8 01/07/19 1036 <Electronically signed by Vickey verdugo MD> Date _ Vickey Tena MD Cosigner Signature: Date (if applicable) CC: Teena Yañez MD ~ I have re-examined the patient. There are no clinical changes since date of exam.
--- NOTE | 2019-01-16 09:59 | OP.PCM_ITS ---
Problem List (1) Abnormal mammogram of right breast Status: Acute (2) Abnormal ultrasound of breast Status: Acute Report of Operation Date of Procedure: 01/16/19 Pre-Operative Diagnosis: Abnormal ultrasound to right breast Post-Operative Diagnosis: Same Surgery/Procedure Performed:: Ultrasound-guided needle core biopsy of abnormal mammogram the right breast Type of Anesthesia:: Local Description of Procedure: Patient was brought into the ultrasound room. Placed in the supine position. Upper inner quadrant of the right breast was ultrasound and the lesion was identified. The skin was prepped with chlorhexidine. 1% lidocaine plain was injected. Local was injected down to the lesion under ultrasound guidance. A skin willi was made. Under ultrasound guidance 2 needle core biopsies were obtained. Under ultrasound guidance a small titanium clip was placed. Steri- Strips were applied sterile dressings were applied and the patient tolerated the procedure well. - Admit VTE Documentation VTE Present on Admission: No VTE Mechan Device Prophylaxis: None VTE Pharm Prophylaxis ordered?: No Reason prophylaxis not ordered:: Treatment Not Indicated
== END ==
PROVIDERS: Referring Provider Surgery; Visit Provider Surgery
DX: D24.1 Benign neoplasm of right breast (principal); R92.8 Other abnormal and inconclusive findings on diagnostic imaging of breast; N63.10 Unspecified lump in the right breast, unspecified quadrant; Z88.5 Allergy status to narcotic agent; Z91.040 Latex allergy status
CPT/HCPCS: 19083; 88305

== ENCOUNTER → 2019-10-08 14:15 | Outpatient (CLI) | payer SELFPAY ==
[2019-01-07 10:22] VITALS: BMI 44.3
[2019-10-08 16:08] LABS: hCG Titer Quant., Serum < 1 mIU/mL (1-3)
== END ==
PROVIDERS: Visit Provider Obstetrics & Gynecology
DX: O20.0 Threatened abortion (principal); Z3A.00 Weeks of gestation of pregnancy not specified
CPT/HCPCS: 36415; 84702

== ENCOUNTER → 2019-11-10 14:42 | Outpatient (CLI) | payer SELFPAY ==
[2019-01-07 10:22] VITALS: BMI 44.3
[2019-11-10 17:13] LABS: Color, Urine Yellow (Yellow); Glucose, Dipstick Normal (Normal); Ketone-Dipstick Negative (Negative); Leukocyte Esterase-Dipstick 25 /ul (Negative); Nitrite-Dipstick Negative (Negative); Occult Blood-Urine 10 /ul (Negative); Protein-Dipstick Negative (Negative); Urine Bilirubin Dipstick Negative (Negative); Urine Clarity Cloudy (Clear); Urine Urobilinogen Normal (Normal)
[2019-11-10 17:47] LABS: Red Blood Cells-Urine 0-5 SEEN /hpf (0-5); White Blood Cells 25-50 SEEN /hpf (0-5)
[2019-11-10 17:48] LABS: Squamous Epithelial Cells - UA 5-10 SEEN /hpf (5-10)
[2019-11-10 17:49] LABS: Bacteria 2+ /hpf (None Seen); Mucous, Urine 2+ /hpf (<or=2+)
== END ==
PROVIDERS: Visit Provider Obstetrics & Gynecology
DX: N39.0 Urinary tract infection, site not specified (principal)
CPT/HCPCS: 81001; 87086; 87088; 87186

== ENCOUNTER → 2019-12-29 17:13 | Outpatient (CLI) | payer SELFPAY ==
[2019-01-07 10:22] VITALS: BMI 44.3
== END ==
PROVIDERS: Visit Provider Obstetrics & Gynecology
DX: N39.0 Urinary tract infection, site not specified (principal)
CPT/HCPCS: 87086; 87088; 87186

== ENCOUNTER → 2020-05-17 11:56 | Outpatient (CLI) | payer SELFPAY ==
[2019-01-07 10:22] VITALS: BMI 44.3
[2020-05-17 13:05] LABS: Bacteria 0 SEEN /hpf (None Seen); Mucous, Urine 0 SEEN /hpf (<or=2+)
[2020-05-17 14:13] LABS: Color, Urine Yellow (Yellow); Glucose, Dipstick Normal (Normal); Ketone-Dipstick Negative (Negative); Leukocyte Esterase-Dipstick 100 /ul (Negative); Nitrite-Dipstick Negative (Negative); Occult Blood-Urine 250 /ul (Negative); Protein-Dipstick 15 mg/dl (Negative); Urine Bilirubin Dipstick Negative (Negative); Urine Clarity Sl. Cloudy (Clear); Urine Urobilinogen Normal (Normal)
[2020-05-17 14:20] LABS: Red Blood Cells-Urine 25-50 SEEN /hpf (0-5); Squamous Epithelial Cells - UA 0-5 SEEN /hpf (5-10); White Blood Cells 10-25 SEEN /hpf (0-5)
== END ==
PROVIDERS: Visit Provider Obstetrics & Gynecology
DX: R30.0 Dysuria (principal)
CPT/HCPCS: 81001; 87086; 87088

== ENCOUNTER → 2020-09-03 12:25 | Outpatient (CLI) | payer SELFPAY ==
[2019-01-07 10:22] VITALS: BMI 44.3
[2020-09-08 12:50] LABS: HPV APTIMA, High Risk Negative (Negative)
== END ==
PROVIDERS: Visit Provider Obstetrics & Gynecology
DX: Z12.4 Encounter for screening for malignant neoplasm of cervix (principal)
CPT/HCPCS: 87624; 88175; G0145

== ENCOUNTER → 2020-09-11 07:10 | Outpatient (CLI) | payer SELFPAY ==
[2019-01-07 10:22] VITALS: BMI 44.3
[2020-09-11 09:18] LABS: Estradiol 55.5 pg/mL; Follicle Stimulating Hormone 5.3 mIU/mL; Free T3 2.7 pg/mL (2.18-3.98); Glucose 99 mg/dL (74-106); T4 Free Direct 1.03 ng/dL (0.76-1.46); Thyroid Stim Hormone (TSH) 2.31 uIU/mL (0.358-3.74)
[2020-09-11 11:11] LABS: Insulin 28.4 mU/L (2.6-37.6); Vitamin D,25 Hydroxy 47.9 ng/mL
[2020-09-12 12:24] LABS: Sex Hormone-binding Globulin 24.1 nmol/L (24.6-122.0)
[2020-09-15 11:41] LABS: 17-Hydroxyprogesterone 17 ng/dL (.)
[2020-09-19 07:51] LABS: Anti-Mullerian Hormone,Serum 2.51 ng/mL (.)
== END ==
PROVIDERS: PCP Obstetrics & Gynecology; Referring Provider Obstetrics & Gynecology; Visit Provider Obstetrics & Gynecology
DX: N97.9 Female infertility, unspecified (principal); R10.30 Lower abdominal pain, unspecified
CPT/HCPCS: 36415; 82306; 82533; 82627; 82670; 82947; 83001; 83498; 83516; 83525; 84146; 84270; 84403; 84439; 84443; 84480; 84481; 82626

== ENCOUNTER → 2020-09-16 11:49 | Outpatient (CLI) | payer SELFPAY ==
[2019-01-07 10:22] VITALS: BMI 44.3
--- NOTE | 2020-09-16 11:57 | RAD_ITS ---
STUDY: HYSTEROSALPINGOGRAM. REASON FOR EXAM: Female, 29 years old. INFERTILITY FLUOROSCOPY TIME (if supplied): ( 18 seconds ) minutes/seconds. 2 images were obtained. TECHNIQUE: A hysterosalpingogram was performed by the tar man. Imaging was submitted. COMPARISON: None. FINDINGS: The uterus is unremarkable. There is patency of both fallopian tubes with bilateral spill. RAD/Salpingogram IMPRESSION: Normal hysterosalpingogram. Electronically Signed: Oliver Mario MD at 14:07 EDT , Service support ,
== END ==
PROVIDERS: Referring Provider Obstetrics & Gynecology; Visit Provider Obstetrics & Gynecology
DX: N97.9 Female infertility, unspecified (principal)
CPT/HCPCS: 58340; 74740; Q9965

== ENCOUNTER → 2020-10-05 08:57 | Outpatient (CLI) | payer SELFPAY ==
[2019-01-07 10:22] VITALS: BMI 44.3
[2020-10-05 09:35] LABS: Estradiol 117.3 pg/mL
[2020-10-05 09:36] LABS: Progesterone Level 5.92 ng/mL (See Comment)
== END ==
PROVIDERS: Visit Provider Obstetrics & Gynecology
DX: E27.9 Disorder of adrenal gland, unspecified (principal)
CPT/HCPCS: 36415; 82670; 84144

== ENCOUNTER → 2020-11-08 12:02 | Outpatient (CLI) | payer SELFPAY ==
[2020-11-08 14:03] LABS: Estradiol 105.1 pg/mL; hCG Titer Quant., Serum 91 mIU/mL (1-3)
[2020-11-08 14:07] LABS: Progesterone Level 9.41 ng/mL (See Comment)
== END ==
PROVIDERS: Visit Provider Obstetrics & Gynecology
DX: E28.8 Other ovarian dysfunction (principal)
CPT/HCPCS: 36415; 82627; 82670; 84144; 84702; 82626

== ENCOUNTER → 2020-11-11 17:08 | Outpatient (CLI) | payer SELFPAY | PROVIDERS: Visit Provider Obstetrics & Gynecology | DX: Z34.81 Encounter for supervision of other normal pregnancy, first trimester (principal) ==

== ENCOUNTER → 2020-11-12 10:52 | Outpatient (CLI) | payer SELFPAY ==
[2020-11-12 12:08] LABS: hCG Titer Quant., Serum 911 mIU/mL (1-3)
== END ==
PROVIDERS: Visit Provider Obstetrics & Gynecology
DX: Z34.81 Encounter for supervision of other normal pregnancy, first trimester (principal)
CPT/HCPCS: 36415; 84702

== ENCOUNTER → 2020-11-16 13:07 | Outpatient (CLI) | payer SELFPAY ==
[2020-11-16 14:20] LABS: Estradiol 148.3 pg/mL; Progesterone Level 13.01 ng/mL (See Comment)
[2020-11-16 14:33] LABS: hCG Titer Quant., Serum 2795 mIU/mL (1-3)
== END ==
PROVIDERS: Visit Provider Obstetrics & Gynecology
DX: O20.0 Threatened abortion (principal); Z3A.00 Weeks of gestation of pregnancy not specified
CPT/HCPCS: 36415; 82670; 84144; 84702

== ENCOUNTER → 2020-11-23 09:07 | Outpatient (CLI) | payer SELFPAY ==
[2020-11-23 10:23] LABS: Progesterone Level 15.21 ng/mL (See Comment)
[2020-11-23 10:43] LABS: hCG Titer Quant., Serum 7860 mIU/mL (1-3)
[2020-11-23 10:47] LABS: Estradiol 230.1 pg/mL
== END ==
PROVIDERS: Visit Provider Obstetrics & Gynecology
DX: Z34.01 Encounter for supervision of normal first pregnancy, first trimester (principal); E28.8 Other ovarian dysfunction
CPT/HCPCS: 36415; 82670; 84144; 84702

== ENCOUNTER → 2020-12-07 15:35 | Outpatient (CLI) | payer SELFPAY ==
[2020-12-07 17:10] LABS: Absolute Lymphocyte Count 1.84 X10^3/uL (0.83-4.51); Absolute Neutrophil Count 7.3 X10^3/uL (2.0-7.7); Basophil# 0.05 X10^3/uL; Basophil% 0.5 % (0-1); Eosinophil# 0.14 X10^3/uL; Eosinophils% 1.4 % (0-5); Hematocrit 39.4 % (37-47); Hemoglobin 13.3 g/dL (12.0-15.0); Lymphocyte # 1.84 X10^3/ul (0.83-4.51); Lymphocyte % 18.7 % (19-41); Mean Corp Hgb Conc 33.8 g/dL (32-36); Mean Corpuscular Hgb 28.7 pg (27.0-32.0); Mean Corpuscular Volume 85.1 fL (81-99); Mean Platelet Vol. 9.6 fl (6.2-12.0); Monocyte# 0.46 X10^3/uL; Monocyte% 4.7 % (0-10); NRBC Flagged by Analyzer 0 % (0-5); Neutrophil # 7.33 X10^3/uL (2.7-7.7); Neutrophil % 74.4 % (47-70); Platelet Count 293 K/mm3 (150-450); RBC Distribution Width CV 12.8 % (11.6-14.6); RBC Distribution Width SD 39.5 fl (35.1-43.9); Red Blood Count 4.63 M/mm3 (4.2-5.4); White Blood Count 9.9 K/mm3 (4.4-11.0)
[2020-12-07 17:12] LABS: Color, Urine Yellow (Yellow); Glucose, Dipstick Normal (Normal); Ketone-Dipstick Negative (Negative); Leukocyte Esterase-Dipstick Negative /ul (Negative); Nitrite-Dipstick Negative (Negative); Occult Blood-Urine Negative /ul (Negative); Protein-Dipstick Negative (Negative); Urine Bilirubin Dipstick Negative (Negative); Urine Clarity Sl. Cloudy (Clear); Urine Urobilinogen Normal (Normal); Urine pH 6.5 (5.0 - 8.0)
[2020-12-07 17:30] LABS: Amphetamine Urine VISTA NEGATIVE (<1000 ng/mL); Barbiturate Urine VISTA NEGATIVE (< 200 ng/mL); Benzodiazepine Urine VISTA NEGATIVE (< 200 ng/mL); Cocaine Urine VISTA NEGATIVE (< 300 ng/mL); Ecstacy Urine VISTA NEGATIVE (< 500 ng/mL); Methadone Urine VISTA NEGATIVE (< 300 ng/mL); PCP Urine VISTA NEGATIVE (< 25 ng/mL); THC Urine VISTA NEGATIVE (< 50 ng/mL); Vista UDS pH Range 5
[2020-12-07 17:49] LABS: Estradiol 805.9 pg/mL
[2020-12-07 18:30] LABS: HIV - WCH Non-Reactive (Nonreactive); Hepatitis B Surface Antigen Non-Reactive (Nonreactive); Hepatitis C Antibody Non-Reactive (Nonreactive); Rubella IgG Reactive (Nonreactive); Syphilis Antibodies Non-reactive
[2020-12-10 03:06] LABS: Chlamydia By Nucleic Acid AMP Negative (Negative)
[2020-12-10 08:38] LABS: Gonococcus By Nucleic Acid AMP Negative (Negative)
== END ==
PROVIDERS: Visit Provider Obstetrics & Gynecology
DX: Z34.81 Encounter for supervision of other normal pregnancy, first trimester (principal)
CPT/HCPCS: 36415; 80307; 81002; 82670; 84144; 84443; 84702; 85025; 86703; 86762; 86780; 86803; 87086; 87088; 87340; 87491; 87591

== ENCOUNTER 2021-04-27 09:49 | Outpatient (CLI) | payer SELFPAY ==
[2021-04-27 10:35] LABS: Hemoglobin 11.6 g/dL (12.0-15.0); Mean Corp Hgb Conc 34.1 g/dL (32-36); Mean Corpuscular Hgb 30.4 pg (27.0-32.0); Mean Platelet Vol. 9.6 fl (6.2-12.0); Platelet Count 229 K/mm3 (150-450); RBC Distribution Width CV 13.7 % (11.6-14.6); RBC Distribution Width SD 44.4 fl (35.1-43.9); Red Blood Count 3.82 M/mm3 (4.2-5.4); White Blood Count 9.8 K/mm3 (4.4-11.0)
[2021-04-27 11:05] LABS: Glucose Challenge Gest 1H 50g 134 mg/dL (70-140)
== END 2021-04-27 23:59 | disposition home or self-care (01) ==
LOC: WOBLAB 09:49
PROVIDERS: Visit Provider Obstetrics & Gynecology
DX: Z34.83 Encounter for supervision of other normal pregnancy, third trimester (principal)
CPT/HCPCS: 36415; 82950; 85027; 86850

== ENCOUNTER 2021-06-21 14:09 | Outpatient (CLI) | payer SELFPAY | END 2021-06-21 23:59 | disposition home or self-care (01) | LOC: LABSPEC 14:09 | PROVIDERS: Visit Provider Obstetrics & Gynecology | DX: Z36.85 Encounter for antenatal screening for Streptococcus B (principal) | CPT/HCPCS: 87077; 87081; 87186 ==

== ENCOUNTER 2021-07-02 20:35 | Outpatient (CLI) | payer SELFPAY ==
[2021-07-02 21:08] VITALS: BP 133/79; PULSE 112
[2021-07-02 21:16] VITALS: BMI 41.3
[2021-07-02 21:47] LABS: Color, Urine Yellow (Yellow); Glucose, Dipstick Normal (Normal); Ketone-Dipstick 15 mg/dl (Negative); Leukocyte Esterase-Dipstick Negative /ul (Negative); Nitrite-Dipstick Negative (Negative); Occult Blood-Urine 10 /ul (Negative); Protein-Dipstick 15 mg/dl (Negative); Urine Bilirubin Dipstick Negative (Negative); Urine Clarity Clear (Clear); Urine Urobilinogen Normal (Normal)
[2021-07-02 22:02] LABS: ROM Internal Control Test YES-OK TO RESULT pt. (Internal QC); ROM Patient Test Negative (Negative)
--- NOTE | 2021-07-03 08:56 | OB.TRI.HP_ITS ---
HPI - General HPI Narrative ADONIS ADAMS, is a 30 F who presents to labor and delivery with some leaking of fluid. She is approximately 37 weeks gestation. Maternal Data Information Final ANDREA: 07/18/21 Final ANDREA Source: US <20 weeks [facility] Medical History (Updated 07/03/21 @ 08:[address] Andre Burleson MD) 40 weeks gestation of Abnormal mammogram of right breast Abnormal ultrasound of breast Delivery of by section Endometritis Lump of right breast hemorrhage Home Medications 1 tab PO/SL DAILY 07/02/21 [History Last Taken 07/01/21] Allergy/AdvReac Type Severity Reaction Status Date / Time latex Allergy Rash Verified 01/23/19 12:34 codeine AdvReac Vomiting Verified 01/23/19 12:34 Family History Mother Hypertension High cholesterol Father High cholesterol Hypertension Surgical History (Updated 01/23/19 @ 12:38 by Piper Alvarado) History of Hx of right breast biopsy Hx of wisdom tooth extraction Social History (Updated 01/23/19 @ 15:[address] Vickey Tena MD) Smoking Status: Never smoker second hand exposure: No alcohol intake: current alcohol intake frequency: holidays/special occasions only substance use type: does not use caffeine: Yes what type of physical activity do you participate in: none frequency: does not exercise History Elective abortions Hx Para 0 Spontaneous abortions Hx # Term Pregnancies Ectopic pregnancies Hx # Pregnancies Multiple births # of living children NST FHR Rate Baby A NST Reactive:: Yes FHR Category:: Category I Assessment & Plan (1) Amniotic fluid leaking: PLAN: 37+ week intrauterine with some leaking of vaginal fluid. ROM test was negative. Some irritability on monitor but patient indicates contractions are no different than they have been for the past several weeks. Reactive nonstress. Will discharge to home with routine follow-up.
== END 2021-07-02 23:25 | disposition home or self-care (01) ==
LOC: WPOUT 20:41 → WP 20:42
PROVIDERS: Visit Provider Obstetrics & Gynecology
DX: O26.893 Other specified pregnancy related conditions, third trimester (principal); R32 Unspecified urinary incontinence; Z3A.37 37 weeks gestation of pregnancy
CPT/HCPCS: 59025; 59050; 81002; 84112; 87086; 87088; 99218; G0378

== ENCOUNTER 2021-07-13 05:10 | Inpatient (IN) | payer SELFPAY ==
--- NOTE | 2021-07-12 | FALS_PTH ---
PATIENT: ADONIS ADAMS LOC: [facility] U#:[id number] AGE/SX: 30/F ROOM: WP004 RE07/13/[address]: Dr. Teena Mejia MD : 1990 BED: 1 DIS: 07/14/2021 SPEC #: [id number] RECD: 07/13/21 09:41 STATUS: EARNEST BLANCHARD #: [id number] MART: 07/12/21 00:[address]: Teena Pan DEPT: SURGICAL PATHOLOGY RECD BY: Kenan Pandey Tissues: Fallopian tube Procedures: Surgery Specimen Level II HEADER OPERATION: Tubal ligation PRE-OP DIAGNOSIS: Sterilization TISSUE SUBMITTED: Fallopian tubes MICROSCOPIC DIAGNOSIS Bilateral fallopian tubes, tubal ligation: Completely transected segments of bilateral fallopian tubes, no pathologic diagnosis. MARCELLO:stefan 07/14/2021 MICROSCOPIC DESCRIPTION Slides are reviewed. GROSS DESCRIPTION Received in fixative is one container labeled with the patient's name and designated bilateral fallopian tubes, string left. The specimen consists of two tubular pieces of webb soft tissue. The left tube is identified by a suture. The right fallopian tube measures 0.9 cm in length and 0.5 cm in diameter and the left fallopian tube measures 1.2 cm in length and 0.7 cm in diameter. Both pieces are sectioned and submitted entirely in two cassettes as follows: 1 - right fallopian tube, 2 - left fallopian tube. / SJ:rg 07/13/2021 TC:4 CPT: 96991 x2
[2021-07-13] VITALS (16 sets, daily range): BP systolic 100–140; BP diastolic 54–73; PULSE 74–86; RESP 13–18; TEMP 36.1–37.1; O2SAT 95–100; BMI 42.9
[2021-07-13] MEDS: Lactated Ringers 1,000 ML 999 ML IV (05:30)
[2021-07-13] MEDS: Acetaminophen 500 MG Tablet 1000 MG PO ×3 (05:52→17:38)
[2021-07-13 06:04] LABS: Basophil# 0.03 X10^3/uL; Basophil% 0.4 % (0-1); Eosinophil# 0.09 X10^3/uL; Eosinophils% 1.1 % (0-5); Hematocrit 34.3 % (37-47); Hemoglobin 11.3 g/dL (12.0-15.0); Lymphocyte % 18.5 % (19-41); Mean Corp Hgb Conc 32.9 g/dL (32-36); Mean Corpuscular Hgb 29.2 pg (27.0-32.0); Mean Corpuscular Volume 88.6 fL (81-99); Monocyte% 4.9 % (0-10); NRBC Flagged by Analyzer 0 % (0-5); Neutrophil # 5.99 X10^3/uL (2.7-7.7); Neutrophil % 73.7 % (47-70); Platelet Count 220 K/mm3 (150-450); RBC Distribution Width CV 13.9 % (11.6-14.6); RBC Distribution Width SD 44.4 fl (35.1-43.9); Red Blood Count 3.87 M/mm3 (4.2-5.4); White Blood Count 8.1 K/mm3 (4.4-11.0)
[2021-07-13] MEDS: Lactated Ringers 1,000 ML 150 ML IV (06:45)
[2021-07-13] MEDS: Sodium Citrate/Citric Acid 30 ML UDC PO (06:59)
[2021-07-13] MEDS: Cefazolin 2 GM in 0.9% Normal Saline 100 ML IV (07:30)
--- NOTE | 2021-07-13 08:46 | OP.PCM_ITS ---
Assessment & Plan (1) 39 weeks gestation of : Maternal Data Information ANDREA Calculator Estimated Delivery Date Method Current WG Current Estimate 07/17/21 LMP (Certain) 39w 3d Other Estimates 07/18/21 Ultrasound #1 39w 2d Details Operative Information Date of Procedure: 07/13/21 Pre-Operative Diagnosis: 1. 39 3/7 weeks gestation 2. History of prior Caesarean section Post-Operative Diagnosis: 1. 39 3/7 weeks gestation 2. History of prior Caesarean section Indications for : Repeat Elective and Desires elective sterilization Indications Narrative: 30-year-old 2 para 1-0-0-1 presents at 39-3/7 weeks gestational age for scheduled repeat section with bilateral salpingectomy. She had a history of traumatic primary section with hemorrhage requiring repeat surgery and transfusion and desired repeat section. She was counseled regarding risks, benefits, indications and alternatives of tubal sterilization and opted to proceed. Classification: Scheduled Procedure Type: low transverse trigonometry teacher #1: Du Bautista Type of Anesthesia: Spinal Anesthesiologist: Gadiel Butler Antibiotic Given: Ancef 2 grams IV x1 Estimated Blood Loss: 900 ml Fluids Replaced: 1100 ml Findings Description of Procedure: The patient was taken to the operating room and spinal analgesia was administered. She is placed in a dorsal supine position with left lateral tilt. The perineum and abdomen were prepped and draped in sterile fashion. And the spinal was found to be adequate. A Pfannenstiel incision was made using a scalpel and brought down to incise the subcutaneous tissue and rectus fascia at the midline. Subcutaneous tissue was bluntly dissected off the fascia laterally. The fascial incision was dissected laterally and cephalad using curved Tucker scissors. The superior leaflet of the rectus fascia was grasped using Manuel clamps and bluntly dissected and sharply dissected from the underlying rectus muscle. In a similar fashion the inferior rectus fascia was dissected from the underlying muscle. The rectus muscles were bluntly at the midline. The peritoneum was identified and entered [sharply]. The b ladder blade was placed into the abdomen. There were filmy adhesions of the lower uterus to the anterior abdominal wall. These adhesions were bluntly dissected and the vesicouterine peritoneal fold clearly identified identified. The fold was incised and a bladder flap created. Bladder blade was then repositioned to the abdomen. A low transverse hysterotomy was made using the [Metzenbaum scissors] to level of the membranes. The hysterotomy was extended bluntly cephalad and caudad. The membranes were then ruptured revealing clear fluid. The head was elevated and brought to the level of the hysterotomy and the delivered revealing vigorous [female] infant. The cord was doubly clamped and cut after 30 seconds. The infant was passed to awaiting [nursery personnel]. The placenta was [expressed] from the uterus and appeared intact on inspection. The uterus was exteriorized and cleared of debris. The hysterotomy was then repaired using 0 Vicryl running lock suture. A [id number] suture was placed for additional hemostasis along the midline portion of the repair with hemostasis obtained. The right adnexa had significant adhesions obscuring the tubal fimbria. The round ligament and tube were identified separately. The ampullary portion of the tube was isolated and a defect made in the mesosalpinx using the Bovie. This portion of the tube was ligated using 0 plain gut suture proximally and distally. An approximately 2 cm intervening tubal segment was excised in [place] fashion. Similarly the left distal tube was adhered to the right ovary, this was a dense adhesion also obscuring the distal tube. The surrounding anatomy including the round ligament was clearly identified as a separate structure. The right tube was isolated and [place] partial salpingectomy was performed with ligation of the proximal distal tube and excision of the intervening tubal segment. The uterus and adnexa were returned to the abdomen. The anterior cul-de-sac was cleared of debris. The peritoneum and was reapproximated using 2-0 Vicryl running suture. The rectus fascia was closed using 0 strata fix running suture. The subcutaneous tissue was reapproximated using 2-0 Vicryl. The skin was closed using 4-0 Monocryl subcuticularly by the SECURITY SERVICES SPECIALIST under my supervision. Silver Mepilex occlusive dressing was placed over the incision. The fundus was firm. The patient was then transferred to the recovery room without complication. Sponge, instrument, and needle counts were correct ?2. 4085 g Presentation: Positive for Vertex Amniotic Fluid Description: Clear Cord Vessel Description: 3 Vessels Cord Entanglement: Around neck x 1, loose Infant A Gender: Female (1 minute): 9 (5 minute): 9 Delayed Cord Clamping: Yes Complications Risks of Surgery Discussed w/Patient: Bleeding, Anesthesia Risks, Infection, Permanency, Failure Rate of 1 to 2%, Injury to surrounding structure(s) including bowel and bladder and Availability of other non-permanent control options
[2021-07-13] MEDS: Oxytocin 30 units/NS 500 ml 30 UNITS/500 ML IV.SOLN 167 UNITS IV (08:50)
[2021-07-13] MEDS: Ketorolac 30 MG/ML Syringe IV ×3 (09:07→21:06)
[2021-07-13] MEDS: 0.9% Saline Lock 10 ML Syringe IV ×2 (09:08→21:06)
[2021-07-13] MEDS: Lactated Ringers 1,000 ML 100 ML IV (11:52)
[2021-07-13] MEDS: HYDROmorphone 0.5 MG/0.5 ML SYRINGE IV (12:26)
[2021-07-13] MEDS: Senna/Docusate Sodium 1 Tablet PO (15:30)
[2021-07-13] MEDS: Enoxaparin 40 MG/0.4 ML Syringe SC (21:06)
[2021-07-14] MEDS: Acetaminophen 500 MG Tablet 1000 MG PO ×3 (00:17→12:04)
[2021-07-14 00:20] VITALS: BP 106/67; PULSE 87; RESP 16; TEMP 36.4; O2SAT 95
[2021-07-14] MEDS: Ketorolac 30 MG/ML Syringe IV (04:09)
[2021-07-14] MEDS: 0.9% Saline Lock 10 ML Syringe IV (04:10)
[2021-07-14 04:20] VITALS: BP 118/57; PULSE 75; RESP 18; TEMP 36.3; O2SAT 97
[2021-07-14 06:29] LABS: Hematocrit 29.3 % (37-47); Hemoglobin 9.6 g/dL (12.0-15.0); Mean Corp Hgb Conc 32.8 g/dL (32-36); Mean Corpuscular Hgb 29.4 pg (27.0-32.0); Mean Corpuscular Volume 89.6 fL (81-99); Mean Platelet Vol. 9.8 fl (6.2-12.0); Platelet Count 195 K/mm3 (150-450); RBC Distribution Width CV 14.1 % (11.6-14.6); RBC Distribution Width SD 45.4 fl (35.1-43.9); Red Blood Count 3.27 M/mm3 (4.2-5.4); White Blood Count 9.6 K/mm3 (4.4-11.0)
[2021-07-14 07:37] VITALS: BP 141/77; PULSE 70; RESP 16; TEMP 36.6; O2SAT 98
--- NOTE | 2021-07-14 07:49 | PCM.PN.OB ---
Subjective Subjective Pain is controlled, out of bed and ambulating without difficulty. Passing flatus. Voiding without difficulty. Tolerates p.o. Request discharge to home today. is nursing well. Objective Data Objective Data Vital Signs: Vital Signs Temp Pulse Resp BP Pulse Ox 97.4 F L 75 18 118/57 L 97 07/14/21 04:20 07/14/21 04:20 07/14/21 04:20 07/14/21 04:20 07/14/21 04:20 Oxygen Delivery Method Room Air Weight: 106.413 kg Body Mass Index (BMI) 42.9 Intake & Output: Intake and Output for Last 24 Hours 07/12/21 07/13/21 07/14/21 23:59 23:59 23:59 Intake Total 3240.0 / 3240.0 Output Total 1550 / 1550 Balance 1690.0 / 1690.0 Lab / Micro Data Result Diagrams: 07/14/21 06:19 Labs: Laboratory Results - last 24 hr 07/14/21 06:19: WBC 9.6, RBC 3.27 L, Hgb 9.6 L, Hct 29.3 L, MCV 89.6, MCH 29.4, MCHC 32.8, RDW Std Deviation 45.4 H, RDW Coeff of Hardeep 14.1, Plt Count 195, MPV 9.8 Micro: Microbiology 07/13/21 05:30 Nasal Secretion SARS-CoV-2 Antigen (Rapid) - Final Physical Exam Const alert, oriented x3 and no apparent distress Resp normal respiratory effort, normal air movement and clear to auscultation bilaterally Cardio regular rate, regular rhythm, S1 normal heart sound and S2 normal heart sound GI normal to inspection, nondistended, normoactive bowel sounds, soft to palpation, non-tender and non-distended GI Narrative: Incisional dressing clean dry and intact Manual OB Exam: other lochia scant Uterus Palpation: uterus fundus firm Extremity no calf tenderness Extremity Narrative: +1 bilateral pedal edema Assessment & Plan (1) delivery delivered: PLAN: A-, a negative Routine postop care Patient desires discharge today, will repeat blood pressure and if appropriate plan for discharge
--- NOTE | 2021-07-14 07:51 | NURSING ---
BP noted to be slightly elevated, physician in room, assessing fundus at time of BP, pt. reporting some pain. Will reassess.
[2021-07-14 07:52] VITALS: BP 110/65
--- NOTE | 2021-07-14 07:55 | DS.PCM_ITS ---
Providers Date of Admission: 07/13/21 Primary Care Physician: YVES VENTURA Reason For Visit: REPEAT C SECTION Diagnosis Discharge Diagnosis (1) delivery delivered: Status: Acute Code(s): O82 - Encounter for delivery without indication Medications at Discharge Home Medications 1 tab PO/SL DAILY 07/02/21 ibuprofen 600 mg PO Q6 PRN #30 tab 07/14/21 Hospital Course Operations section Summary of Care Provided Hospital Course: 30yo admitted at 39 3/7 weeks gestation for scheduled repeat section and tubal sterilization. She had significant adnexal adhesions thus underwent bilateral partial salpingectomy rather than total salpingectomy as planned. Her course was otherwise unremarkable and she was discharged to home on postoperative day #1. Physical Exam Const alert, oriented x3 and no apparent distress General Appearance: cooperative and comfortable HEENT normocephalic Resp Auscultation: clear to auscultation bilaterally Cardio regular rate, regular rhythm, S1 normal heart sound and S2 normal heart sound GI normal to inspection, nondistended, normoactive bowel sounds, soft to palpation and non-tender GI Narrative: incisional dressing c/d/i OB / External & Speculum: other Uterus Palpation: other OB Fundus firm and nontender Extremity no calf tenderness Weight / BMI Weight Weight: 106.413 kg Body Mass Index (BMI) 42.9 ABG / Lab / Microbiology Data Result Diagrams: 07/14/21 06:19 Laboratory: Laboratory Results - last 24 hr 07/14/21 06:19: WBC 9.6, RBC 3.27 L, Hgb 9.6 L, Hct 29.3 L, MCV 89.6, MCH 29.4, MCHC 32.8, RDW Std Deviation 45.4 H, RDW Coeff of Hardeep 14.1, Plt Count 195, MPV 9.8 Microbiology: Microbiology 07/13/21 05:30 Nasal Secretion SARS-CoV-2 Antigen (Rapid) - Final D/C Instructions Discharge Diet: No restrictions Discharge Activity: May Shower May resume sexual activity in: 4-6 weeks Lifting Restricted to (Lbs): 10 Call your doctor if you observe: Fever of 101 or Higher, Using more than 1 pad per hour, Shortness of breath, Chest pain, Calf discomfort, Uncontrolled pain a nd - (Persistent or severe headache) Suture Line Care: Avoid Pulling/Pushing Remove Dressing in: 4 days Cleanse incision/area with: Soap & Water Please Follow Up With: Teena Pan MD When: 1-2 weeks for incision check 6 weeks for visit Meaningful Use Info Meaningful Use Diagnoses (Choose all that apply): None applicable Discharge Plan Admission Admit Date/Time: 07/13/21 05:10 Primary Reason for Your Visit: delivery, tubal sterilization Attending Provider: Teena Pan Discharge Orders/Prescriptions Prescriptions: New ibuprofen 600 mg Tablet 600 mg PO Q6 PRN (Reason: pain) Qty: 30 RF: 0 Continued 1 tab PO/SL DAILY RF: 0 Referrals / Follow Up: YVES VENTURA [Other] Disposition Disposition (needs filled in before D/C Order can be placed): Home, Self Care
[2021-07-14] MEDS: Senna/Docusate Sodium 1 Tablet PO (09:58)
[2021-07-14] MEDS: Enoxaparin 40 MG/0.4 ML Syringe SC (09:59)
[2021-07-14] MEDS: Ibuprofen 600 MG Tablet PO (12:03)
[2021-07-14 12:14] VITALS: BP 116/66; PULSE 82; RESP 16; TEMP 36.3; O2SAT 97
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
[2021-07-17 17:42] LABS: Pathology Specimen OB SEE PATHOLOGY REPORT
== END 2021-07-14 13:30 | disposition home or self-care (01) | DRG 785 ==
PROVIDERS: Admitting Provider Obstetrics & Gynecology; Referring Provider Obstetrics & Gynecology; Visit Provider Obstetrics & Gynecology
PROC: 0UT70ZZ Resection of Bilateral Fallopian Tubes, Open Approach (ICD-10-PCS; CPT 59514; principal; 2021-07-13 07:15)
DX: O34.211 Maternal care for low transverse scar from previous cesarean delivery (principal); Z37.0 Single live birth; Z3A.39 39 weeks gestation of pregnancy
CPT/HCPCS: 59050; 85025; 85027; 86850; 86900; 86901; 87426; 88302; 99218; J7120; A4216; G0378; J2405